=== PATIENT | female | born 1940 | race Caucasian/White ===

== ENCOUNTER 2017-05-02 06:16 | Emergency (ER) | payer MEDICARE, OTHER ==
[~2017-05-02] VITALS: Ht 175.3 cm; Wt 93.0 kg
[~2017-05-02 06:16] MED LIST: ACET325 PO; ACETAMINOPHEN500 MG PO; ALUMAG30SU PO; AMIT25 PO; ASPI81EC PO; ATOR40TA PO; Acetaminophen325 M1 PO; BISA10S PR; BISA5EC PO; BISHYD10 PO; BISHYD5 PO; BISO5 PO; BUTASPCAFT PO; Bacid1 EACH PO; Bactrim Ds Tab1 EACH PO; CALCAVITD PO; CALCAVITDA PO; CELE200 PO; CHLAMI PO; COLE625 PO; Cardizem CD 24240 MG PO; Cipro500 MG PO; DILT180 PO; DOCU100 PO; Diltiazem ER240 MG PO; ERGO400 PO; ESTR2 PO; FLUC150A PO; FURO40 PO; Flagyl500 MG PO; Florastor250 MG PO; GABA300 PO; GAVILAX17 GM PO; GEMF600; GEMF600 PO; GUAI600T33 PO; Glimepiride1 MG PO; HYDR1TAB94 PO; HYDRA25 PO; INSDET100 SC; INSU100I6 SC; Keflex500 MG PO; LISI5 PO; LOVA20 PO; LOVA40 PO; Lomotil Tablet1 EACH PO; MELO7.5 PO; METO50ER PO; METR500 PO; Milk Of Ma400 MG/5 M PO; Nystatin15 GM TOP; OMEP20ER PO; OXYC5 PO; Omeprazole20 M1; PANT40 PO; POTA10T PO; POTCHL10ER PO; POTCHL20ER PO; POTPHO PO; PROM25 PO; PSEU120ER PO; Pantoprazole So40 MG PO; Pedi-Dri 100,0060 GM TOP; Percocet 5-3251 EACH PO; Protonix40 MG PO; Questran4 GM PO; RANI150 PO; Roxicodone5 MG PO; SACC250C PO; SENN187 PO; Sulfamethoxazo1 EAC4 PO; TEMA15 PO; TRAN2 PO; TRAN4 PO; Toprol Xl50 MG PO; VANCOCIN HCL PO; XARELTO15 MG PO; ZINC20TO TOP; [UNRECOGNIZED DRUG - OTHER] MM
[2017-05-02 06:54] LABS: Source, Urine Clean Catch
[2017-05-02 06:57] LABS: Bilirubin, Urine Neg (Neg); Blood, Urine 3+ (Neg); Glucose Qualitative, Urine Neg (Neg); Ketones, Urine Neg (Neg); Leukocyte Esterase, Urine 3+ (Neg); Nitrite, Urine Neg (Neg); Protein, Urine 3+ (Neg); Specific Gravity, Urine 1.025 (1.003-1.022); Urobilinogen, Urine NORM (Normal)
[2017-05-02 07:02] LABS: Appearance, Urine Hazy (Clear); Color, Urine Yellow (P-Yellow)
[2017-05-02 07:03] LABS: Bacteria Many /hpf; Squamous Epithelial Cells Few /hpf (Few); White Blood Cells, Urine 25-50 /hpf (0-5)
[2017-05-02] MEDS ORDERED: Cipro500 MG PO (07:15)
[2017-05-02] MEDS ORDERED: Pyridium200 MG PO (07:15)
[2017-06-22] MEDS ORDERED: LOVA40 PO (08:26)
[2017-06-22] MEDS ORDERED: AMIT10 PO (08:26)
== END 2017-05-02 07:25 | disposition home or self-care (01) ==
LOC: ER 06:16
PROVIDERS: Emergency Medicine
DX: N39.0 Urinary tract infection, site not specified (principal); E11.40 Type 2 diabetes mellitus with diabetic neuropathy, unspecified; I10 Essential (primary) hypertension; Z91.048 Other nonmedicinal substance allergy status; Z91.018 Allergy to other foods; Z88.8 Allergy status to other drugs, medicaments and biological substances; Z79.899 Other long term (current) drug therapy; Z79.4 Long term (current) use of insulin
CPT/HCPCS: 81001; 87077; 87086; 87186; 99283

== ENCOUNTER 2017-06-05 10:58 | Emergency (ER) | payer MEDICARE, OTHER ==
[~2017-06-05] VITALS: Ht 165.1 cm; Wt 81.7 kg
[~2017-06-05 10:58] MED LIST changes: +Pyridium200 MG PO
[2017-06-05 12:29] LABS: Source, Urine Clean Catch
[2017-06-05 12:44] LABS: Bilirubin, Urine Neg (Neg); Blood, Urine 2+ (Neg); Glucose Qualitative, Urine Neg (Neg); Ketones, Urine Neg (Neg); Leukocyte Esterase, Urine 3+ (Neg); Nitrite, Urine Neg (Neg); Protein, Urine 2+ (Neg); Urobilinogen, Urine NORM (Normal)
[2017-06-05 12:58] LABS: Adenovirus F 40/41 Not Detected (NOT DETECT); Astrovirus Not Detected (NOT DETECT); Campylobacter Sp Not Detected (NOT DETECT); Cryptosporidium Not Detected (NOT DETECT); Cyclospora Cayetanensis Not Detected (NOT DETECT); E. Coli O157 Not Detected (NOT DETECT); Entamoeba Histolytica Not Detected (NOT DETECT); Enteroaggregative E. coli-EAEC Not Detected (NOT DETECT); Enteropathogenic E. coli-EPEC Not Detected (NOT DETECT); Enterotoxigenic E. coli-ETEC Not Detected (NOT DETECT); Giardia Lamblia Not Detected (NOT DETECT); Norovirus GI/GII Not Detected (NOT DETECT); Plesiomonas Shigelloides Not Detected (NOT DETECT); Rotavirus A Not Detected (NOT DETECT); Salmonella Sp Not Detected (NOT DETECT); Sapovirus Not Detected (NOT DETECT); Shiga Toxin-prod E. coli-STEC Not Detected (NOT DETECT); Shigella/Enteroin E. coli-EIEC Not Detected (NOT DETECT); Vibrio Cholerae Not Detected (NOT DETECT); Vibrio Sp Not Detected (NOT DETECT); Yersinia Enterocolitica Not Detected (NOT DETECT)
[2017-06-05 13:03] LABS: BASOPHILS ABSOLUTE AUTO 0.04 K/mm3 (0.00-0.23); BASOPHILS PERCENT AUTO 0 % (0-2); EOSINOPHILS PERCENT AUTO 1 % (0-6); Hematocrit 40.6 % (33.0-51.0); Hemoglobin 13.2 g/dL (11.5-16.0); IMMATURE GRAN ABSOLUTE AUTO 0.03 K/mm3 (0.00-0.10); IMMATURE GRAN PERCENT AUTO 0 % (0-1); LYMPHOCYTES ABSOLUTE AUTO 4.18 K/mm3 (0.84-5.20); LYMPHOCYTES PERCENT AUTO 29 % (21-46); MONOCYTES PERCENT AUTO 10 % (4-13); Mean Corpuscular HGB 29.4 pg (26.0-34.0); Mean Corpuscular HGB Conc 32.5 g/dL (31.5-36.5); Mean Corpuscular Volume 90 fL (80-100); Mean Platelet Volume 10.3 fL (9.1-12.4); NEUTROPHILS ABSOLUTE AUTO 8.67 K/mm3 (1.96-9.15); NEUTROPHILS PERCENT AUTO 60 % (41-73); Platelet Count 277 K/mm3 (150-400); RDW Coefficient Variation 13.4 % (11.7-14.2); RDW Standard Deviation 44.3 fL (35.1-46.3); Red Blood Cell Count 4.49 M/mm3 (3.80-5.20); White Blood Cell Count 14.52 K/mm3 (4.00-11.30)
[2017-06-05 13:09] LABS: Appearance, Urine Hazy (Clear); Color, Urine Yellow (P-Yellow)
[2017-06-05 13:11] LABS: Squamous Epithelial Cells Few /hpf (Few); White Blood Cells, Urine 25-50 /hpf (0-5)
[2017-06-05 13:12] LABS: Bacteria Few /hpf; Transitional Epithelial Cells Few /hpf (0-Rare)
[2017-06-05 13:13] LABS: Renal Epithelial Few /hpf (0-Rare)
[2017-06-05 13:28] LABS: Alanine Aminotransfer (ALT/SGP 25 U/L (12-78); Albumin, Blood 3.4 g/dL (3.4-5.0); Albumin/Globulin Ratio 0.8 (0.8-1.8); Alk Phos 79 U/L (50-136); Anion Gap 6 mmol/L (6-16); Aspartate Aminotrans (AST/SGOT 12 U/L (12-37); Bilirubin, Total 0.3 mg/dL (0.1-1.0); Blood Urea Nitrogen 21 mg/dL (8-24); Bun/Creatinine Ratio 22.2 (12.0-20.0); CO2, Blood 29 mmol/L (21-32); Calcium, Blood 9.9 mg/dL (8.5-10.1); Chloride, Blood 105 mmol/L (98-108); Creatinine, Blood 0.95 mg/dL (0.40-1.00); Globulin, Blood 4.3 g/dL (2.2-4.0); Glomerular Filtration Rate >60 (60-); Glucose, Blood 116 mg/dL (70-99); Potassium, Blood 4.2 mmol/L (3.5-5.5); Sodium, Blood 140 mmol/L (136-145); Total Protein, Blood 7.7 g/dL (6.4-8.2)
[2017-06-05] MEDS ORDERED: Keflex500 MG PO (13:39)
[2017-06-05] MEDS ORDERED: Pyridium200 MG PO (13:40)
== END 2017-06-05 14:18 | disposition home or self-care (01) ==
LOC: ER 10:58
PROVIDERS: Emergency Medicine
DX: N39.0 Urinary tract infection, site not specified (principal); L08.9 Local infection of the skin and subcutaneous tissue, unspecified; E11.40 Type 2 diabetes mellitus with diabetic neuropathy, unspecified; I10 Essential (primary) hypertension; Z85.528 Personal history of other malignant neoplasm of kidney
CPT/HCPCS: 36415; 80053; 81001; 85025; 87077; 87086; 87186; 87507; 96365; 99283; J0696

== ENCOUNTER 2017-06-22 07:29 | Emergency (ER) | payer MEDICARE, OTHER ==
[~2017-06-22] VITALS: Ht 165.1 cm; Wt 81.7 kg
[2017-06-22 07:49] LABS: BASOPHILS ABSOLUTE AUTO 0.03 K/mm3 (0.00-0.23); BASOPHILS PERCENT AUTO 0 % (0-2); EOSINOPHILS ABSOLUTE AUTO 0.19 K/mm3 (0.00-0.68); EOSINOPHILS PERCENT AUTO 2 % (0-6); Hematocrit 40.7 % (33.0-51.0); Hemoglobin 13.1 g/dL (11.5-16.0); IMMATURE GRAN ABSOLUTE AUTO 0.02 K/mm3 (0.00-0.10); IMMATURE GRAN PERCENT AUTO 0 % (0-1); LYMPHOCYTES ABSOLUTE AUTO 2.51 K/mm3 (0.84-5.20); LYMPHOCYTES PERCENT AUTO 29 % (21-46); MONOCYTES ABSOLUTE AUTO 0.58 K/mm3 (0.16-1.47); MONOCYTES PERCENT AUTO 7 % (4-13); Mean Corpuscular HGB 29.6 pg (26.0-34.0); Mean Corpuscular HGB Conc 32.2 g/dL (31.5-36.5); Mean Corpuscular Volume 92 fL (80-100); Mean Platelet Volume 10.2 fL (9.1-12.4); NEUTROPHILS ABSOLUTE AUTO 5.44 K/mm3 (1.96-9.15); NEUTROPHILS PERCENT AUTO 62 % (41-73); Platelet Count 236 K/mm3 (150-400); RDW Coefficient Variation 13.1 % (11.7-14.2); Red Blood Cell Count 4.42 M/mm3 (3.80-5.20); White Blood Cell Count 8.77 K/mm3 (4.00-11.30)
[2017-06-22 08:01] LABS: International Normalized Ratio 1.01; Prothrombin Time Results 10.5 Sec (9.7-11.5)
[2017-06-22 08:10] LABS: Alanine Aminotransfer (ALT/SGP 51 U/L (12-78); Albumin, Blood 3.3 g/dL (3.4-5.0); Albumin/Globulin Ratio 0.8 (0.8-1.8); Alk Phos 77 U/L (50-136); Anion Gap 7 mmol/L (6-16); Aspartate Aminotrans (AST/SGOT 34 U/L (12-37); Bilirubin, Total 0.2 mg/dL (0.1-1.0); Blood Urea Nitrogen 21 mg/dL (8-24); Bun/Creatinine Ratio 24.2 (12.0-20.0); CO2, Blood 27 mmol/L (21-32); Calcium, Blood 9.2 mg/dL (8.5-10.1); Chloride, Blood 108 mmol/L (98-108); Creatinine, Blood 0.87 mg/dL (0.40-1.00); Ethanol (Alcohol), Blood, Med <3 mg/dL; Glomerular Filtration Rate >60 (60-); Glucose, Blood 145 mg/dL (70-99); Potassium, Blood 4.1 mmol/L (3.5-5.5); Sodium, Blood 142 mmol/L (136-145); Total Protein, Blood 7.3 g/dL (6.4-8.2)
[2017-06-22] MEDS ORDERED: LOVA40 (08:26)
[2017-06-22] MEDS ORDERED: TERB250 PO (08:26)
[2017-06-22] MEDS ORDERED: AMIT10 (08:26)
[2017-06-22] MEDS ORDERED: Lotrimin Ultra12 GM (08:26)
== END 2017-06-22 09:00 | disposition home or self-care (01) ==
LOC: ER 07:29
PROVIDERS: Physician Assistant
DX: S00.83XA Contusion of other part of head, initial encounter (principal); E11.40 Type 2 diabetes mellitus with diabetic neuropathy, unspecified; I10 Essential (primary) hypertension; Z91.048 Other nonmedicinal substance allergy status; Z91.018 Allergy to other foods; Z88.8 Allergy status to other drugs, medicaments and biological substances; Z79.899 Other long term (current) drug therapy; Z79.4 Long term (current) use of insulin; Z79.01 Long term (current) use of anticoagulants; W18.30XA Fall on same level, unspecified, initial encounter
CPT/HCPCS: 36415; 70450; 80053; 83690; 85025; 85610; 85730; 96374; 99284; G0480; J0360

== ENCOUNTER 2017-10-22 20:54 | Emergency (ER) | payer MEDICARE ==
[~2017-10-22] VITALS: Ht 165.1 cm; Wt 79.4 kg
[~2017-10-22 20:54] MED LIST changes: +AMIT10 PO; +Lotrimin Ultra12 GM; +TERB250 PO
[2017-10-22] MEDS ORDERED: METO100ER PO (21:10)
[2017-10-22] MEDS ORDERED: TRIM100 PO (21:13)
[2017-10-22] MEDS ORDERED: FISH OIL 1,0001 EAC1 PO (21:15)
[2017-10-22] MEDS ORDERED: METF500C PO (21:16)
[2017-10-22] MEDS ORDERED: MYRBETRIQ50 MG PO (21:17)
[2017-10-22] MEDS ORDERED: TROSPIUM CHLORI20 MG PO (21:17)
[2017-10-22] MEDS ORDERED: ESTROVEN 155 M155 MG (21:18)
[2017-10-22 21:59] LABS: BASOPHILS ABSOLUTE AUTO 0.03 K/mm3 (0.00-0.23); BASOPHILS PERCENT AUTO 0 % (0-2); EOSINOPHILS ABSOLUTE AUTO 0.21 K/mm3 (0.00-0.68); EOSINOPHILS PERCENT AUTO 3 % (0-6); Hematocrit 41.3 % (33.0-51.0); Hemoglobin 13.7 g/dL (11.5-16.0); IMMATURE GRAN ABSOLUTE AUTO 0.01 K/mm3 (0.00-0.10); IMMATURE GRAN PERCENT AUTO 0 % (0-1); LYMPHOCYTES ABSOLUTE AUTO 3.36 K/mm3 (0.84-5.20); LYMPHOCYTES PERCENT AUTO 42 % (21-46); MONOCYTES ABSOLUTE AUTO 0.68 K/mm3 (0.16-1.47); MONOCYTES PERCENT AUTO 9 % (4-13); Mean Corpuscular HGB 31.1 pg (26.0-34.0); Mean Corpuscular HGB Conc 33.2 g/dL (31.5-36.5); Mean Corpuscular Volume 94 fL (80-100); Mean Platelet Volume 9.8 fL (9.1-12.4); NEUTROPHILS ABSOLUTE AUTO 3.64 K/mm3 (1.96-9.15); NEUTROPHILS PERCENT AUTO 46 % (41-73); Platelet Count 218 K/mm3 (150-400); RDW Coefficient Variation 13.7 % (11.7-14.2); RDW Standard Deviation 46.9 fL (35.1-46.3); White Blood Cell Count 7.93 K/mm3 (4.00-11.30)
[2017-10-22 22:12] LABS: Albumin, Blood 3.5 g/dL (3.4-5.0); Albumin/Globulin Ratio 0.9 (0.8-1.8); Bilirubin, Total 0.2 mg/dL (0.1-1.0); Bun/Creatinine Ratio 18.9 (12.0-20.0); Calcium, Blood 9.5 mg/dL (8.5-10.1); Creatinine, Blood 1.11 mg/dL (0.40-1.00); Globulin, Blood 3.8 g/dL (2.2-4.0); Potassium, Blood 4.1 mmol/L (3.5-5.5); Total Protein, Blood 7.3 g/dL (6.4-8.2)
[2017-10-22 22:25] LABS: Source, Urine Clean Catch
[2017-10-22 22:28] LABS: Bilirubin, Urine Neg (Neg); Blood, Urine 5+ (Neg); Glucose Qualitative, Urine Neg (Neg); Ketones, Urine Neg (Neg); Leukocyte Esterase, Urine 1+ (Neg); Nitrite, Urine Neg (Neg); Protein, Urine 3+ (Neg); Urobilinogen, Urine NORM (Normal)
[2017-10-22 22:40] LABS: Appearance, Urine Turbid (Clear); Color, Urine Red (P-Yellow)
[2017-10-22 22:41] LABS: Bacteria Rare /hpf; Red Blood Cells, Urine TNTC /hpf (0-2); Squamous Epithelial Cells Rare /hpf (Few); Transitional Epithelial Cells Few /hpf (0-Rare)
== END 2017-10-23 | disposition home or self-care (01) ==
LOC: ER 20:54
PROVIDERS: Emergency Medicine
DX: R31.9 Hematuria, unspecified (principal); E11.40 Type 2 diabetes mellitus with diabetic neuropathy, unspecified; I10 Essential (primary) hypertension; Z91.048 Other nonmedicinal substance allergy status; Z91.018 Allergy to other foods; Z88.8 Allergy status to other drugs, medicaments and biological substances; Z79.899 Other long term (current) drug therapy
CPT/HCPCS: 36415; 74176; 80053; 81001; 85025; 87077; 87086; 87186; 99283-25

== ENCOUNTER → 2017-11-17 | Outpatient (CLI) | payer MEDICARE, OTHER ==
[~2017-11-17] MED LIST changes: +ESTROVEN 155 M155 MG; +FISH OIL 1,0001 EAC1 PO; +METF500C PO; +METO100ER PO; +MYRBETRIQ50 MG PO; +TRIM100 PO; +TROSPIUM CHLORI20 MG PO
== END ==
LOC: LAB EV 05:26 → LAB FUT 06-14 11:50 → EDSTATUS 06-14 11:50
DX: R19.7 Diarrhea, unspecified (principal)
CPT/HCPCS: 87493

== ENCOUNTER 2018-02-13 20:35 | Emergency (ER) | payer MEDICARE, OTHER ==
[~2018-02-13] VITALS: Ht 165.1 cm; Wt 82.5 kg
[~2018-02-13 20:35] MED LIST changes: -Bactrim 400-801 EACH PO
[2018-02-13] MEDS ORDERED: Bactrim 400-801 EACH PO (21:17)
== END 2018-02-13 23:05 | disposition home or self-care (01) ==
LOC: ER 20:35
DX: S09.90XA Unspecified injury of head, initial encounter (principal); Z79.01 Long term (current) use of anticoagulants; W01.198A Fall on same level from slipping, tripping and stumbling with subsequent striking against other object, initial encounter; Z91.018 Allergy to other foods; Z88.8 Allergy status to other drugs, medicaments and biological substances; Z91.048 Other nonmedicinal substance allergy status; Z79.899 Other long term (current) drug therapy; E11.40 Type 2 diabetes mellitus with diabetic neuropathy, unspecified; I10 Essential (primary) hypertension; Z86.73 Personal history of transient ischemic attack (TIA), and cerebral infarction without residual deficits
CPT/HCPCS: 70450; 72125; 99284-25

== ENCOUNTER → 2018-02-13 | Outpatient (CLI) | payer MEDICARE, SELFPAY ==
[~2018-02-13] MED LIST changes: +Bactrim 400-801 EACH PO
[2018-02-13 12:31] LABS: Blood, Urine 5+ (Neg); Glucose Qualitative, Urine Neg (Neg); Ketones, Urine Neg (Neg); Leukocyte Esterase, Urine 3+ (Neg); Nitrite, Urine Pos (Neg); Protein, Urine 3+ (Neg); Specific Gravity, Urine 1.015 (1.003-1.022); Urobilinogen, Urine 2+ (Normal)
[2018-02-13 12:43] LABS: Bilirubin, Urine 2+ (Neg)
[2018-02-13 12:46] LABS: Appearance, Urine Hazy (Clear); Bacteria Few /hpf; Color, Urine Amber (P-Yellow); Red Blood Cells, Urine TNTC /hpf (0-2); Squamous Epithelial Cells Not Seen /hpf (Few); White Blood Cells, Urine TNTC /hpf (0-5)
== END | disposition home or self-care (01) ==
LOC: LAB 12:14 → LAB SHORT 12:14 → LAB FUT 02-13 09:50 → EDSTATUS 02-13 09:50
PROVIDERS: Urology
DX: Z09 Encounter for follow-up examination after completed treatment for conditions other than malignant neoplasm (principal); Z87.440 Personal history of urinary (tract) infections
CPT/HCPCS: 81001; 87077; 87086; 87186

== ENCOUNTER 2018-03-05 15:13 | Emergency (ER) | payer MEDICARE, SELFPAY ==
[~2018-03-05] VITALS: Ht 165.1 cm; Wt 82.5 kg
[~2018-03-05 15:13] MED LIST changes: +Bactrim 400-801 EACH PO
== END 2018-03-05 16:25 | disposition home or self-care (01) ==
LOC: ER 15:13
DX: R31.9 Hematuria, unspecified (principal); Z91.048 Other nonmedicinal substance allergy status; Z91.040 Latex allergy status; Z88.8 Allergy status to other drugs, medicaments and biological substances; Z79.899 Other long term (current) drug therapy; E11.40 Type 2 diabetes mellitus with diabetic neuropathy, unspecified; I10 Essential (primary) hypertension; Z86.73 Personal history of transient ischemic attack (TIA), and cerebral infarction without residual deficits
CPT/HCPCS: 51702; 99283

== ENCOUNTER 2018-03-07 13:21 | Observation (INO) | payer MEDICARE, SELFPAY ==
[~2018-03-07] VITALS: Ht 165.1 cm; Wt 84.9 kg
[2018-03-07 14:10] LABS: Source, Urine Clean Catch
[2018-03-07 14:20] LABS: Bilirubin, Urine Neg (Neg); Blood, Urine 5+ (Neg); Glucose Qualitative, Urine Neg (Neg); Ketones, Urine 1+ (Neg); Leukocyte Esterase, Urine 2+ (Neg); Nitrite, Urine Pos (Neg); Protein, Urine 3+ (Neg); Specific Gravity, Urine 1.015 (1.003-1.022); Urobilinogen, Urine NORM (Normal)
[2018-03-07 14:33] LABS: Appearance, Urine Cloudy (Clear); Color, Urine Brown (P-Yellow)
[2018-03-07 14:35] LABS: Red Blood Cells, Urine TNTC /hpf (0-2)
[2018-03-07 14:36] LABS: Bacteria Not Seen /hpf; Squamous Epithelial Cells Not Seen /hpf (Few)
[2018-03-07 14:44] LABS: BASOPHILS ABSOLUTE AUTO 0.03 K/mm3 (0.00-0.23); BASOPHILS PERCENT AUTO 0 % (0-2); EOSINOPHILS ABSOLUTE AUTO 0.18 K/mm3 (0.00-0.68); EOSINOPHILS PERCENT AUTO 2 % (0-6); Hematocrit 37.7 % (33.0-51.0); Hemoglobin 11.8 g/dL (11.5-16.0); IMMATURE GRAN ABSOLUTE AUTO 0.02 K/mm3 (0.00-0.10); IMMATURE GRAN PERCENT AUTO 0 % (0-1); LYMPHOCYTES ABSOLUTE AUTO 4.02 K/mm3 (0.84-5.20); LYMPHOCYTES PERCENT AUTO 44 % (21-46); MONOCYTES ABSOLUTE AUTO 0.78 K/mm3 (0.16-1.47); MONOCYTES PERCENT AUTO 9 % (4-13); Mean Corpuscular HGB 31.4 pg (26.0-34.0); Mean Corpuscular HGB Conc 31.3 g/dL (31.5-36.5); Mean Corpuscular Volume 100 fL (80-100); Mean Platelet Volume 9.4 fL (9.1-12.4); NEUTROPHILS ABSOLUTE AUTO 4.12 K/mm3 (1.96-9.15); NEUTROPHILS PERCENT AUTO 45 % (41-73); Platelet Count 237 K/mm3 (150-400); RDW Coefficient Variation 14.4 % (11.7-14.2); RDW Standard Deviation 51.4 fL (35.1-46.3); Red Blood Cell Count 3.76 M/mm3 (3.80-5.20); White Blood Cell Count 9.15 K/mm3 (4.00-11.30)
[2018-03-07 15:19] LABS: Albumin, Blood 3.5 g/dL (3.4-5.0); Albumin/Globulin Ratio 1.1 (0.8-1.8); Bilirubin, Total 0.2 mg/dL (0.1-1.0); Bun/Creatinine Ratio 17.9 (12.0-20.0); Calcium, Blood 9.4 mg/dL (8.5-10.1); Creatinine, Blood 1.4 mg/dL (0.40-1.00); Globulin, Blood 3.3 g/dL (2.2-4.0); Potassium, Blood 4.9 mmol/L (3.5-5.5); Total Protein, Blood 6.8 g/dL (6.4-8.2)
[2018-03-07 21:34] LABS: Magnesium, Blood 2.2 mg/dL (1.6-2.4)
[2018-03-07 21:37] LABS: Thyroid Stimulating Hormone 1.03 uIU/mL (0.360-4.800)
--- NOTE | 2018-03-07 22:49 | NUR ---
PALLIATIVE CARE CONSULT NOTIFIED VIA [facility] [place]. LEFT MESSAGE FOR PALLIATIVE CARE ON [facility] REGARDING CONSULT FOR THIS PT AT 2250 HOURS ON 03/07/2018.
--- NOTE | 2018-03-08 03:16 | NUR ---
RECEIVED ED HANDOFF REPORT *LATE ENTRY* 1950 HOURS RECEIVED HANDOFF REPORT FROM ED NURSE JEFFERY. PT ADMITTED FOR ACUTE ONSET SEVERE WEAKNESS, GENERAL OBSERVATION STATUS. PT WAS PREVIOUSLY ABLE TO AMBULATE W/FWW. NOW IS UNABLE TO WALK. FELL 3 WEEKS AGO, INJURED HEAD, FAMILY STATES SHE HAS BEEN WEAK EVER SINCE. PAST 3 DAYS - FAMILY STATES SHE IS WEAKER. HX OF HTN, CVA, CKD (3), AFIB, NEUROPATHY, AND DIABETES. PT IS ON RA, NOT ON TELEMETRY, IS ACHS CHEMSTICKS, ADA DIET, HAS CHRONIC CATHETER (REPLACED IN OUR ED, ALLERGY TO LATEX IS NOTABLE). SHE IS MAX ASSIST. PT TRANSFERED TO MEDICAL FLOOR WITHOUT INCIDENT, ORIENTED TO UNIT. SHE IS A&O X4.
--- NOTE | 2018-03-08 04:12 | NUR ---
SHIFT SUMMARY NEW ADMIT FROM ED, ADMITTED FOR OBSERVATION. PT ARRIVED WITH A SABILLON FOR INCONTINENCE (CHANGED IN ED). PT EXPERIENCING SEVERE WEAKNESS IN LEGS AND CANNOT WALK. MICHAEL SMART REQUIRED IN ED TO TRANSFER, HX OF FALLS (HEAD INJURY - CT NORMAL). FAMILY CONCERNED SHE IS UNSAFE TO GO HOME. PT,OT, CORK SLABS SAWYER (REHAB FOLLOWING DC?), AND PALLIATIVE CARE ARE CONSULTING. PT IS ACHS (HX OF DIABETES, LOW SS, INSULIN COVERAGE). SHE IS ON RA, NO TELEMETRY MX.
--- NOTE | 2018-03-08 05:05 | NUR ---
PT STATUS PT STATES SHE TAKES HER MEDS AT HOME WITH APPLESAUCE, SO I HAVE CONTINUED WITH THAT WHILE SHE IS ADMITTED HERE.
[2018-03-08 05:30] LABS: Hematocrit 38.6 % (33.0-51.0); Hemoglobin 11.8 g/dL (11.5-16.0); Mean Corpuscular HGB 30.9 pg (26.0-34.0); Mean Corpuscular HGB Conc 30.6 g/dL (31.5-36.5); Mean Corpuscular Volume 101 fL (80-100); Mean Platelet Volume 9.5 fL (9.1-12.4); Platelet Count 238 K/mm3 (150-400); RDW Coefficient Variation 14.5 % (11.7-14.2); RDW Standard Deviation 53.3 fL (35.1-46.3); Red Blood Cell Count 3.82 M/mm3 (3.80-5.20)
[2018-03-08 06:03] LABS: Bun/Creatinine Ratio 21.9 (12.0-20.0); Calcium, Blood 9.1 mg/dL (8.5-10.1); Creatinine, Blood 1.28 mg/dL (0.40-1.00); Potassium, Blood 4.4 mmol/L (3.5-5.5)
--- NOTE | 2018-03-08 16:44 | NUR ---
SHIFT SUMMARY PT AXO, PLEASANT AND COOPERATIVE WITH CARE. VSS. PT REFUSED PAIN MEDICATION THOUGH STATES THAT HER NEUROPATHIC PAIN IS AN 8/10. SHE STATES THAT TYLENOL IS NOT EFFECTIVE PAIN CONTROL. PT MEDICATED FOR CONSTIPATION PER EMAR. PT HAD A MEDIUM BM THIS SHIFT AFTER ENEMA. PHYSICAL AND OCCUPATIONAL THERAPY EVALUATED, SEE NOTE. PT CONTINUES TO NEED LIFT FOR TRANSFER. WAS UP TO CHAIR X1 THIS SHIFT, WILL TRY TO GET HER UP AGAIN BEFORE DINNER. IV PATENT, SALINE LOCKED. BED IN LOW POSITIONM, CALL LIGHT WITHIN REACH. SABILLON PATENT AND DRAINING CLEAR YELLOW URINE.
--- NOTE | 2018-03-09 05:12 | NUR ---
SHIFT SUMMARY A/O, ABLE TO MAKE NEEDS KNOWN. COOPERATIVE WITH CARE. ANSWERS QUESTIONS APPROPRIATELY. NO C/O PAIN/DISCOMFORT. DAY SHIFT RN STATED THAT TYLENOL DOES NOT HELP WITH PT NEUROPATHY; NEW ORDER FOR ELAVIL GIVEN DURING DAY SHIFT. RECEIVED A SUPPOSITORY R/T ABDOMINAL DISCOMFORT EXPERESSED BY PT. NO BM AFTER A FEW HOURS; SO, GIVEN AN ENEMA. RESULTS ACCORDING TO DOCUMENTATION NOTE A MEDIUM BROWN BM. SINCE THAT TIME PT HAS HAD 4 EPISODES OF WATERY LIQUIDOUS STOOL. NO C/O ABDOMINAL DISCOMFORT. NOTED HX OF RECURRENT C-DIFF. WILL ALERT DAY RN TO FOLLOW UP WITH PHYSICIAN ABOUT TESTING FOR C-DIFF. NO OTHER ACUTE CHANGES NOTED. APPEARED TO REST MOST OF SHIFT. BED IN LOWEST POSITION. ALARM ON. CALL LIGHT AND BELONINGS WITHIN REACH. WCTM. REPORT TO ONCOMING RN.
[2018-03-09 06:08] LABS: Bun/Creatinine Ratio 27.1 (12.0-20.0); Calcium, Blood 8.8 mg/dL (8.5-10.1); Creatinine, Blood 1.44 mg/dL (0.40-1.00); Potassium, Blood 4.1 mmol/L (3.5-5.5)
--- NOTE | 2018-03-09 14:44 | NUR ---
PATIENT TO DISCHARGE TO HOME. IV REMOVED. NO SS OF INFECTION NOTED. PATIENT ASSISTED BY PT PRIOR TO DC. PATIENT HAD SABILLON BAG DRAINED. TO BE TAKEN HOME IN BY SON. NURSE WENT OVER DISCHARGE AND MEDS WITH PATIENTS SON. MEDS CALLED INTO PHARMACY OF CHOICE.
== END 2018-03-09 14:52 | disposition home health service (06) ==
LOC: ER 13:21 → MEDS 18:59
PROVIDERS: Internal Medicine; Nurse Practitioner Acute Care; Physician Assistant; ADMIT Internal Medicine
DX: N17.9 Acute kidney failure, unspecified (principal); R53.1 Weakness; I12.9 Hypertensive chronic kidney disease with stage 1 through stage 4 chronic kidney disease, or unspecified chronic kidney disease; N18.3 Chronic kidney disease, stage 3 (moderate); K59.09 Other constipation; E78.5 Hyperlipidemia, unspecified; E11.42 Type 2 diabetes mellitus with diabetic polyneuropathy; K21.9 Gastro-esophageal reflux disease without esophagitis; E55.9 Vitamin D deficiency, unspecified; I69.354 Hemiplegia and hemiparesis following cerebral infarction affecting left non-dominant side; Z85.528 Personal history of other malignant neoplasm of kidney; Z87.440 Personal history of urinary (tract) infections; Z90.5 Acquired absence of kidney; Z79.01 Long term (current) use of anticoagulants; Z95.0 Presence of cardiac pacemaker; Z79.84 Long term (current) use of oral hypoglycemic drugs; Z79.899 Other long term (current) drug therapy; Z88.8 Allergy status to other drugs, medicaments and biological substances; Z91.040 Latex allergy status
CPT/HCPCS: 36415; 70450; 71045; 80048; 80053; 81001; 82550; 82947; 83735; 84443; 85025; 85027; 87081; 87086; 93005; 93010; 97110; 97112; 97162; 97167; 97530; 97535; 99285-25; G0378; G8987; G8988

== ENCOUNTER → 2018-05-03 | Outpatient (CLI) | payer MEDICARE, OTHER ==
[2018-05-03 14:39] LABS: Candida species (DNA Probe) Negative (NEGATIVE); G. vaginalis (DNA Probe) Negative (NEGATIVE); T. vaginalis (DNA Probe) Negative (NEGATIVE)
== END | disposition home or self-care (01) ==
LOC: LAB SHORT 08:57 → LAB 08:57
PROVIDERS: Obstetrics & Gynecology
DX: N76.0 Acute vaginitis (principal)
CPT/HCPCS: 87480; 87510; 87660

== ENCOUNTER → 2018-06-14 | Outpatient (CLI) | payer MEDICARE, OTHER ==
[2018-06-15 08:40] LABS: Candida species (DNA Probe) Negative (NEGATIVE); G. vaginalis (DNA Probe) Negative (NEGATIVE); T. vaginalis (DNA Probe) Negative (NEGATIVE)
== END | disposition home or self-care (01) ==
LOC: LAB SHORT 12:29 → LAB 12:29
PROVIDERS: Obstetrics & Gynecology
DX: N76.0 Acute vaginitis (principal)
CPT/HCPCS: 87480; 87510; 87660

== ENCOUNTER 2018-07-10 07:28 | Day surgery (SDC) | payer MEDICARE, OTHER | END 2018-07-10 22:36 | disposition home or self-care (01) | LOC: WOUND 07:28 | DX: E11.621 Type 2 diabetes mellitus with foot ulcer (principal); L97.522 Non-pressure chronic ulcer of other part of left foot with fat layer exposed; L97.511 Non-pressure chronic ulcer of other part of right foot limited to breakdown of skin; L97.421 Non-pressure chronic ulcer of left heel and midfoot limited to breakdown of skin; I10 Essential (primary) hypertension; E78.5 Hyperlipidemia, unspecified; Z85.528 Personal history of other malignant neoplasm of kidney | CPT/HCPCS: G0463 ==

== ENCOUNTER 2018-07-19 00:11 | Day surgery (SDC) | payer MEDICARE, OTHER | END 2018-07-19 22:47 | disposition home or self-care (01) | LOC: WOUND 00:11 | DX: E11.621 Type 2 diabetes mellitus with foot ulcer (principal); L97.521 Non-pressure chronic ulcer of other part of left foot limited to breakdown of skin; L97.511 Non-pressure chronic ulcer of other part of right foot limited to breakdown of skin; L97.421 Non-pressure chronic ulcer of left heel and midfoot limited to breakdown of skin ==

== ENCOUNTER 2018-07-25 00:17 | Day surgery (SDC) | payer MEDICARE, OTHER | END 2018-07-25 22:56 | disposition home or self-care (01) | LOC: WOUND 00:17 | DX: E11.622 Type 2 diabetes mellitus with other skin ulcer (principal); L97.522 Non-pressure chronic ulcer of other part of left foot with fat layer exposed; L97.421 Non-pressure chronic ulcer of left heel and midfoot limited to breakdown of skin; L97.511 Non-pressure chronic ulcer of other part of right foot limited to breakdown of skin; E11.40 Type 2 diabetes mellitus with diabetic neuropathy, unspecified; E11.51 Type 2 diabetes mellitus with diabetic peripheral angiopathy without gangrene; I73.9 Peripheral vascular disease, unspecified; I10 Essential (primary) hypertension; E78.5 Hyperlipidemia, unspecified | CPT/HCPCS: G0463 ==

== ENCOUNTER 2018-08-01 08:25 | Day surgery (SDC) | payer MEDICARE, OTHER ==
[~2018-08-01 08:25] MED LIST changes: -AMIT10 PO; -FISH OIL 1,0001 EAC1 PO; -METF500C PO; -METO100ER PO; -MYRBETRIQ50 MG PO; -XARELTO15 MG PO
== END 2018-08-01 23:19 | disposition home or self-care (01) ==
LOC: WOUND 08:25
DX: E11.621 Type 2 diabetes mellitus with foot ulcer (principal); L97.522 Non-pressure chronic ulcer of other part of left foot with fat layer exposed; L97.421 Non-pressure chronic ulcer of left heel and midfoot limited to breakdown of skin; E11.40 Type 2 diabetes mellitus with diabetic neuropathy, unspecified; E11.51 Type 2 diabetes mellitus with diabetic peripheral angiopathy without gangrene; I87.2 Venous insufficiency (chronic) (peripheral); I10 Essential (primary) hypertension; E78.5 Hyperlipidemia, unspecified

== ENCOUNTER 2018-08-08 08:23 | Day surgery (SDC) | payer MEDICARE | END 2018-08-08 22:44 | disposition home or self-care (01) | LOC: WOUND 08:23 | DX: E11.621 Type 2 diabetes mellitus with foot ulcer (principal); L97.422 Non-pressure chronic ulcer of left heel and midfoot with fat layer exposed; L97.521 Non-pressure chronic ulcer of other part of left foot limited to breakdown of skin; L97.511 Non-pressure chronic ulcer of other part of right foot limited to breakdown of skin; E11.40 Type 2 diabetes mellitus with diabetic neuropathy, unspecified; I73.9 Peripheral vascular disease, unspecified; I10 Essential (primary) hypertension; I87.2 Venous insufficiency (chronic) (peripheral); E78.5 Hyperlipidemia, unspecified | CPT/HCPCS: G0463 ==

== ENCOUNTER 2018-08-15 08:17 | Day surgery (SDC) | payer MEDICARE | END 2018-08-15 22:59 | disposition home or self-care (01) | LOC: WOUND 08:17 | DX: E11.621 Type 2 diabetes mellitus with foot ulcer (principal); L97.421 Non-pressure chronic ulcer of left heel and midfoot limited to breakdown of skin; L97.521 Non-pressure chronic ulcer of other part of left foot limited to breakdown of skin; L97.511 Non-pressure chronic ulcer of other part of right foot limited to breakdown of skin; I87.2 Venous insufficiency (chronic) (peripheral); I10 Essential (primary) hypertension; I73.9 Peripheral vascular disease, unspecified; E78.5 Hyperlipidemia, unspecified | CPT/HCPCS: G0463 ==

== ENCOUNTER 2018-08-22 08:02 | Day surgery (SDC) | payer MEDICARE | END 2018-08-22 23:21 | disposition home or self-care (01) | LOC: WOUND 08:02 | DX: E11.621 Type 2 diabetes mellitus with foot ulcer (principal); L97.421 Non-pressure chronic ulcer of left heel and midfoot limited to breakdown of skin; L97.521 Non-pressure chronic ulcer of other part of left foot limited to breakdown of skin; L97.511 Non-pressure chronic ulcer of other part of right foot limited to breakdown of skin; E11.51 Type 2 diabetes mellitus with diabetic peripheral angiopathy without gangrene; I73.9 Peripheral vascular disease, unspecified; E11.40 Type 2 diabetes mellitus with diabetic neuropathy, unspecified; I87.2 Venous insufficiency (chronic) (peripheral); I10 Essential (primary) hypertension; E78.5 Hyperlipidemia, unspecified | CPT/HCPCS: G0463 ==

== ENCOUNTER 2018-09-05 08:09 | Day surgery (SDC) | payer MEDICARE | END 2018-09-05 23:06 | disposition home or self-care (01) | LOC: WOUND 08:09 | DX: E11.621 Type 2 diabetes mellitus with foot ulcer (principal); L97.521 Non-pressure chronic ulcer of other part of left foot limited to breakdown of skin; L97.511 Non-pressure chronic ulcer of other part of right foot limited to breakdown of skin; I10 Essential (primary) hypertension; I87.2 Venous insufficiency (chronic) (peripheral); E78.5 Hyperlipidemia, unspecified; Z85.528 Personal history of other malignant neoplasm of kidney; Z87.19 Personal history of other diseases of the digestive system | CPT/HCPCS: G0463 ==

== ENCOUNTER → 2018-09-07 | Outpatient (CLI) | payer MEDICARE, SELFPAY ==
[~2018-09-07] MED LIST changes: +ASCO500 PO; +CEFU500T30 PO; +CHOL10002 PO; +ESTRADIOL 0.1 MG/GM VAG; +FISH OIL 1,0001 EAC1 PO; +Fosamax70 MG PO; +HUMALOG KW200 UNIT/1 SC; +KETO15TC TOP; +METF500 PO; +METO100ER PO; +MIRALAX17 GM PO; +MYRBETRIQ50 MG PO; +NITR100CA PO; +Nyamyc15 GM TOP; +Sulfamethoxazo1 EAC1 PO; +THERA1 EACH PO; +Ultram50 MG PO; +Vsl#3 Capsule1 EACH PO; +XARELTO PO; +XARELTO15 MG PO
== END | disposition home or self-care (01) ==
LOC: LAB EV 08:05 → LAB SHORT 08:05
DX: R30.0 Dysuria (principal)
CPT/HCPCS: 87077; 87086; 87186

== ENCOUNTER 2018-09-13 12:13 | Inpatient (IN) | payer MEDICARE, SELFPAY ==
[~2018-09-13] VITALS: Ht 165.1 cm; Wt 92.6 kg
[~2018-09-13 12:13] MED LIST changes: -ASCO500 PO; -CEFU500T30 PO; -CHOL10002 PO; -ESTRADIOL 0.1 MG/GM VAG; -FISH OIL 1,0001 EAC1 PO; -Fosamax70 MG PO; -HUMALOG KW200 UNIT/1 SC; -KETO15TC TOP; -METF500 PO; -METO100ER PO; -MIRALAX17 GM PO; -MYRBETRIQ50 MG PO; -NITR100CA PO; -Nyamyc15 GM TOP; -Sulfamethoxazo1 EAC1 PO; -THERA1 EACH PO; -Ultram50 MG PO; -Vsl#3 Capsule1 EACH PO; -XARELTO PO; -XARELTO15 MG PO
[2018-09-13 13:35] LABS: White Blood Cell Count 15.55 K/mm3 (4.00-11.30)
[2018-09-13 13:36] LABS: BASOPHILS ABSOLUTE AUTO 0.03 K/mm3 (0.00-0.23); BASOPHILS PERCENT AUTO 0 % (0-2); EOSINOPHILS ABSOLUTE AUTO 0.06 K/mm3 (0.00-0.68); EOSINOPHILS PERCENT AUTO 0 % (0-6); Hematocrit 45.1 % (33.0-51.0); Hemoglobin 14.3 g/dL (11.5-16.0); IMMATURE GRAN ABSOLUTE AUTO 0.05 K/mm3 (0.00-0.10); IMMATURE GRAN PERCENT AUTO 0 % (0-1); LYMPHOCYTES ABSOLUTE AUTO 4.02 K/mm3 (0.84-5.20); LYMPHOCYTES PERCENT AUTO 26 % (21-46); MONOCYTES ABSOLUTE AUTO 1.48 K/mm3 (0.16-1.47); MONOCYTES PERCENT AUTO 10 % (4-13); Mean Corpuscular HGB 30.6 pg (26.0-34.0); Mean Corpuscular HGB Conc 31.7 g/dL (31.5-36.5); Mean Corpuscular Volume 96 fL (80-100); Mean Platelet Volume 9.9 fL (9.1-12.4); NEUTROPHILS ABSOLUTE AUTO 9.91 K/mm3 (1.96-9.15); NEUTROPHILS PERCENT AUTO 64 % (41-73); Platelet Count 327 K/mm3 (150-400); RDW Coefficient Variation 14.1 % (11.7-14.2); RDW Standard Deviation 49.8 fL (35.1-46.3); Red Blood Cell Count 4.68 M/mm3 (3.80-5.20)
[2018-09-13 13:52] LABS: Alanine Aminotransfer (ALT/SGP 27 U/L (12-78); Albumin, Blood 3.4 g/dL (3.4-5.0); Albumin/Globulin Ratio 0.8 (0.8-1.8); Alk Phos 69 U/L (50-136); Anion Gap 8 mmol/L (6-16); Aspartate Aminotrans (AST/SGOT 18 U/L (12-37); Bilirubin, Total 0.3 mg/dL (0.1-1.0); Blood Urea Nitrogen 20 mg/dL (8-24); Bun/Creatinine Ratio 21.1 (12.0-20.0); CO2, Blood 23 mmol/L (21-32); Calcium, Blood 9.1 mg/dL (8.5-10.1); Chloride, Blood 110 mmol/L (98-108); Creatinine, Blood 0.95 mg/dL (0.40-1.00); Glomerular Filtration Rate >60 (60-); Glucose, Blood 195 mg/dL (70-99); Potassium, Blood 3.5 mmol/L (3.5-5.5); Sodium, Blood 141 mmol/L (136-145); Total Protein, Blood 7.4 g/dL (6.4-8.2)
[2018-09-13] MEDS ORDERED: XARELTO PO (15:25)
[2018-09-13] MEDS ORDERED: NITR100CA PO (15:38)
[2018-09-13 16:04] LABS: Source, Urine Clean Catch
[2018-09-13 16:08] LABS: Bilirubin, Urine Neg (Neg); Blood, Urine 5+ (Neg); Glucose Qualitative, Urine Neg (Neg); Ketones, Urine 1+ (Neg); Leukocyte Esterase, Urine 3+ (Neg); Nitrite, Urine Pos (Neg); Protein, Urine 4+ (Neg); Urobilinogen, Urine NORM (Normal); pH, Urine 6.5 (5.0-8.0)
[2018-09-13 16:29] LABS: Appearance, Urine Bloody (Clear); Color, Urine Red (P-Yellow)
[2018-09-13 16:32] LABS: Red Blood Cells, Urine TNTC /hpf (0-2); White Blood Cells, Urine TNTC /hpf (0-5)
[2018-09-13 16:33] LABS: Bacteria Many /hpf; Calcium Oxalate Crystals Few /hpf; Squamous Epithelial Cells Few /hpf (Few)
[2018-09-13] MEDS ORDERED: XARELTO15 MG PO (18:54)
[2018-09-13] MEDS ORDERED: AMIT25 PO (18:55)
[2018-09-13] MEDS ORDERED: METO100ER PO (18:55)
[2018-09-13] MEDS ORDERED: LOVA40 PO (18:55)
[2018-09-13] MEDS ORDERED: METF500 PO (18:56)
[2018-09-13] MEDS ORDERED: Sulfamethoxazo1 EAC1 PO (18:56)
[2018-09-13] MEDS ORDERED: MYRBETRIQ50 MG PO (18:56)
[2018-09-13] MEDS ORDERED: Ultram50 MG PO (18:58)
[2018-09-13] MEDS ORDERED: Fosamax70 MG PO (18:59)
[2018-09-13] MEDS ORDERED: GABA300 PO (19:00)
[2018-09-13] MEDS ORDERED: FISH OIL 1,0001 EAC1 PO (19:19)
[2018-09-13] MEDS ORDERED: CHOL10002 PO (19:19)
[2018-09-13] MEDS ORDERED: THERA1 EACH PO (19:19)
[2018-09-13] MEDS ORDERED: ASCO500 PO (19:20)
[2018-09-13] MEDS ORDERED: KETO15TC TOP (19:22)
[2018-09-13] MEDS ORDERED: Nyamyc15 GM TOP (19:26)
[2018-09-13] MEDS ORDERED: ESTRADIOL 0.1 MG/GM VAG (19:30)
[2018-09-13 19:31] LABS: Magnesium, Blood 2.2 mg/dL (1.6-2.4)
--- NOTE | 2018-09-14 02:24 | NUR ---
PATIENT ARRIVED TO [facility] AT APPROX 2100 VIA GURNEY FROM ER. PATIENT ALERT AND ORIENTED, DAUGHTER AT BEDSIDE. ATTEMPTED 16F AND 18F NG TUBE FOR LOW INTERMITTENT SUCTION. UNABLE TO PLACE, PATIENT STATES HER TONSILS AND THROAT HAVE BEEN SWOLLEN. PEDIATRIC TUBE PLACED SUCCESSFULLY, AUSCULTATED AIR, YELLOW GASTRIC FLUID VISUALIZED AFTER PATIENT PLACED TO LOW INTERMITTENT SUCTION PER MD ORDER. ADMISSION COMPLETED, VSS.
[2018-09-14 03:49] LABS: Hemoglobin 12.8 g/dL (11.5-16.0); Mean Corpuscular HGB 30.5 pg (26.0-34.0); Mean Corpuscular Volume 96 fL (80-100); Mean Platelet Volume 9.5 fL (9.1-12.4); Platelet Count 279 K/mm3 (150-400); RDW Coefficient Variation 14.3 % (11.7-14.2); RDW Standard Deviation 49.8 fL (35.1-46.3); Red Blood Cell Count 4.19 M/mm3 (3.80-5.20); White Blood Cell Count 15.54 K/mm3 (4.00-11.30)
[2018-09-14 04:08] LABS: Alanine Aminotransfer (ALT/SGP 23 U/L (12-78); Albumin, Blood 2.9 g/dL (3.4-5.0); Albumin/Globulin Ratio 0.8 (0.8-1.8); Alk Phos 55 U/L (50-136); Anion Gap 7 mmol/L (6-16); Aspartate Aminotrans (AST/SGOT 17 U/L (12-37); Bilirubin, Total 0.2 mg/dL (0.1-1.0); Blood Urea Nitrogen 17 mg/dL (8-24); Bun/Creatinine Ratio 19.9 (12.0-20.0); CO2, Blood 21 mmol/L (21-32); Calcium, Blood 8.1 mg/dL (8.5-10.1); Chloride, Blood 114 mmol/L (98-108); Creatinine, Blood 0.85 mg/dL (0.40-1.00); Globulin, Blood 3.6 g/dL (2.2-4.0); Glomerular Filtration Rate >60 (60-); Glucose, Blood 159 mg/dL (70-99); Potassium, Blood 2.8 mmol/L (3.5-5.5); Sodium, Blood 142 mmol/L (136-145); Total Protein, Blood 6.5 g/dL (6.4-8.2)
--- NOTE | 2018-09-14 04:39 | NUR ---
SHIFT SUMMARY: PATIENT COMPLIANT WITH TREATMENT AND USING CALL LIGHT APPROPRIATLY, RESTED WELL AFTER NG PLACEMENT. BED LOW AND LOCKED, CALL LIGHT WITHIN REACH, MONITORING CAREFULLY.
--- NOTE | 2018-09-14 10:15 | NUR ---
Advance directive education/spiritual care visit conducted. Upon receiving a referral for A.D. education and S.C., I asked patient if she had filed an A.D. and patient thought she did but her daughter in Law Megan, stated that she has not. So I discussed with patient about the importance and process of the A.D.. Patient then expressed interest in having the A.D. forms. I handed the A,D, forms to Megan and patient's son, Anthony. I went through each section and explained how to file. Patient and family expressed gratitude. I also talked with patient about her spiritual believes. Patient stated that she has none and that she leans on family for support and help through difficult times. I praised the family for being present for their mom. Patient shared about the recent loss of her of 54 years. I provided grief support. I will continue to remain available to patient and family.
--- NOTE | 2018-09-14 10:40 | NUR ---
Shift assessment completed. Son and Daughter are at the bedside, assisting with patient care. The pt states that he abdomen still feels very tight and full. It is distended and firm to the touch. She denies nausea and the NGT is to low intermittent suction. Denies passing any gas, but states she had a small bowel movemnt. Mepilex applied to both heels, as well as heel protectors and heels elevated above the bed to prevent pressure. Son states that she is scheduled for revascularization surgery in 2 months for peripheral vascular disease of both legs.
--- NOTE | 2018-09-14 11:07 | NUR ---
Fleets enema was given. Pt eliminated a large amount of gas and small amount of liquid stool. States she was not able to hold the enema in while lying on her side.
--- NOTE | 2018-09-14 11:11 | NUR ---
Call to the help desk to request resolution to hand held scanner attached to screen in room. Screen and keyboard functioning, but scanner is not.
--- NOTE | 2018-09-14 15:14 | NUR ---
the pt states that she has not been passing any gas, except for what she passed when the Fleets enema was given this morning. She has had very small loose brown bowel movements, about 4 total, so far today. States her abdomen is still sore and distended. NGT is evacuating small amounts of light green to yellow liquid.
[2018-09-14 15:18] LABS: Source, Urine Catheter
[2018-09-14 15:20] LABS: Bilirubin, Urine Neg (Neg); Blood, Urine 5+ (Neg); Glucose Qualitative, Urine Neg (Neg); Ketones, Urine 1+ (Neg); Leukocyte Esterase, Urine 2+ (Neg); Nitrite, Urine Neg (Neg); Protein, Urine 3+ (Neg); Specific Gravity, Urine 1.015 (1.003-1.022); Urobilinogen, Urine NORM (Normal)
[2018-09-14 15:27] LABS: Appearance, Urine Hazy (Clear); Color, Urine Yellow (P-Yellow)
[2018-09-14 15:28] LABS: Red Blood Cells, Urine TNTC /hpf (0-2); Squamous Epithelial Cells Few /hpf (Few); Transitional Epithelial Cells Few /hpf (0-Rare); White Blood Cells, Urine TNTC /hpf (0-5)
[2018-09-14 15:29] LABS: Bacteria Mod /hpf
--- NOTE | 2018-09-14 19:25 | NUR ---
The pt has been incontinent of several loose/liquid brown stools, the last one this evening medium-sized. Her abdomen is softer than it was this morning, but still distended. She states that she is feeling much better than yesterday. She remains NPO, except for the medications afterwhich the NGT to suction is paused for an hour to allow for absorbtion of the medications. Farrell catheter was replaced with a silicon catheter brought by the family from home. Urine is now yellow, without any black sediment as noted this morning.
[2018-09-15 04:13] LABS: BASOPHILS ABSOLUTE AUTO 0.06 K/mm3 (0.00-0.23); BASOPHILS PERCENT AUTO 0 % (0-2); EOSINOPHILS ABSOLUTE AUTO 0.31 K/mm3 (0.00-0.68); EOSINOPHILS PERCENT AUTO 2 % (0-6); Hematocrit 37.8 % (33.0-51.0); Hemoglobin 11.8 g/dL (11.5-16.0); IMMATURE GRAN ABSOLUTE AUTO 0.06 K/mm3 (0.00-0.10); IMMATURE GRAN PERCENT AUTO 0 % (0-1); LYMPHOCYTES ABSOLUTE AUTO 3.67 K/mm3 (0.84-5.20); LYMPHOCYTES PERCENT AUTO 25 % (21-46); MONOCYTES ABSOLUTE AUTO 1.22 K/mm3 (0.16-1.47); MONOCYTES PERCENT AUTO 8 % (4-13); Mean Corpuscular HGB 29.5 pg (26.0-34.0); Mean Corpuscular HGB Conc 31.2 g/dL (31.5-36.5); Mean Corpuscular Volume 95 fL (80-100); Mean Platelet Volume 9.4 fL (9.1-12.4); NEUTROPHILS ABSOLUTE AUTO 9.33 K/mm3 (1.96-9.15); NEUTROPHILS PERCENT AUTO 64 % (41-73); Platelet Count 281 K/mm3 (150-400); RDW Coefficient Variation 14.4 % (11.7-14.2); RDW Standard Deviation 50.2 fL (35.1-46.3); White Blood Cell Count 14.65 K/mm3 (4.00-11.30)
[2018-09-15 04:46] LABS: Alanine Aminotransfer (ALT/SGP 19 U/L (12-78); Albumin, Blood 2.7 g/dL (3.4-5.0); Albumin/Globulin Ratio 0.8 (0.8-1.8); Alk Phos 56 U/L (50-136); Anion Gap 5 mmol/L (6-16); Aspartate Aminotrans (AST/SGOT 12 U/L (12-37); Bilirubin, Total 0.2 mg/dL (0.1-1.0); Blood Urea Nitrogen 18 mg/dL (8-24); Bun/Creatinine Ratio 19.9 (12.0-20.0); CO2, Blood 21 mmol/L (21-32); Chloride, Blood 118 mmol/L (98-108); Globulin, Blood 3.4 g/dL (2.2-4.0); Glomerular Filtration Rate >60 (60-); Glucose, Blood 144 mg/dL (70-99); Potassium, Blood 3.4 mmol/L (3.5-5.5); Sodium, Blood 144 mmol/L (136-145); Total Protein, Blood 6.1 g/dL (6.4-8.2)
--- NOTE | 2018-09-15 07:17 | NUR ---
Bedside report from Gina Charles RN. The pt appears to be sleeping. Her son is at the bedside with a pet dog from home.
--- NOTE | 2018-09-15 14:36 | NUR ---
Soap suds enema was given, 5 hours after the fleets enema was administered this morning. The pt had a small liquid bowel movement just before the enema was delivered.
--- NOTE | 2018-09-15 15:31 | NUR ---
The pt was assisted to a recliner chair with use of the ceiling lift. She states she feels much better sitting up like that.
--- NOTE | 2018-09-15 17:17 | NUR ---
Urine noted leaking around the catheter into the pt's attends. Farrell was flushed using sterile techique, with immediate flow of urine, clear with red spots of sediment. Pt was sitting up in the chair for at least an hour, and worked with physical therapy, and at this time was assisted back to bed. She had another bowel movement on the bedpan.
--- NOTE | 2018-09-15 18:34 | NUR ---
Dr. Little was here and saw the patient. Telephone report was given, and the pt will be transferred to room 306 on the medical floor.
--- NOTE | 2018-09-15 18:42 | NUR ---
SUMMARY The pt was seen by Dr. Brito this morning, as well as Dr. Little this evening. She has had 4 bowel movements today, one very large, and all pudding consistency, brown. She remains NPO with the NGT in, and has had small amount of green colored liquid out today. She is very hopeful that the NGT can be taken out soon. She states that her abdomen feels much better, but it is still distended and somewhat firm in the lower quadrants, but softer than it was yesterday. Two bowel tones were auscultated over a period of about 5 minutes. Ceiling lift was used to move the pt to the chair today, where she sat for 1.5 hours and also worked with physical therapy during that time. Urine is yellow, with red sediment. It requires flushing at times, which the family who are also her caregivers, state that this is routine at home in order to clear the sediment which blocks it. The cheatham is chronic. Swelling noted in her arms, hands, legs. Also noted that she had a 2 kg weight gain over 2 days. She is 1 liter fluid positive on her intake and output balance. Requires turning q 2 hours, and she is incontinent of stool, but occasionally was able to use the bedpan continently.
--- NOTE | 2018-09-15 22:05 | NUR ---
PT ARRIVED TO [facility] FLOOR @ 1931 VIA BED. LIFT TRANSFER TO UNIT BED. ORIENTED TO UNIT, CALL LT. NG TUBE PATENT, LOW INTERMITTENT SUCTIONING. SOAP SUDS ENEMA ORDERED Q6H, LAST AT 2100 BY THIS RN. ABDOMEN FIRM AND DISTENDED. PT DENIES ANY PAIN OR DISCOMFORT.
[2018-09-16 04:42] LABS: BASOPHILS ABSOLUTE AUTO 0.04 K/mm3 (0.00-0.23); BASOPHILS PERCENT AUTO 0 % (0-2); EOSINOPHILS ABSOLUTE AUTO 0.38 K/mm3 (0.00-0.68); EOSINOPHILS PERCENT AUTO 4 % (0-6); Hematocrit 34.5 % (33.0-51.0); Hemoglobin 11.2 g/dL (11.5-16.0); IMMATURE GRAN ABSOLUTE AUTO 0.03 K/mm3 (0.00-0.10); IMMATURE GRAN PERCENT AUTO 0 % (0-1); LYMPHOCYTES ABSOLUTE AUTO 3.84 K/mm3 (0.84-5.20); LYMPHOCYTES PERCENT AUTO 35 % (21-46); MONOCYTES ABSOLUTE AUTO 0.89 K/mm3 (0.16-1.47); MONOCYTES PERCENT AUTO 8 % (4-13); Mean Corpuscular HGB 30.6 pg (26.0-34.0); Mean Corpuscular HGB Conc 32.5 g/dL (31.5-36.5); Mean Corpuscular Volume 94 fL (80-100); Mean Platelet Volume 9.6 fL (9.1-12.4); NEUTROPHILS ABSOLUTE AUTO 5.66 K/mm3 (1.96-9.15); NEUTROPHILS PERCENT AUTO 52 % (41-73); Platelet Count 256 K/mm3 (150-400); RDW Coefficient Variation 14.4 % (11.7-14.2); Red Blood Cell Count 3.66 M/mm3 (3.80-5.20); White Blood Cell Count 10.84 K/mm3 (4.00-11.30)
--- NOTE | 2018-09-16 04:52 | NUR ---
SOAP SUDS ENEMA ADMINISTERED AT THIS TIME.
[2018-09-16 05:05] LABS: Alanine Aminotransfer (ALT/SGP 21 U/L (12-78); Albumin, Blood 2.5 g/dL (3.4-5.0); Albumin/Globulin Ratio 0.8 (0.8-1.8); Alk Phos 53 U/L (50-136); Anion Gap 8 mmol/L (6-16); Aspartate Aminotrans (AST/SGOT 21 U/L (12-37); Bilirubin, Total 0.2 mg/dL (0.1-1.0); Blood Urea Nitrogen 14 mg/dL (8-24); CO2, Blood 20 mmol/L (21-32); Calcium, Blood 7.7 mg/dL (8.5-10.1); Chloride, Blood 119 mmol/L (98-108); Creatinine, Blood 0.82 mg/dL (0.40-1.00); Globulin, Blood 3.1 g/dL (2.2-4.0); Glomerular Filtration Rate >60 (60-); Glucose, Blood 105 mg/dL (70-99); Potassium, Blood 2.8 mmol/L (3.5-5.5); Sodium, Blood 147 mmol/L (136-145); Total Protein, Blood 5.6 g/dL (6.4-8.2)
--- NOTE | 2018-09-16 06:23 | NUR ---
SHIFT SUMMARY: PT TRANSFER FROM PCU AT START OF SHIFT, ADMITTED FOR UROSEPSIS. PT HAS CHRONIC INDWELLING CATHETER. PT IS A&O X 4, LIFT TO TRANSFER. PT REPORTS BEING BEDRIDDEN X2 MONTHS. L SIDE WEAKNESS D/T HX OF CVA. TELE IN PLACE, NSR c BBB @ 85 BPM. PACEMAKER TO L CHEST WALL. RESP E/U ON RA, LS CLEAR. SOAP SPUDS ENEMA ORDERED Q6, ADMINSITERED WITHOUT DIFFICULTIES. PT HAS LIQUID BROWN STOOL AFTER EACH ENEMA. NG TUBE IS PATENT, SETTINGS OF LOW INTERMITTENT SUCTION. NPO, BESIDES TO TAKE MEDS WHOLE c APPLESAUCE. PRESSURE ULCER TO COCCYX IS INDUSTRIAL RELATIONS REPRESENTATIVE D/T LIQUID STOOL, Q2H TURNS IMPLEMENTED. HEEL PROTECTORS TO BILAT HEELS. PT DENIES ANY PAIN OR DISCOMFORT. ABX ADMINISTERED PER EMAR. NS c 20 MEQ KCL RUNNING AT 75 ML/HR. NO OTHER CHANGES TO REPORT. WILL CONT TO MONITOR AND PROVIDE CARE UNTIL PRESUMED BY ONCOMING RN.
--- NOTE | 2018-09-17 03:39 | NUR ---
NOC SHIFT SUMMARY PT IS PLEASANT AND COOPERATIVE WITH CARE. AAOX4. RESP EVEN AND UNLABORED. BLOOD SUGARS [id number] HAVE NOT REQUIRED INSULIN. CONSTIPATOIN HAS RESOLVED AND PT HAS HAD LIQUID STOOLS AFTER RECIEVING ENEMAS AND BOWEL AIDS ON PRIOR SHIFTS. HAS BEEN TURNED THROUGHOUT THE NIGHT. VSS. RECIEVING FLUIDS WITH POTASSIUM AT 75ML PER HOUR. TELE ON AND PRESENTLY SHOWS SR WITH BBB RATE 76 PER CYLINDER PRESS OPERATOR HELPER. APPEARS TO BE SLEEPING AND IN NO ACUTE DISTRESS AT THIS TIME WILL CONTINUE TO MONITOR.
[2018-09-17 05:22] LABS: BASOPHILS ABSOLUTE AUTO 0.03 K/mm3 (0.00-0.23); BASOPHILS PERCENT AUTO 0 % (0-2); EOSINOPHILS ABSOLUTE AUTO 0.45 K/mm3 (0.00-0.68); EOSINOPHILS PERCENT AUTO 4 % (0-6); Hematocrit 36.5 % (33.0-51.0); Hemoglobin 11.6 g/dL (11.5-16.0); IMMATURE GRAN ABSOLUTE AUTO 0.03 K/mm3 (0.00-0.10); IMMATURE GRAN PERCENT AUTO 0 % (0-1); LYMPHOCYTES ABSOLUTE AUTO 4.15 K/mm3 (0.84-5.20); LYMPHOCYTES PERCENT AUTO 37 % (21-46); MONOCYTES ABSOLUTE AUTO 0.96 K/mm3 (0.16-1.47); MONOCYTES PERCENT AUTO 9 % (4-13); Mean Corpuscular HGB 30.1 pg (26.0-34.0); Mean Corpuscular HGB Conc 31.8 g/dL (31.5-36.5); Mean Corpuscular Volume 95 fL (80-100); Mean Platelet Volume 9.7 fL (9.1-12.4); NEUTROPHILS ABSOLUTE AUTO 5.48 K/mm3 (1.96-9.15); NEUTROPHILS PERCENT AUTO 49 % (41-73); Platelet Count 275 K/mm3 (150-400); RDW Coefficient Variation 14.3 % (11.7-14.2); RDW Standard Deviation 49.6 fL (35.1-46.3); Red Blood Cell Count 3.86 M/mm3 (3.80-5.20)
[2018-09-17 05:51] LABS: Alanine Aminotransfer (ALT/SGP 22 U/L (12-78); Albumin, Blood 2.5 g/dL (3.4-5.0); Albumin/Globulin Ratio 0.8 (0.8-1.8); Alk Phos 52 U/L (50-136); Anion Gap 10 mmol/L (6-16); Aspartate Aminotrans (AST/SGOT 16 U/L (12-37); Bilirubin, Total 0.2 mg/dL (0.1-1.0); Blood Urea Nitrogen 8 mg/dL (8-24); Bun/Creatinine Ratio 10.3 (12.0-20.0); CO2, Blood 20 mmol/L (21-32); Calcium, Blood 7.8 mg/dL (8.5-10.1); Chloride, Blood 117 mmol/L (98-108); Creatinine, Blood 0.77 mg/dL (0.40-1.00); Globulin, Blood 3.2 g/dL (2.2-4.0); Glomerular Filtration Rate >60 (60-); Glucose, Blood 128 mg/dL (70-99); Magnesium, Blood 1.6 mg/dL (1.6-2.4); Phosphorus, Blood 2.3 mg/dL (2.5-4.9); Potassium, Blood 2.7 mmol/L (3.5-5.5); Sodium, Blood 147 mmol/L (136-145); Total Protein, Blood 5.7 g/dL (6.4-8.2)
--- NOTE | 2018-09-18 03:03 | NUR ---
SHIFT SUMMARY NO ACUTE CHANGES OVERNIGHT. PT. A&O, BED BOUND. SABILLON CATHER IN PLACE AND DRAINING WELL. DARK RED URINE NOTED IN BAG. PT. HAD 1 LOOSE BM TONIGHT. REPOSITIONED Q2HRS AND HEEL PROTECTORS IN PLACE. ASLEEP IN BED T/O THE SHIFT. IV FLUIDS RUNNING. DENIED ANY NEEDS T/O THE NIGHT AND NO C/O PAIN OR DISCOMFORT. PT. AWAITING TO BE D/C'D TO [facility]. CALL LIGHT WITHIN REACH AND SIDE RAILS UP X2. WILL CONT TO MONITOR.
[2018-09-18 05:19] LABS: Albumin, Blood 2.6 g/dL (3.4-5.0); Anion Gap 8 mmol/L (6-16); Blood Urea Nitrogen 6 mg/dL (8-24); Bun/Creatinine Ratio 7.7 (12.0-20.0); CO2, Blood 19 mmol/L (21-32); Calcium, Blood 8.4 mg/dL (8.5-10.1); Chloride, Blood 119 mmol/L (98-108); Creatinine, Blood 0.78 mg/dL (0.40-1.00); Glomerular Filtration Rate >60 (60-); Glucose, Blood 135 mg/dL (70-99); Phosphorus, Blood 2.6 mg/dL (2.5-4.9); Potassium, Blood 3.4 mmol/L (3.5-5.5); Sodium, Blood 146 mmol/L (136-145)
--- NOTE | 2018-09-18 18:57 | NUR ---
SHIFT SUMMARY FAMILY WITH PT TODAY ON AND OFF AND ASSISTED WITH HER MEALS. SON STATED SHE USUALLY USES A BUILT UP UTENSIL. WASHCLOTH AND KOBAN PLACED ON UTENSILS AND PT REPORTED IT MADE IT EASIER TO HER TO FEED HERSELF. SLEEPING THIS AFTERNOON. HAD 2 STOOLS TODAY THAT WERE LOOSE. TOLERATED ADVANCEMENT OF FOOD AND DENIED ANY NAUSEA WITH SOFT BITE SIZE FOOD.
--- NOTE | 2018-09-19 04:14 | NUR ---
SHIFT SUMMARY- PT. ASLEEP T/O THE NIGHT, NO APPARENT DISTRESS NOTED. DENIED ANY PAIN OR DISCOMFORT. SABILLON REMAINS IN PLACE AND DRAINING WELL. PT. HAD 2 LIQUID BM'S THIS EVENING. REPOSITIONED Q2HRS. CALL LIGHT WITHIN REACH AND SIDE RAILS UP X2. WILL CONT TO MONITOR.
[2018-09-19 05:40] LABS: BASOPHILS ABSOLUTE AUTO 0.04 K/mm3 (0.00-0.23); BASOPHILS PERCENT AUTO 0 % (0-2); EOSINOPHILS ABSOLUTE AUTO 0.35 K/mm3 (0.00-0.68); EOSINOPHILS PERCENT AUTO 3 % (0-6); Hemoglobin 12.3 g/dL (11.5-16.0); IMMATURE GRAN ABSOLUTE AUTO 0.05 K/mm3 (0.00-0.10); IMMATURE GRAN PERCENT AUTO 1 % (0-1); LYMPHOCYTES PERCENT AUTO 41 % (21-46); MONOCYTES ABSOLUTE AUTO 0.93 K/mm3 (0.16-1.47); MONOCYTES PERCENT AUTO 9 % (4-13); Mean Corpuscular HGB 30.6 pg (26.0-34.0); Mean Corpuscular HGB Conc 31.5 g/dL (31.5-36.5); Mean Corpuscular Volume 97 fL (80-100); Mean Platelet Volume 9.8 fL (9.1-12.4); NEUTROPHILS ABSOLUTE AUTO 4.99 K/mm3 (1.96-9.15); NEUTROPHILS PERCENT AUTO 46 % (41-73); Platelet Count 280 K/mm3 (150-400); RDW Coefficient Variation 14.3 % (11.7-14.2); RDW Standard Deviation 50.7 fL (35.1-46.3); Red Blood Cell Count 4.02 M/mm3 (3.80-5.20); White Blood Cell Count 10.86 K/mm3 (4.00-11.30)
[2018-09-19 05:56] LABS: Anion Gap 8 mmol/L (6-16); Blood Urea Nitrogen 11 mg/dL (8-24); Bun/Creatinine Ratio 12.6 (12.0-20.0); CO2, Blood 20 mmol/L (21-32); Calcium, Blood 8.6 mg/dL (8.5-10.1); Chloride, Blood 119 mmol/L (98-108); Creatinine, Blood 0.88 mg/dL (0.40-1.00); Glomerular Filtration Rate >60 (60-); Glucose, Blood 129 mg/dL (70-99); Potassium, Blood 3.6 mmol/L (3.5-5.5); Sodium, Blood 147 mmol/L (136-145)
--- NOTE | 2018-09-19 10:20 | NUR ---
PT CONT TO HAVE LARGE AMOUNTS OF LIQUID STOOL WITH VERY NOTICBLE ODOR THAT IS OF CONCERN, PT HAS KNOWN OLGIVIES SYNDROME AND WAS RECEIVING LARGE AMOUNTS OF LAXATIVES. PER DR Devan UMANZOR NO NEED TO SEND STOOL AT THIS TIME WILL JUST KEEP AN EYE ON IT NOW THAT LAXATIVES ARE BEING HELD.
--- NOTE | 2018-09-19 14:41 | NUR ---
PT NOTED TO HAVE A NOTE DICTATED BY DR REED THIS AM STATING SHE WAS READY FOR DISCHARGE, I CALLED AND SPOKE WITH DR REED NOTIFYING HER THAT THERE IS A BED AT [facility] AND PT AND FAMILY OK WITH DISCHARGE. PT HAS HAD [address] LI[address] TODAY HOWEVER [address] REED STATES THAT IS ACTUALLY AN IMPROVEMENT. PER DR REED SHE WILL PLACE D/C ORDERS TO SNF. [facility] NOTIFIED.
[2018-09-19] MEDS ORDERED: ACET325 PO (15:24)
[2018-09-19] MEDS ORDERED: CEFU500T30 PO (15:26)
[2018-09-19] MEDS ORDERED: Vsl#3 Capsule1 EACH PO (15:27)
[2018-09-19] MEDS ORDERED: HUMALOG KW200 UNIT/1 SC (15:27)
[2018-09-19] MEDS ORDERED: MIRALAX17 GM PO (15:28)
[2018-09-19] MEDS ORDERED: POTCHL20ER PO (15:28)
[2018-09-19] MEDS ORDERED: DOCU100 PO (15:28)
--- NOTE | 2018-09-19 17:41 | NUR ---
REPORT CALLED TO TIN AT [facility] AWAITING RIDE AT THIS TIME. IV DC'D INTACT.
--- NOTE | 2018-09-19 18:00 | NUR ---
PT DC'D TO [facility] VIA [facility]/C [facility] AT [id number].
== END 2018-09-19 17:58 | DRG 698 ==
LOC: ER 12:13 → PCU 19:25 → MEDS 19:25 → PCU 21:10 → MEDS 09-15 19:25
PROVIDERS: Family Medicine; Internal Medicine Gastroenterology; Nurse Practitioner Acute Care; Physician Assistant; Student in an Organized Health Care Education/Training Program; ADMIT Internal Medicine
PROC: 0D9670Z Drainage of Stomach with Drainage Device, Via Natural or Artificial Opening (ICD-10-PCS; principal; 2018-09-13)
DX: T83.511A Infection and inflammatory reaction due to indwelling urethral catheter, initial encounter (principal); A41.51 Sepsis due to Escherichia coli [E. coli]; A41.81 Sepsis due to Enterococcus; R65.20 Severe sepsis without septic shock; N25.81 Secondary hyperparathyroidism of renal origin; K56.699 Other intestinal obstruction unspecified as to partial versus complete obstruction; K56.7 Ileus, unspecified; N30.90 Cystitis, unspecified without hematuria; N18.3 Chronic kidney disease, stage 3 (moderate); I48.2 Chronic atrial fibrillation; I12.9 Hypertensive chronic kidney disease with stage 1 through stage 4 chronic kidney disease, or unspecified chronic kidney disease; E86.0 Dehydration; E11.610 Type 2 diabetes mellitus with diabetic neuropathic arthropathy; E87.6 Hypokalemia; E83.39 Other disorders of phosphorus metabolism; K21.9 Gastro-esophageal reflux disease without esophagitis; E78.5 Hyperlipidemia, unspecified; Z95.0 Presence of cardiac pacemaker; Z79.4 Long term (current) use of insulin; Z91.040 Latex allergy status; Z88.8 Allergy status to other drugs, medicaments and biological substances; Z91.018 Allergy to other foods; Z79.01 Long term (current) use of anticoagulants; Z79.84 Long term (current) use of oral hypoglycemic drugs; Z79.899 Other long term (current) drug therapy; Z86.73 Personal history of transient ischemic attack (TIA), and cerebral infarction without residual deficits; Z86.14 Personal history of Methicillin resistant Staphylococcus aureus infection; Z87.440 Personal history of urinary (tract) infections
CPT/HCPCS: 36415; 71045; 74018; 74176; 80048; 80053; 80069; 81001; 82550; 82947; 83605; 83690; 83735; 83880; 84100; 84132; 85025; 85027; 87040; 87077; 87086; 87186; 96361; 96365; 96367; 97110; 97162; 97530; 99285-25; A9270; J0696; J0744; J3475; J3480; J7030

== ENCOUNTER 2018-10-09 07:33 | Day surgery (SDC) | payer MEDICARE, OTHER ==
[~2018-10-09 07:33] MED LIST changes: +ASCO500 PO; +CEFU500T30 PO; +CHOL10002 PO; +ESTRADIOL 0.1 MG/GM VAG; +FISH OIL 1,0001 EAC1 PO; +Fosamax70 MG PO; +HUMALOG KW200 UNIT/1 SC; +KETO15TC TOP; +METF500 PO; +METO100ER PO; +MIRALAX17 GM PO; +MYRBETRIQ50 MG PO; +NITR100CA PO; +Nyamyc15 GM TOP; +Sulfamethoxazo1 EAC1 PO; +THERA1 EACH PO; +Ultram50 MG PO; +Vsl#3 Capsule1 EACH PO; +XARELTO PO; +XARELTO15 MG PO
== END 2018-10-09 22:43 | disposition home or self-care (01) ==
LOC: WOUND 07:33
DX: E11.621 Type 2 diabetes mellitus with foot ulcer (principal); L97.429 Non-pressure chronic ulcer of left heel and midfoot with unspecified severity; L97.529 Non-pressure chronic ulcer of other part of left foot with unspecified severity; L97.519 Non-pressure chronic ulcer of other part of right foot with unspecified severity; E11.51 Type 2 diabetes mellitus with diabetic peripheral angiopathy without gangrene; I73.9 Peripheral vascular disease, unspecified; I10 Essential (primary) hypertension; E78.5 Hyperlipidemia, unspecified; Z91.040 Latex allergy status; Z91.018 Allergy to other foods; Z91.048 Other nonmedicinal substance allergy status; Z88.8 Allergy status to other drugs, medicaments and biological substances
CPT/HCPCS: G0463

== ENCOUNTER 2018-10-19 07:30 | Day surgery (SDC) | payer MEDICARE, OTHER | END 2018-10-19 22:39 | disposition home or self-care (01) | LOC: WOUND 07:30 | DX: E11.621 Type 2 diabetes mellitus with foot ulcer (principal); L97.421 Non-pressure chronic ulcer of left heel and midfoot limited to breakdown of skin; I10 Essential (primary) hypertension; E78.5 Hyperlipidemia, unspecified; Z85.528 Personal history of other malignant neoplasm of kidney; Z87.19 Personal history of other diseases of the digestive system | CPT/HCPCS: G0463 ==

== ENCOUNTER → 2018-11-09 | Outpatient (CLI) | payer MEDICARE, OTHER ==
[2018-11-09 14:28] LABS: Creatinine Urine 34.6 mg/dL (27.00-270.00); Protein, Urine Quantitative 63.9 mg/dL (0.0-11.9)
== END | disposition home or self-care (01) ==
LOC: LAB 11-08 11:15 → LAB SHORT 11-08 11:15 → LAB 11:15
PROVIDERS: Internal Medicine
DX: N18.3 Chronic kidney disease, stage 3 (moderate) (principal)
CPT/HCPCS: 81050; 82570; 84156

== ENCOUNTER 2018-11-15 06:20 | Day surgery (SDC) | payer MEDICARE, OTHER ==
[~2018-11-15] VITALS: Ht 167.6 cm; Wt 82.0 kg
[2018-11-15 08:14] LABS: BASOPHILS ABSOLUTE AUTO 0.03 K/mm3 (0.00-0.23); BASOPHILS PERCENT AUTO 0 % (0-2); EOSINOPHILS ABSOLUTE AUTO 0.17 K/mm3 (0.00-0.68); EOSINOPHILS PERCENT AUTO 2 % (0-6); Hematocrit 40.7 % (33.0-51.0); Hemoglobin 12.6 g/dL (11.5-16.0); IMMATURE GRAN ABSOLUTE AUTO 0.04 K/mm3 (0.00-0.10); IMMATURE GRAN PERCENT AUTO 0 % (0-1); LYMPHOCYTES ABSOLUTE AUTO 4.36 K/mm3 (0.84-5.20); LYMPHOCYTES PERCENT AUTO 39 % (21-46); MONOCYTES ABSOLUTE AUTO 0.95 K/mm3 (0.16-1.47); MONOCYTES PERCENT AUTO 9 % (4-13); Mean Corpuscular Volume 94 fL (80-100); Mean Platelet Volume 9.3 fL (9.1-12.4); NEUTROPHILS ABSOLUTE AUTO 5.58 K/mm3 (1.96-9.15); NEUTROPHILS PERCENT AUTO 50 % (41-73); Platelet Count 303 K/mm3 (150-400); RDW Coefficient Variation 14.6 % (11.7-14.2); RDW Standard Deviation 49.8 fL (35.1-46.3); Red Blood Cell Count 4.35 M/mm3 (3.80-5.20); White Blood Cell Count 11.13 K/mm3 (4.00-11.30)
[2018-11-15 08:54] LABS: Bun/Creatinine Ratio 14.3 (12.0-20.0); Calcium, Blood 9.7 mg/dL (8.5-10.1); Creatinine, Blood 1.05 mg/dL (0.40-1.00); Potassium, Blood 4.5 mmol/L (3.5-5.5)
--- NOTE | 2018-11-15 12:18 | NUR ---
PT TO RECOVERY POST PROCEDURE. PT IS AWAKE, ALERT AND ORIENTED. PT'S FACE IS FLUSHED, BUT REPORTS THIS IS NOT UNUSUAL FOR HER; DENIES FEELING SOB. PT DENIES PAIN OR DISCOMFORT. MONITOR STACH 100'S, B/P 178/84, SPO2 97% RA. R GROIN SITE, NO SWELLING/HEMATOMA, TEGADERM DRSG INTACT; RLE PULSES 1+.
--- NOTE | 2018-11-15 14:40 | NUR ---
PT'S B/P 170-180'S/, HR STACH 100'S; PT ASYMPTOMATIC. DR MASON NOTIFIED, ORDERS RECEIVED; ADMINISTERED PT'S HOME B/P MED (METOPROLOL XL 100MG).
--- NOTE | 2018-11-15 15:53 | NUR ---
PT'S B/P AND HR REMAIN ELEVATED, PT ASYMPTOMATIC. DR MASON NOTFIFIED; ORDERS RECEIVED; ADMINISTERED 5MG IV HYDRALAZINE.
--- NOTE | 2018-11-15 16:22 | NUR ---
DR MASON HERE TO EVALUATE PT, PT'S HR REMAINS ELEVATED, BUT B/P IMPROVED AFTER HYDRALAZINE; R GROIN SITE REMAINS SOFT WITHOUT SWELLING. PT OK TO DISCHARGE PER DR MASON.
--- NOTE | 2018-11-15 16:45 | NUR ---
PT, SON AND DAUGHTER REVEIVED DISCHARGE INSTRUCTIONS, MED LIST AND SUPPLENTAL EDUCATIONAL RESOURCES; VERBALIZED GOOD UNDERSTANDING. PT WAS TOTAL ASSIST GETTING DRESSED AND ASSISTING TO W/C.
--- NOTE | 2018-11-15 16:50 | NUR ---
PT'S IV REMOVED-CANNULA INTACT. PT LEFT FACILITY WITH SON AND DAUGHTER VIA W/C, CONDITION STABLE.
== END 2018-11-15 22:40 | disposition home or self-care (01) ==
LOC: MHTC 06:20
PROVIDERS: Radiology Diagnostic Radiology
DX: E11.51 Type 2 diabetes mellitus with diabetic peripheral angiopathy without gangrene (principal); E11.621 Type 2 diabetes mellitus with foot ulcer; I70.244 Atherosclerosis of native arteries of left leg with ulceration of heel and midfoot; L97.429 Non-pressure chronic ulcer of left heel and midfoot with unspecified severity; I70.1 Atherosclerosis of renal artery; Z88.8 Allergy status to other drugs, medicaments and biological substances; Z91.048 Other nonmedicinal substance allergy status; Z91.040 Latex allergy status; Z79.899 Other long term (current) drug therapy; Z79.84 Long term (current) use of oral hypoglycemic drugs; Z91.09 Other allergy status, other than to drugs and biological substances; Z91.018 Allergy to other foods
CPT/HCPCS: 37228; 75625; 75716; 75774; 80048; 82947; 85025; 99152; 99153; C1725; C1760; C1769; C1887; C1894; J0360; J1200; J1644; J1720; J2250; J3010; J7030; Q9967

== ENCOUNTER → 2019-03-30 | Outpatient (CLI) | payer MEDICARE, OTHER | LOC: LAB EV 10:20 → LAB SHORT 10:20 | DX: N30.00 Acute cystitis without hematuria (principal) | CPT/HCPCS: 87086 ==

== ENCOUNTER → 2019-10-12 | Outpatient (CLI) | payer MEDICARE | LOC: LAB SHORT 10:29 → LAB 10:29 | DX: L08.9 Local infection of the skin and subcutaneous tissue, unspecified (principal); T23.112A Burn of first degree of left thumb (nail), initial encounter; D48.5 Neoplasm of uncertain behavior of skin; I87.2 Venous insufficiency (chronic) (peripheral); R60.0 Localized edema | CPT/HCPCS: 87070; 87205 ==

== ENCOUNTER 2020-01-01 03:51 | Observation (INO) | payer MEDICARE ==
[~2020-01-01] VITALS: Ht 165.1 cm; Wt 82.5 kg
[2020-01-01] MEDS ORDERED: TORS10 (04:29)
[2020-01-01 04:56] LABS: BASOPHILS ABSOLUTE AUTO 0.04 K/mm3 (0.00-0.23); BASOPHILS PERCENT AUTO 0 % (0-2); EOSINOPHILS ABSOLUTE AUTO 0.24 K/mm3 (0.00-0.68); EOSINOPHILS PERCENT AUTO 2 % (0-6); Hematocrit 37.7 % (33.0-51.0); Hemoglobin 11.9 g/dL (11.5-16.0); IMMATURE GRAN ABSOLUTE AUTO 0.05 K/mm3 (0.00-0.10); IMMATURE GRAN PERCENT AUTO 1 % (0-1); LYMPHOCYTES ABSOLUTE AUTO 2.73 K/mm3 (0.84-5.20); LYMPHOCYTES PERCENT AUTO 26 % (21-46); MONOCYTES ABSOLUTE AUTO 1.29 K/mm3 (0.16-1.47); MONOCYTES PERCENT AUTO 12 % (4-13); Mean Corpuscular HGB 30.7 pg (26.0-34.0); Mean Corpuscular HGB Conc 31.6 g/dL (31.5-36.5); Mean Corpuscular Volume 97 fL (80-100); Mean Platelet Volume 9.8 fL (9.1-12.4); NEUTROPHILS ABSOLUTE AUTO 6.22 K/mm3 (1.96-9.15); NEUTROPHILS PERCENT AUTO 59 % (41-73); Platelet Count 299 K/mm3 (150-400); RDW Coefficient Variation 14.6 % (11.7-14.2); RDW Standard Deviation 52.6 fL (35.1-46.3); Red Blood Cell Count 3.87 M/mm3 (3.80-5.20); White Blood Cell Count 10.57 K/mm3 (4.00-11.30)
[2020-01-01 05:10] LABS: Alanine Aminotransfer (ALT/SGP 26 U/L (12-78); Albumin, Blood 2.7 g/dL (3.4-5.0); Albumin/Globulin Ratio 0.6 (0.8-1.8); Alk Phos 73 U/L (50-136); Anion Gap 6 mmol/L (6-16); Aspartate Aminotrans (AST/SGOT 17 U/L (12-37); Bilirubin, Total 0.3 mg/dL (0.1-1.0); Blood Urea Nitrogen 21 mg/dL (8-24); CO2, Blood 27 mmol/L (21-32); Calcium, Blood 9.4 mg/dL (8.5-10.1); Chloride, Blood 104 mmol/L (98-108); Creatinine, Blood 1.05 mg/dL (0.40-1.00); Globulin, Blood 4.5 g/dL (2.2-4.0); Glomerular Filtration Rate 53 (60-); Glucose, Blood 243 mg/dL (70-99); Potassium, Blood 3.7 mmol/L (3.5-5.5); Sodium, Blood 137 mmol/L (136-145); Total Protein, Blood 7.2 g/dL (6.4-8.2); Troponin I <0.015 ng/mL (0.000-0.040)
[2020-01-01 06:22] LABS: Adenovirus Not Detected (NOT DETECT); Bordetella pertussis Not Detected (NOT DETECT); Chlamydophila pneumoniae Not Detected (NOT DETECT); Coronavirus 229E Not Detected (NOT DETECT); Coronavirus HKU1 Not Detected (NOT DETECT); Coronavirus NL63 Not Detected (NOT DETECT); Coronavirus OC43 Not Detected (NOT DETECT); Human Metapneumovirus Not Detected (NOT DETECT); Human Rhinovirus/Enterovirus Not Detected (NOT DETECT); Influenza A/2009-H1 Not Detected (NOT DETECT); Influenza A/H1 Not Detected (NOT DETECT); Influenza A/H3 Not Detected (NOT DETECT); Influenza B Not Detected (NOT DETECT); Mycoplasma pneumoniae Not Detected (NOT DETECT); Parainfluenza Virus 1 Not Detected (NOT DETECT); Parainfluenza Virus 2 Not Detected (NOT DETECT); Parainfluenza Virus 3 Not Detected (NOT DETECT); Parainfluenza Virus 4 Not Detected (NOT DETECT); Respiratory Syncytial Virus Not Detected (NOT DETECT); SARS-Cov-2 (COVID-19), BioFire Not Detected (NOT DETECT)
[2020-01-01 11:19] LABS: Source, Urine Catheter
--- NOTE | 2020-01-01 11:21 | NUR ---
HOME SABILLON CATHETER DC'D AT ABOUT 10:50 AND NEW SABILLON PLACED. UA COLLECTED AND SENT.
[2020-01-01 11:28] LABS: Bilirubin, Urine Neg (Neg); Blood, Urine 4+ (Neg); Glucose Qualitative, Urine 2+ (Neg); Ketones, Urine 1+ (Neg); Leukocyte Esterase, Urine 3+ (Neg); Nitrite, Urine Pos (Neg); Protein, Urine 3+ (Neg); Specific Gravity, Urine 1.015 (1.003-1.022); Urobilinogen, Urine NORM (Normal)
[2020-01-01 11:52] LABS: Appearance, Urine Cloudy (Clear); Color, Urine Yellow (P-Yellow)
[2020-01-01 11:54] LABS: Red Blood Cells, Urine TNTC /hpf (0-2); White Blood Cells, Urine TNTC /hpf (0-5)
[2020-01-01 11:55] LABS: Bacteria Many /hpf; Squamous Epithelial Cells Few /hpf (Few); Transitional Epithelial Cells Few /hpf (0-Rare)
--- NOTE | 2020-01-01 14:34 | NUR ---
ADMISSION: REPORT RECEIVED FROM ED RN. PT TO UNIT AT ABOUT 0720. UPON ASSESSMENT PT IS TOO WEAK TO WALK TO BED FROM [facility]. MOVED WITH SLIDER SHEET. VSS, PT A/O.HOME SABILLON PATENT AND DRAINING. PT APPEARS SOB WITH ACTIVITY, BUT RECOVERS EASILY . SP02 ABOVE 90% ON 1L 02. PT SAT UP RIGHT IN BED. WILL CTM.
--- NOTE | 2020-01-01 18:25 | NUR ---
SUMMARY: NO ACUTE CHANGE TODAY SINCE ADMISSION. PT IS A/O. NEEDS Q2 TURNING[address] DR[address] AGUILAR MADE AWARE OF PT GENERALIZED EDEMA, SABILLON AT ADMIT, AND PRESSURE ULCER AT COCCYX. PRESSURE ULCER NOW DRESSED WITH MEPILEX. PT HAD BM X2. HAS DENIED PAIN, SOB. ESTEFANYLTY ON 1L 02, SP02 IS 93%. INSTRUCTED ON I.S. USE. NO ACUTE SAFETY CONCERNS. VSS, TELE WNL. WILL CTM AND REPORT TO NOC EDDY.
--- NOTE | 2020-01-01 19:28 | NUR ---
ATTEMPTED TO CALL DR. ABREU'S OFFICE FOR NEW CONSULT AT ABOUT 1450, LEFT MESSAGE. AWAITING CALL BACK
--- NOTE | 2020-01-02 04:07 | NUR ---
SHIFT SUMMARY: PT A&O X4. O2 94% ON 1LO2 VIA NC. PT EDUCATED ON HOW TO USE INCENTIVE SPIROMETER. DEMONSTRATED USE. LUNGS CLEAR THROUGHOUT. DIMINISHED IN BASES. PT SOB WITH REPOSITIONING CAUSING O2 TO DROP TO UPPER 80'S. INCONTINENT OF STOOL. BM X2. SABILLON DRAINING CLOUDY YELLOW URINE. SEDIMENT NOTED IN TUBING. 2+ PITTING EDEMA TO BLE. LEGS ELEVATED ON PILLOWS. HEELS FLOATED. MEPILEX TO COCCYX C/D/I. NYSTATIN APPLIED TO SKIN FOLDS. SWELLING NOTED TO LABIA WITH A SCANT AMOUNT OF BLOOD D/T SKIN BREAKDOWN. SR IN 80'S PER CLOTH STOCK SORTER.
[2020-01-02 04:34] LABS: BASOPHILS ABSOLUTE AUTO 0.01 K/mm3 (0.00-0.23); BASOPHILS PERCENT AUTO 0 % (0-2); EOSINOPHILS PERCENT AUTO 0 % (0-6); Hematocrit 35.8 % (33.0-51.0); Hemoglobin 11.5 g/dL (11.5-16.0); IMMATURE GRAN ABSOLUTE AUTO 0.12 K/mm3 (0.00-0.10); IMMATURE GRAN PERCENT AUTO 1 % (0-1); LYMPHOCYTES PERCENT AUTO 20 % (21-46); MONOCYTES ABSOLUTE AUTO 0.43 K/mm3 (0.16-1.47); MONOCYTES PERCENT AUTO 4 % (4-13); Mean Corpuscular HGB 30.6 pg (26.0-34.0); Mean Corpuscular HGB Conc 32.1 g/dL (31.5-36.5); Mean Corpuscular Volume 95 fL (80-100); Mean Platelet Volume 9.5 fL (9.1-12.4); NEUTROPHILS PERCENT AUTO 75 % (41-73); Platelet Count 293 K/mm3 (150-400); RDW Coefficient Variation 14.3 % (11.7-14.2); RDW Standard Deviation 49.9 fL (35.1-46.3); Red Blood Cell Count 3.76 M/mm3 (3.80-5.20); White Blood Cell Count 11.46 K/mm3 (4.00-11.30)
[2020-01-02 04:59] LABS: Alanine Aminotransfer (ALT/SGP 29 U/L (12-78); Albumin, Blood 2.7 g/dL (3.4-5.0); Albumin/Globulin Ratio 0.6 (0.8-1.8); Alk Phos 67 U/L (50-136); Anion Gap 6 mmol/L (6-16); Aspartate Aminotrans (AST/SGOT 18 U/L (12-37); Bilirubin, Total 0.2 mg/dL (0.1-1.0); Blood Urea Nitrogen 23 mg/dL (8-24); Bun/Creatinine Ratio 25.6 (12.0-20.0); CO2, Blood 25 mmol/L (21-32); Chloride, Blood 108 mmol/L (98-108); Globulin, Blood 4.3 g/dL (2.2-4.0); Glomerular Filtration Rate >60 (60-); Glucose, Blood 269 mg/dL (70-99); Potassium, Blood 3.6 mmol/L (3.5-5.5); Sodium, Blood 139 mmol/L (136-145)
--- NOTE | 2020-01-02 07:25 | NUR ---
pt has hoarse voice pt reports form freq coughing dry cough ls clear dim bases pt on 1 l n.c.
--- NOTE | 2020-01-02 08:40 | NUR ---
pt eating breakfast meds given as sched pt's daughter at bedside
--- NOTE | 2020-01-02 12:17 | NUR ---
dr baird by to see pt earlier just called re pt's pcp pt stated she has a appt with [facility] on tuesday but does not know the name of the dr
[2020-01-02] MEDS ORDERED: CEFD300 PO (13:32)
--- NOTE | 2020-01-02 13:59 | NUR ---
rx called to [facility]
== END 2020-01-02 14:42 | disposition home or self-care (01) ==
LOC: ER 03:51 → SURS 03:52 → MEDS 03:52 → SURS 07:18
PROVIDERS: Emergency Medicine; ADMIT Internal Medicine
DX: J96.01 Acute respiratory failure with hypoxia (principal); J40 Bronchitis, not specified as acute or chronic; T83.598A Infection and inflammatory reaction due to other prosthetic device, implant and graft in urinary system, initial encounter; E11.40 Type 2 diabetes mellitus with diabetic neuropathy, unspecified; Z79.4 Long term (current) use of insulin; I48.91 Unspecified atrial fibrillation; Z95.0 Presence of cardiac pacemaker; Z79.01 Long term (current) use of anticoagulants; I12.9 Hypertensive chronic kidney disease with stage 1 through stage 4 chronic kidney disease, or unspecified chronic kidney disease; E11.22 Type 2 diabetes mellitus with diabetic chronic kidney disease; N18.30 Chronic kidney disease, stage 3 unspecified; E78.5 Hyperlipidemia, unspecified; Z79.899 Other long term (current) drug therapy; Z91.041 Radiographic dye allergy status; Z91.040 Latex allergy status; Z88.8 Allergy status to other drugs, medicaments and biological substances; Z91.018 Allergy to other foods; E86.0 Dehydration; K21.9 Gastro-esophageal reflux disease without esophagitis; Z86.73 Personal history of transient ischemic attack (TIA), and cerebral infarction without residual deficits
CPT/HCPCS: 0202U; 36415; 71046; 80053; 81001; 82947; 83880; 84484; 85025; 85379; 87077; 87086; 87186; 93005; 93010; 94640; 94762; 96365; 96374; 96375; 96376; 99285-25; A9270; A9270-GY; G0378; J0696; J2930; J7030

== ENCOUNTER 2020-02-10 09:00 | Emergency (ER) | payer MEDICARE ==
[~2020-02-10] VITALS: Ht 165.1 cm; Wt 83.9 kg
[~2020-02-10 09:00] MED LIST changes: +CEFD300 PO; +TORS10
[2020-02-10 09:34] LABS: Source, Urine Catheter
[2020-02-10 09:39] LABS: Appearance, Urine Hazy (Clear); Bilirubin, Urine Neg (Neg); Blood, Urine 2+ (Neg); Color, Urine Yellow (P-Yellow); Glucose Qualitative, Urine 1+ (Neg); Ketones, Urine Neg (Neg); Leukocyte Esterase, Urine 3+ (Neg); Nitrite, Urine Neg (Neg); Protein, Urine 1+ (Neg); Urobilinogen, Urine NORM (Normal); pH, Urine 6.5 (5.0-8.0)
[2020-02-10 09:41] LABS: BASOPHILS ABSOLUTE AUTO 0.02 K/mm3 (0.00-0.23); BASOPHILS PERCENT AUTO 0 % (0-2); EOSINOPHILS ABSOLUTE AUTO 0.18 K/mm3 (0.00-0.68); EOSINOPHILS PERCENT AUTO 1 % (0-6); Hematocrit 38.5 % (33.0-51.0); Hemoglobin 12.4 g/dL (11.5-16.0); IMMATURE GRAN ABSOLUTE AUTO 0.04 K/mm3 (0.00-0.10); IMMATURE GRAN PERCENT AUTO 0 % (0-1); LYMPHOCYTES ABSOLUTE AUTO 3.62 K/mm3 (0.84-5.20); LYMPHOCYTES PERCENT AUTO 27 % (21-46); MONOCYTES ABSOLUTE AUTO 1.25 K/mm3 (0.16-1.47); MONOCYTES PERCENT AUTO 9 % (4-13); Mean Corpuscular HGB 31.2 pg (26.0-34.0); Mean Corpuscular HGB Conc 32.2 g/dL (31.5-36.5); Mean Corpuscular Volume 97 fL (80-100); Mean Platelet Volume 9.7 fL (9.1-12.4); NEUTROPHILS ABSOLUTE AUTO 8.19 K/mm3 (1.96-9.15); NEUTROPHILS PERCENT AUTO 62 % (41-73); Platelet Count 307 K/mm3 (150-400); RDW Coefficient Variation 14.2 % (11.7-14.2); RDW Standard Deviation 50.3 fL (35.1-46.3); Red Blood Cell Count 3.97 M/mm3 (3.80-5.20)
[2020-02-10 09:51] LABS: Albumin, Blood 2.9 g/dL (3.4-5.0); Albumin/Globulin Ratio 0.7 (0.8-1.8); Bilirubin, Total 0.4 mg/dL (0.1-1.0); Calcium, Blood 9.4 mg/dL (8.5-10.1); Globulin, Blood 3.9 g/dL (2.2-4.0); Potassium, Blood 4.1 mmol/L (3.5-5.5); Total Protein, Blood 6.8 g/dL (6.4-8.2)
[2020-02-10 09:52] LABS: Bacteria Few /hpf; Squamous Epithelial Cells Not Seen /hpf (Few); White Blood Cells, Urine TNTC /hpf (0-5)
[2020-02-10] MEDS ORDERED: Keflex250 MG PO (10:41)
== END 2020-02-10 11:00 | disposition home or self-care (01) ==
LOC: ER 09:00
PROVIDERS: Physician Assistant
DX: N39.0 Urinary tract infection, site not specified (principal); K21.9 Gastro-esophageal reflux disease without esophagitis; I48.0 Paroxysmal atrial fibrillation; I10 Essential (primary) hypertension; E11.9 Type 2 diabetes mellitus without complications; E78.5 Hyperlipidemia, unspecified; Z79.899 Other long term (current) drug therapy; Z79.01 Long term (current) use of anticoagulants
CPT/HCPCS: 80053; 81001; 85025; 87086; 99283

== ENCOUNTER → 2020-03-19 | Outpatient (CLI) | payer MEDICARE, SELFPAY ==
[~2020-03-19] MED LIST changes: +ALBU90OI6 INH; +ALPR1 PO; +BUTENAFINE HCL30 GM; +Capzasin-Hp42.5 GM TOP; +Citrucel500 MG PO; +ECONAZOLE NITRA30 GM TOP; +ESTROVEN CMPLT M4 MG PO; +Keflex250 MG PO; +LOSA25 PO; +OMEGA-3 2100 S1 EACH PO; +PIOG15 PO; +SULTRIDS PO; +TRAM50 PO; +TRIA15CR3 TOP; +VAGIFEM10 MCG
== END | disposition home or self-care (01) ==
LOC: LAB HH 16:08 → LAB 16:08
DX: S91.102A Unspecified open wound of left great toe without damage to nail, initial encounter (principal); S81.802A Unspecified open wound, left lower leg, initial encounter
CPT/HCPCS: 87070; 87205

== ENCOUNTER 2020-03-31 00:41 | Day surgery (SDC) | payer MEDICARE, SELFPAY ==
[~2020-03-31 00:41] MED LIST changes: -ALBU90OI6 INH; -ALPR1 PO; -BUTENAFINE HCL30 GM; -Capzasin-Hp42.5 GM TOP; -Citrucel500 MG PO; -ECONAZOLE NITRA30 GM TOP; -ESTROVEN CMPLT M4 MG PO; -LOSA25 PO; -OMEGA-3 2100 S1 EACH PO; -PIOG15 PO; -SULTRIDS PO; -TRAM50 PO; -TRIA15CR3 TOP; -VAGIFEM10 MCG
== END 2020-03-31 23:13 | disposition home or self-care (01) ==
LOC: WOUND 00:41
DX: E11.621 Type 2 diabetes mellitus with foot ulcer (principal); L97.422 Non-pressure chronic ulcer of left heel and midfoot with fat layer exposed; L89.152 Pressure ulcer of sacral region, stage 2; E11.40 Type 2 diabetes mellitus with diabetic neuropathy, unspecified; E11.49 Type 2 diabetes mellitus with other diabetic neurological complication; I10 Essential (primary) hypertension; I73.9 Peripheral vascular disease, unspecified; E78.5 Hyperlipidemia, unspecified; Z85.528 Personal history of other malignant neoplasm of kidney
CPT/HCPCS: A9270; G0463

== ENCOUNTER 2020-04-07 00:28 | Day surgery (SDC) | payer MEDICARE | END 2020-04-07 23:56 | disposition home or self-care (01) | LOC: WOUND 00:28 | DX: E11.621 Type 2 diabetes mellitus with foot ulcer (principal); L97.422 Non-pressure chronic ulcer of left heel and midfoot with fat layer exposed; L97.522 Non-pressure chronic ulcer of other part of left foot with fat layer exposed; L97.512 Non-pressure chronic ulcer of other part of right foot with fat layer exposed; L89.152 Pressure ulcer of sacral region, stage 2; E11.40 Type 2 diabetes mellitus with diabetic neuropathy, unspecified; I10 Essential (primary) hypertension; E78.5 Hyperlipidemia, unspecified; Z85.528 Personal history of other malignant neoplasm of kidney; Z87.19 Personal history of other diseases of the digestive system; Z91.040 Latex allergy status; Z88.8 Allergy status to other drugs, medicaments and biological substances; Z91.048 Other nonmedicinal substance allergy status; Z91.018 Allergy to other foods | CPT/HCPCS: A9270 ==

== ENCOUNTER 2020-04-14 00:42 | Day surgery (SDC) | payer MEDICARE, SELFPAY | END 2020-04-14 22:54 | disposition home or self-care (01) | LOC: WOUND 00:42 | DX: E11.621 Type 2 diabetes mellitus with foot ulcer (principal); E11.622 Type 2 diabetes mellitus with other skin ulcer; L89.153 Pressure ulcer of sacral region, stage 3; E11.49 Type 2 diabetes mellitus with other diabetic neurological complication; L03.032 Cellulitis of left toe; I10 Essential (primary) hypertension | CPT/HCPCS: 73630; 87071; 87075; 87077; 87186; 87205; A9270 ==

== ENCOUNTER 2020-04-21 00:47 | Day surgery (SDC) | payer MEDICARE ==
[2020-04-21] MEDS ORDERED: SULTRIDS PO (13:35)
[2020-04-21] MEDS ORDERED: ALBU90OI6 INH (14:20)
[2020-04-21] MEDS ORDERED: LOSA25 PO (14:20)
[2020-04-21] MEDS ORDERED: ALPR1 PO (14:20)
[2020-04-21] MEDS ORDERED: ESTROVEN CMPLT M4 MG PO (14:21)
[2020-04-21] MEDS ORDERED: Capzasin-Hp42.5 GM TOP (14:21)
[2020-04-21] MEDS ORDERED: TRAM50 PO (14:22)
[2020-04-21] MEDS ORDERED: Citrucel500 MG PO (14:22)
[2020-04-21] MEDS ORDERED: MYRBETRIQ50 MG PO (14:23)
[2020-04-21] MEDS ORDERED: ECONAZOLE NITRA30 GM TOP (14:23)
[2020-04-21] MEDS ORDERED: TRIA15CR3 TOP (14:23)
== END 2020-04-21 22:41 | disposition home or self-care (01) ==
LOC: WOUND 00:47 → EDSTATUS 09:41 → WOUND 09:41
DX: E11.621 Type 2 diabetes mellitus with foot ulcer (principal); L97.526 Non-pressure chronic ulcer of other part of left foot with bone involvement without evidence of necrosis; L97.512 Non-pressure chronic ulcer of other part of right foot with fat layer exposed; L97.422 Non-pressure chronic ulcer of left heel and midfoot with fat layer exposed; E11.69 Type 2 diabetes mellitus with other specified complication; M86.272 Subacute osteomyelitis, left ankle and foot; E11.622 Type 2 diabetes mellitus with other skin ulcer; E11.40 Type 2 diabetes mellitus with diabetic neuropathy, unspecified; I10 Essential (primary) hypertension; E78.5 Hyperlipidemia, unspecified; Z85.53 Personal history of malignant neoplasm of renal pelvis
CPT/HCPCS: 85025; 85651; 86140; 96365; A9270; J1335

== ENCOUNTER 2020-04-21 08:37 | Day surgery (SDC) | payer MEDICARE ==
[2020-04-21 11:09] LABS: BASOPHILS ABSOLUTE AUTO 0.04 K/mm3 (0.00-0.23); BASOPHILS PERCENT AUTO 0 % (0-2); EOSINOPHILS ABSOLUTE AUTO 0.16 K/mm3 (0.00-0.68); EOSINOPHILS PERCENT AUTO 1 % (0-6); Hematocrit 38.5 % (33.0-51.0); Hemoglobin 12.1 g/dL (11.5-16.0); IMMATURE GRAN ABSOLUTE AUTO 0.04 K/mm3 (0.00-0.10); IMMATURE GRAN PERCENT AUTO 0 % (0-1); LYMPHOCYTES ABSOLUTE AUTO 3.56 K/mm3 (0.84-5.20); LYMPHOCYTES PERCENT AUTO 29 % (21-46); MONOCYTES ABSOLUTE AUTO 0.97 K/mm3 (0.16-1.47); MONOCYTES PERCENT AUTO 8 % (4-13); Mean Corpuscular HGB 29.8 pg (26.0-34.0); Mean Corpuscular HGB Conc 31.4 g/dL (31.5-36.5); Mean Corpuscular Volume 95 fL (80-100); Mean Platelet Volume 9.3 fL (9.1-12.4); NEUTROPHILS ABSOLUTE AUTO 7.57 K/mm3 (1.96-9.15); NEUTROPHILS PERCENT AUTO 61 % (41-73); Platelet Count 300 K/mm3 (150-400); RDW Coefficient Variation 14.6 % (11.7-14.2); Red Blood Cell Count 4.06 M/mm3 (3.80-5.20); White Blood Cell Count 12.34 K/mm3 (4.00-11.30)
--- NOTE | 2020-04-21 11:23 | NUR ---
LABS DRAWN FROM IV START PER HOSPITAL PROTOCOL
--- NOTE | 2020-04-21 11:24 | NUR ---
IV WRAPPED WITH 2X2'S AND COBAN FOR USE TOMORROW
[2020-04-21] MEDS ORDERED: SULTRIDS PO (13:35)
[2020-04-21] MEDS ORDERED: ALBU90OI6 INH (14:20)
[2020-04-21] MEDS ORDERED: LOSA25 PO (14:20)
[2020-04-21] MEDS ORDERED: ALPR1 PO (14:20)
[2020-04-21] MEDS ORDERED: ESTROVEN CMPLT M4 MG PO (14:21)
[2020-04-21] MEDS ORDERED: Capzasin-Hp42.5 GM TOP (14:21)
[2020-04-21] MEDS ORDERED: TRAM50 PO (14:22)
[2020-04-21] MEDS ORDERED: Citrucel500 MG PO (14:22)
[2020-04-21] MEDS ORDERED: TRIA15CR3 TOP (14:23)
[2020-04-21] MEDS ORDERED: MYRBETRIQ50 MG PO (14:23)
[2020-04-21] MEDS ORDERED: ECONAZOLE NITRA30 GM TOP (14:23)
== END 2020-04-21 11:25 | disposition home or self-care (01) ==
LOC: ATC 08:37
PROVIDERS: Nurse Practitioner Family
DX: E11.621 Type 2 diabetes mellitus with foot ulcer (principal); E11.622 Type 2 diabetes mellitus with other skin ulcer; L89.153 Pressure ulcer of sacral region, stage 3; E11.49 Type 2 diabetes mellitus with other diabetic neurological complication; I10 Essential (primary) hypertension; M19.90 Unspecified osteoarthritis, unspecified site; Z88.8 Allergy status to other drugs, medicaments and biological substances; Z88.1 Allergy status to other antibiotic agents; Z91.040 Latex allergy status; Z91.018 Allergy to other foods
CPT/HCPCS: 85025; 85651; 86140; 96365; J1335

== ENCOUNTER 2020-04-22 09:15 | Day surgery (SDC) | payer MEDICARE ==
[~2020-04-22 09:15] MED LIST changes: +ALBU90OI6 INH; +ALPR1 PO; +Capzasin-Hp42.5 GM TOP; +Citrucel500 MG PO; +ECONAZOLE NITRA30 GM TOP; +ESTROVEN CMPLT M4 MG PO; +LOSA25 PO; +SULTRIDS PO; +TRAM50 PO; +TRIA15CR3 TOP
== END 2020-04-22 11:24 | disposition home or self-care (01) ==
LOC: ATC 09:15
DX: E11.621 Type 2 diabetes mellitus with foot ulcer (principal); E11.622 Type 2 diabetes mellitus with other skin ulcer; L89.153 Pressure ulcer of sacral region, stage 3; E11.49 Type 2 diabetes mellitus with other diabetic neurological complication; L97.509 Non-pressure chronic ulcer of other part of unspecified foot with unspecified severity; I10 Essential (primary) hypertension; E11.51 Type 2 diabetes mellitus with diabetic peripheral angiopathy without gangrene; M19.90 Unspecified osteoarthritis, unspecified site; Z88.1 Allergy status to other antibiotic agents; Z91.040 Latex allergy status; Z88.8 Allergy status to other drugs, medicaments and biological substances; Z91.018 Allergy to other foods; Z91.048 Other nonmedicinal substance allergy status
CPT/HCPCS: 96365; J1335

== ENCOUNTER 2020-04-23 00:03 | Day surgery (SDC) | payer MEDICARE ==
--- NOTE | 2020-04-23 17:56 | NUR ---
PT HAD FALL IN PARKING LOT, ASSISTED BY DAUGHTER. IRIS COMPLETED. VS TAKEN AFTER THE FALL ARE FOLLOWS: BP: 154/70, HR: 75, BIOX: 95 O2, RR: 18.
== END 2020-04-23 11:15 | disposition home or self-care (01) ==
LOC: ATC 00:03
DX: E11.621 Type 2 diabetes mellitus with foot ulcer (principal); L97.509 Non-pressure chronic ulcer of other part of unspecified foot with unspecified severity; E11.622 Type 2 diabetes mellitus with other skin ulcer; L98.499 Non-pressure chronic ulcer of skin of other sites with unspecified severity; L89.153 Pressure ulcer of sacral region, stage 3; I10 Essential (primary) hypertension; E11.51 Type 2 diabetes mellitus with diabetic peripheral angiopathy without gangrene; M19.90 Unspecified osteoarthritis, unspecified site; E11.40 Type 2 diabetes mellitus with diabetic neuropathy, unspecified; Z90.5 Acquired absence of kidney
CPT/HCPCS: 96365; J1335

== ENCOUNTER 2020-04-24 00:04 | Day surgery (SDC) | payer MEDICARE, SELFPAY ==
--- NOTE | 2020-04-24 11:32 | NUR ---
UNSUCCESSFUL PICC PLACEMENT ATTEMPT. PICC WOULD NOT ADVANCE PAST L SHOULDER VIA L BRACHIAL VAIN. NOTIFIED MACI MANUEL. WILL REATTEMPT TOMORROW, IF UNABLE TO PLACE PICC AT THAT TIME WILL PLACE POWER GLIDE.
== END 2020-04-24 09:45 | disposition home or self-care (01) ==
LOC: ATC 00:04
DX: E11.621 Type 2 diabetes mellitus with foot ulcer (principal); E11.622 Type 2 diabetes mellitus with other skin ulcer; L89.153 Pressure ulcer of sacral region, stage 3; E11.49 Type 2 diabetes mellitus with other diabetic neurological complication; I10 Essential (primary) hypertension; Z91.040 Latex allergy status; Z91.018 Allergy to other foods; Z91.048 Other nonmedicinal substance allergy status; Z88.1 Allergy status to other antibiotic agents; Z88.8 Allergy status to other drugs, medicaments and biological substances
CPT/HCPCS: 36569; 71045; 96365; C1751; J1335

== ENCOUNTER 2020-04-25 00:38 | Day surgery (SDC) | payer MEDICARE, SELFPAY ==
--- NOTE | 2020-04-25 14:17 | NUR ---
UNSUCCESSFUL ATTEMPT TO PLACE PICC, COULD NOT THREAD CATHETER. UNABLE TO PLACE POWER GLIDE, COULD NOT ACCESS VEIN. WILL USE IV.
== END 2020-04-25 12:10 | disposition home or self-care (01) ==
LOC: ATC 00:38
DX: E11.621 Type 2 diabetes mellitus with foot ulcer (principal); E11.622 Type 2 diabetes mellitus with other skin ulcer; L89.153 Pressure ulcer of sacral region, stage 3; E11.49 Type 2 diabetes mellitus with other diabetic neurological complication; E11.51 Type 2 diabetes mellitus with diabetic peripheral angiopathy without gangrene; L97.509 Non-pressure chronic ulcer of other part of unspecified foot with unspecified severity; I10 Essential (primary) hypertension; M19.90 Unspecified osteoarthritis, unspecified site; Z88.1 Allergy status to other antibiotic agents; Z91.040 Latex allergy status; Z88.8 Allergy status to other drugs, medicaments and biological substances; Z91.018 Allergy to other foods; Z91.048 Other nonmedicinal substance allergy status
CPT/HCPCS: 36569; 96365; C1751; J1335

== ENCOUNTER 2020-04-26 00:23 | Day surgery (SDC) | payer MEDICARE ==
--- NOTE | 2020-04-26 11:19 | NUR ---
IV SITE TO RIGHT FOREARM WRAPPED WITH 2X2'S COBAN AND NETTING FOR USE TOMORROW
== END 2020-04-26 11:19 | disposition home or self-care (01) ==
LOC: ATC 00:23
DX: E11.621 Type 2 diabetes mellitus with foot ulcer (principal); E11.622 Type 2 diabetes mellitus with other skin ulcer; L89.153 Pressure ulcer of sacral region, stage 3; E11.49 Type 2 diabetes mellitus with other diabetic neurological complication; I10 Essential (primary) hypertension
CPT/HCPCS: 96365; J1335

== ENCOUNTER 2020-04-27 00:09 | Day surgery (SDC) | payer MEDICARE ==
--- NOTE | 2020-04-27 11:36 | NUR ---
IV SITE TO RIGHT FOREARM WRAPPED WITH 2X2'S, COBAN, AND NETTING FOR INFUSION TOMORROW
== END 2020-04-27 11:36 | disposition home or self-care (01) ==
LOC: ATC 00:09
DX: E11.622 Type 2 diabetes mellitus with other skin ulcer (principal); E11.621 Type 2 diabetes mellitus with foot ulcer; L89.153 Pressure ulcer of sacral region, stage 3; L97.509 Non-pressure chronic ulcer of other part of unspecified foot with unspecified severity; B96.1 Klebsiella pneumoniae [K. pneumoniae] as the cause of diseases classified elsewhere; B96.89 Other specified bacterial agents as the cause of diseases classified elsewhere; E11.49 Type 2 diabetes mellitus with other diabetic neurological complication; E11.51 Type 2 diabetes mellitus with diabetic peripheral angiopathy without gangrene; E11.40 Type 2 diabetes mellitus with diabetic neuropathy, unspecified; I10 Essential (primary) hypertension; Z99.3 Dependence on wheelchair
CPT/HCPCS: 96365; J1335

== ENCOUNTER 2020-04-28 01:07 | Day surgery (SDC) | payer MEDICARE | END 2020-04-28 11:32 | disposition home or self-care (01) | LOC: ATC 01:07 | DX: E11.621 Type 2 diabetes mellitus with foot ulcer (principal); E11.622 Type 2 diabetes mellitus with other skin ulcer; L89.153 Pressure ulcer of sacral region, stage 3; E11.49 Type 2 diabetes mellitus with other diabetic neurological complication; I10 Essential (primary) hypertension; Z88.1 Allergy status to other antibiotic agents; Z88.8 Allergy status to other drugs, medicaments and biological substances; Z91.048 Other nonmedicinal substance allergy status; Z91.09 Other allergy status, other than to drugs and biological substances | CPT/HCPCS: 83036; 96365; A9270; C1751; J1335 ==

== ENCOUNTER 2020-04-28 01:21 | Day surgery (SDC) | payer MEDICARE, SELFPAY | END 2020-04-28 23:06 | disposition home or self-care (01) | LOC: WOUND 01:21 | DX: E11.621 Type 2 diabetes mellitus with foot ulcer (principal); L97.522 Non-pressure chronic ulcer of other part of left foot with fat layer exposed; L97.512 Non-pressure chronic ulcer of other part of right foot with fat layer exposed; E11.622 Type 2 diabetes mellitus with other skin ulcer; E11.49 Type 2 diabetes mellitus with other diabetic neurological complication; E11.40 Type 2 diabetes mellitus with diabetic neuropathy, unspecified; E11.69 Type 2 diabetes mellitus with other specified complication; M86.28 Subacute osteomyelitis, other site; I10 Essential (primary) hypertension; E78.5 Hyperlipidemia, unspecified; Z85.528 Personal history of other malignant neoplasm of kidney | CPT/HCPCS: 83036; 96365; A9270; C1751; J1335 ==

== ENCOUNTER 2020-04-29 00:08 | Day surgery (SDC) | payer MEDICARE | END 2020-04-29 08:00 | disposition home or self-care (01) | LOC: ATC 00:08 | DX: E11.621 Type 2 diabetes mellitus with foot ulcer (principal); E11.622 Type 2 diabetes mellitus with other skin ulcer; L89.153 Pressure ulcer of sacral region, stage 3; B96.1 Klebsiella pneumoniae [K. pneumoniae] as the cause of diseases classified elsewhere; E11.49 Type 2 diabetes mellitus with other diabetic neurological complication; E11.51 Type 2 diabetes mellitus with diabetic peripheral angiopathy without gangrene; I10 Essential (primary) hypertension; M19.90 Unspecified osteoarthritis, unspecified site; E11.40 Type 2 diabetes mellitus with diabetic neuropathy, unspecified; Z88.9 Allergy status to unspecified drugs, medicaments and biological substances; Z88.1 Allergy status to other antibiotic agents; Z91.040 Latex allergy status; Z88.8 Allergy status to other drugs, medicaments and biological substances; Z91.018 Allergy to other foods; Z79.01 Long term (current) use of anticoagulants; Z99.3 Dependence on wheelchair | CPT/HCPCS: 96365; J1335 ==

== ENCOUNTER 2020-04-30 00:01 | Day surgery (SDC) | payer MEDICARE | END 2020-04-30 08:00 | disposition home or self-care (01) | LOC: ATC 00:01 | DX: E11.621 Type 2 diabetes mellitus with foot ulcer (principal); L97.522 Non-pressure chronic ulcer of other part of left foot with fat layer exposed; L97.511 Non-pressure chronic ulcer of other part of right foot limited to breakdown of skin; L97.422 Non-pressure chronic ulcer of left heel and midfoot with fat layer exposed; E11.69 Type 2 diabetes mellitus with other specified complication; L89.153 Pressure ulcer of sacral region, stage 3; M86.28 Subacute osteomyelitis, other site; E78.5 Hyperlipidemia, unspecified; I10 Essential (primary) hypertension; E11.40 Type 2 diabetes mellitus with diabetic neuropathy, unspecified | CPT/HCPCS: 96365; J1335 ==

== ENCOUNTER 2020-05-01 00:05 | Day surgery (SDC) | payer MEDICARE | END 2020-05-01 09:54 | disposition home or self-care (01) | LOC: ATC 00:05 | DX: E11.621 Type 2 diabetes mellitus with foot ulcer (principal); E11.622 Type 2 diabetes mellitus with other skin ulcer; L89.153 Pressure ulcer of sacral region, stage 3; E11.49 Type 2 diabetes mellitus with other diabetic neurological complication; I10 Essential (primary) hypertension; Z88.1 Allergy status to other antibiotic agents; Z91.040 Latex allergy status; Z88.8 Allergy status to other drugs, medicaments and biological substances; Z91.018 Allergy to other foods; Z91.048 Other nonmedicinal substance allergy status | CPT/HCPCS: 96365; J1335 ==

== ENCOUNTER 2020-05-02 00:39 | Day surgery (SDC) | payer MEDICARE | END 2020-05-02 09:41 | disposition home or self-care (01) | LOC: ATC 00:39 | DX: E11.621 Type 2 diabetes mellitus with foot ulcer (principal); L97.522 Non-pressure chronic ulcer of other part of left foot with fat layer exposed; L97.511 Non-pressure chronic ulcer of other part of right foot limited to breakdown of skin; L97.422 Non-pressure chronic ulcer of left heel and midfoot with fat layer exposed; L89.156 Pressure-induced deep tissue damage of sacral region; E11.69 Type 2 diabetes mellitus with other specified complication; M86.28 Subacute osteomyelitis, other site; E78.5 Hyperlipidemia, unspecified; I10 Essential (primary) hypertension; E11.40 Type 2 diabetes mellitus with diabetic neuropathy, unspecified | CPT/HCPCS: 96365; J1335 ==

== ENCOUNTER 2020-05-03 00:36 | Day surgery (SDC) | payer MEDICARE | END 2020-05-03 10:17 | disposition home or self-care (01) | LOC: ATC 00:36 | DX: E11.621 Type 2 diabetes mellitus with foot ulcer (principal); L97.509 Non-pressure chronic ulcer of other part of unspecified foot with unspecified severity; E11.622 Type 2 diabetes mellitus with other skin ulcer; L98.499 Non-pressure chronic ulcer of skin of other sites with unspecified severity; L89.153 Pressure ulcer of sacral region, stage 3; E11.49 Type 2 diabetes mellitus with other diabetic neurological complication; A49.8 Other bacterial infections of unspecified site; I10 Essential (primary) hypertension; E11.51 Type 2 diabetes mellitus with diabetic peripheral angiopathy without gangrene; M19.90 Unspecified osteoarthritis, unspecified site; Z90.5 Acquired absence of kidney; Z88.1 Allergy status to other antibiotic agents; Z91.040 Latex allergy status; Z88.8 Allergy status to other drugs, medicaments and biological substances; Z91.018 Allergy to other foods; Z91.048 Other nonmedicinal substance allergy status | CPT/HCPCS: 96365; J1335 ==

== ENCOUNTER 2020-05-04 03:09 | Day surgery (SDC) | payer MEDICARE | END 2020-05-04 09:44 | disposition home or self-care (01) | LOC: ATC 03:09 | DX: E11.621 Type 2 diabetes mellitus with foot ulcer (principal); E11.622 Type 2 diabetes mellitus with other skin ulcer; L89.153 Pressure ulcer of sacral region, stage 3; L97.509 Non-pressure chronic ulcer of other part of unspecified foot with unspecified severity; B96.1 Klebsiella pneumoniae [K. pneumoniae] as the cause of diseases classified elsewhere; E11.49 Type 2 diabetes mellitus with other diabetic neurological complication; Z99.3 Dependence on wheelchair; Z88.1 Allergy status to other antibiotic agents; Z91.040 Latex allergy status; Z88.8 Allergy status to other drugs, medicaments and biological substances; Z91.018 Allergy to other foods | CPT/HCPCS: 96365; J1335 ==

== ENCOUNTER 2020-05-05 00:08 | Day surgery (SDC) | payer MEDICARE, SELFPAY | END 2020-05-05 23:00 | disposition home or self-care (01) | LOC: WOUND 00:08 | DX: E11.621 Type 2 diabetes mellitus with foot ulcer (principal); L97.522 Non-pressure chronic ulcer of other part of left foot with fat layer exposed; L97.511 Non-pressure chronic ulcer of other part of right foot limited to breakdown of skin; L97.422 Non-pressure chronic ulcer of left heel and midfoot with fat layer exposed; L89.156 Pressure-induced deep tissue damage of sacral region; E11.69 Type 2 diabetes mellitus with other specified complication; M86.28 Subacute osteomyelitis, other site; I10 Essential (primary) hypertension; E11.40 Type 2 diabetes mellitus with diabetic neuropathy, unspecified; E78.5 Hyperlipidemia, unspecified | CPT/HCPCS: 96365; A9270; J1335 ==

== ENCOUNTER 2020-05-06 00:24 | Day surgery (SDC) | payer MEDICARE | END 2020-05-06 10:05 | disposition home or self-care (01) | LOC: ATC 00:24 | DX: E11.621 Type 2 diabetes mellitus with foot ulcer (principal); L97.509 Non-pressure chronic ulcer of other part of unspecified foot with unspecified severity; E11.622 Type 2 diabetes mellitus with other skin ulcer; L89.153 Pressure ulcer of sacral region, stage 3; E11.49 Type 2 diabetes mellitus with other diabetic neurological complication; E11.51 Type 2 diabetes mellitus with diabetic peripheral angiopathy without gangrene; B96.1 Klebsiella pneumoniae [K. pneumoniae] as the cause of diseases classified elsewhere; I10 Essential (primary) hypertension; E11.40 Type 2 diabetes mellitus with diabetic neuropathy, unspecified; M19.90 Unspecified osteoarthritis, unspecified site; Z88.1 Allergy status to other antibiotic agents; Z91.040 Latex allergy status; Z88.8 Allergy status to other drugs, medicaments and biological substances; Z91.018 Allergy to other foods; Z91.048 Other nonmedicinal substance allergy status | CPT/HCPCS: 96365; J1335 ==

== ENCOUNTER 2020-05-07 00:34 | Day surgery (SDC) | payer MEDICARE | END 2020-05-07 09:45 | disposition home or self-care (01) | LOC: ATC 00:34 | DX: E11.621 Type 2 diabetes mellitus with foot ulcer (principal); E11.622 Type 2 diabetes mellitus with other skin ulcer; L97.509 Non-pressure chronic ulcer of other part of unspecified foot with unspecified severity; L89.153 Pressure ulcer of sacral region, stage 3; E11.49 Type 2 diabetes mellitus with other diabetic neurological complication; E11.51 Type 2 diabetes mellitus with diabetic peripheral angiopathy without gangrene; E11.40 Type 2 diabetes mellitus with diabetic neuropathy, unspecified; I10 Essential (primary) hypertension; Z79.01 Long term (current) use of anticoagulants | CPT/HCPCS: 96365; J1335 ==

== ENCOUNTER 2020-05-08 00:02 | Day surgery (SDC) | payer MEDICARE | END 2020-05-08 09:23 | disposition home or self-care (01) | LOC: ATC 00:02 | DX: E11.621 Type 2 diabetes mellitus with foot ulcer (principal); L97.509 Non-pressure chronic ulcer of other part of unspecified foot with unspecified severity; E11.622 Type 2 diabetes mellitus with other skin ulcer; L89.153 Pressure ulcer of sacral region, stage 3; E11.49 Type 2 diabetes mellitus with other diabetic neurological complication; I10 Essential (primary) hypertension; E11.51 Type 2 diabetes mellitus with diabetic peripheral angiopathy without gangrene; A49.8 Other bacterial infections of unspecified site | CPT/HCPCS: 96365; J1335 ==

== ENCOUNTER 2020-05-09 00:46 | Day surgery (SDC) | payer MEDICARE | END 2020-05-09 22:41 | disposition home or self-care (01) | LOC: ATC 00:46 | DX: E11.621 Type 2 diabetes mellitus with foot ulcer (principal); E11.622 Type 2 diabetes mellitus with other skin ulcer; L89.153 Pressure ulcer of sacral region, stage 3; E11.49 Type 2 diabetes mellitus with other diabetic neurological complication; Z88.1 Allergy status to other antibiotic agents; Z88.8 Allergy status to other drugs, medicaments and biological substances; Z91.040 Latex allergy status | CPT/HCPCS: J1335 ==

== ENCOUNTER 2020-05-12 00:39 | Day surgery (SDC) | payer MEDICARE, SELFPAY ==
[2020-05-12 10:47] LABS: BASOPHILS ABSOLUTE AUTO 0.03 K/mm3 (0.00-0.23); BASOPHILS PERCENT AUTO 0 % (0-2); EOSINOPHILS ABSOLUTE AUTO 0.37 K/mm3 (0.00-0.68); EOSINOPHILS PERCENT AUTO 4 % (0-6); Hematocrit 38.4 % (33.0-51.0); Hemoglobin 12.3 g/dL (11.5-16.0); IMMATURE GRAN ABSOLUTE AUTO 0.02 K/mm3 (0.00-0.10); IMMATURE GRAN PERCENT AUTO 0 % (0-1); LYMPHOCYTES ABSOLUTE AUTO 3.48 K/mm3 (0.84-5.20); LYMPHOCYTES PERCENT AUTO 37 % (21-46); MONOCYTES ABSOLUTE AUTO 0.65 K/mm3 (0.16-1.47); MONOCYTES PERCENT AUTO 7 % (4-13); Mean Corpuscular Volume 94 fL (80-100); Mean Platelet Volume 10.3 fL (9.1-12.4); NEUTROPHILS ABSOLUTE AUTO 4.88 K/mm3 (1.96-9.15); NEUTROPHILS PERCENT AUTO 52 % (41-73); Platelet Count 279 K/mm3 (150-400); RDW Coefficient Variation 14.1 % (11.7-14.2); RDW Standard Deviation 48.2 fL (35.1-46.3); White Blood Cell Count 9.43 K/mm3 (4.00-11.30)
== END 2020-05-12 22:57 | disposition home or self-care (01) ==
LOC: WOUND 00:39
PROVIDERS: Nurse Practitioner Family
DX: E11.621 Type 2 diabetes mellitus with foot ulcer (principal); L97.422 Non-pressure chronic ulcer of left heel and midfoot with fat layer exposed; L97.522 Non-pressure chronic ulcer of other part of left foot with fat layer exposed; L97.519 Non-pressure chronic ulcer of other part of right foot with unspecified severity; L89.150 Pressure ulcer of sacral region, unstageable; E11.622 Type 2 diabetes mellitus with other skin ulcer; E11.69 Type 2 diabetes mellitus with other specified complication; E11.49 Type 2 diabetes mellitus with other diabetic neurological complication; M86.28 Subacute osteomyelitis, other site; I10 Essential (primary) hypertension; Z85.528 Personal history of other malignant neoplasm of kidney; E78.5 Hyperlipidemia, unspecified
CPT/HCPCS: 85025; 85651; 86140; A9270

== ENCOUNTER 2020-05-14 00:01 | Day surgery (SDC) | payer MEDICARE | END 2020-05-14 09:25 | disposition home or self-care (01) | LOC: ATC 00:01 | DX: E11.621 Type 2 diabetes mellitus with foot ulcer (principal); E11.622 Type 2 diabetes mellitus with other skin ulcer; L89.153 Pressure ulcer of sacral region, stage 3; E11.49 Type 2 diabetes mellitus with other diabetic neurological complication; I10 Essential (primary) hypertension; Z88.1 Allergy status to other antibiotic agents; Z91.040 Latex allergy status; Z88.8 Allergy status to other drugs, medicaments and biological substances; Z91.018 Allergy to other foods; Z91.048 Other nonmedicinal substance allergy status | CPT/HCPCS: 99212 ==

== ENCOUNTER 2020-05-19 02:17 | Day surgery (SDC) | payer MEDICARE, SELFPAY | END 2020-05-19 23:26 | disposition home or self-care (01) | LOC: WOUND 02:17 | DX: E11.621 Type 2 diabetes mellitus with foot ulcer (principal); L97.422 Non-pressure chronic ulcer of left heel and midfoot with fat layer exposed; L97.525 Non-pressure chronic ulcer of other part of left foot with muscle involvement without evidence of necrosis; E11.622 Type 2 diabetes mellitus with other skin ulcer; E11.49 Type 2 diabetes mellitus with other diabetic neurological complication; M86.28 Subacute osteomyelitis, other site; I10 Essential (primary) hypertension; E11.9 Type 2 diabetes mellitus without complications; E78.5 Hyperlipidemia, unspecified; Z85.528 Personal history of other malignant neoplasm of kidney | CPT/HCPCS: A9270 ==

== ENCOUNTER 2020-05-26 00:27 | Day surgery (SDC) | payer MEDICARE, SELFPAY | END 2020-05-26 22:49 | disposition home or self-care (01) | LOC: WOUND 00:27 | DX: E11.621 Type 2 diabetes mellitus with foot ulcer (principal); L97.422 Non-pressure chronic ulcer of left heel and midfoot with fat layer exposed; L97.526 Non-pressure chronic ulcer of other part of left foot with bone involvement without evidence of necrosis; L97.518 Non-pressure chronic ulcer of other part of right foot with other specified severity; L89.152 Pressure ulcer of sacral region, stage 2; E11.69 Type 2 diabetes mellitus with other specified complication; M86.272 Subacute osteomyelitis, left ankle and foot; I10 Essential (primary) hypertension; E78.5 Hyperlipidemia, unspecified; E11.40 Type 2 diabetes mellitus with diabetic neuropathy, unspecified; Z85.528 Personal history of other malignant neoplasm of kidney; Z88.1 Allergy status to other antibiotic agents; Z91.040 Latex allergy status; Z88.8 Allergy status to other drugs, medicaments and biological substances; Z91.018 Allergy to other foods; Z91.048 Other nonmedicinal substance allergy status | CPT/HCPCS: A9270 ==

== ENCOUNTER 2020-06-02 00:46 | Day surgery (SDC) | payer MEDICARE | END 2020-06-02 22:50 | disposition home or self-care (01) | LOC: WOUND 00:46 | DX: E11.621 Type 2 diabetes mellitus with foot ulcer (principal); L97.526 Non-pressure chronic ulcer of other part of left foot with bone involvement without evidence of necrosis; L97.422 Non-pressure chronic ulcer of left heel and midfoot with fat layer exposed; L97.511 Non-pressure chronic ulcer of other part of right foot limited to breakdown of skin; E11.622 Type 2 diabetes mellitus with other skin ulcer; L97.821 Non-pressure chronic ulcer of other part of left lower leg limited to breakdown of skin; L89.152 Pressure ulcer of sacral region, stage 2; E11.49 Type 2 diabetes mellitus with other diabetic neurological complication; E11.69 Type 2 diabetes mellitus with other specified complication; M86.18 Other acute osteomyelitis, other site | CPT/HCPCS: 85651; 86140; A9270 ==

== ENCOUNTER 2020-06-09 00:24 | Day surgery (SDC) | payer MEDICARE | END 2020-06-09 22:39 | disposition home or self-care (01) | LOC: WOUND 00:24 | DX: E11.621 Type 2 diabetes mellitus with foot ulcer (principal); L97.526 Non-pressure chronic ulcer of other part of left foot with bone involvement without evidence of necrosis; L97.422 Non-pressure chronic ulcer of left heel and midfoot with fat layer exposed; L97.511 Non-pressure chronic ulcer of other part of right foot limited to breakdown of skin; L89.152 Pressure ulcer of sacral region, stage 2; E11.69 Type 2 diabetes mellitus with other specified complication; M86.272 Subacute osteomyelitis, left ankle and foot; E11.622 Type 2 diabetes mellitus with other skin ulcer; E11.49 Type 2 diabetes mellitus with other diabetic neurological complication; E11.40 Type 2 diabetes mellitus with diabetic neuropathy, unspecified; I10 Essential (primary) hypertension; E78.5 Hyperlipidemia, unspecified; Z85.528 Personal history of other malignant neoplasm of kidney | CPT/HCPCS: A9270 ==

== ENCOUNTER 2020-06-16 00:13 | Day surgery (SDC) | payer MEDICARE | END 2020-06-16 23:02 | disposition home or self-care (01) | LOC: WOUND 00:13 | DX: E11.621 Type 2 diabetes mellitus with foot ulcer (principal); L97.422 Non-pressure chronic ulcer of left heel and midfoot with fat layer exposed; L97.522 Non-pressure chronic ulcer of other part of left foot with fat layer exposed; E11.622 Type 2 diabetes mellitus with other skin ulcer; L97.822 Non-pressure chronic ulcer of other part of left lower leg with fat layer exposed; E11.49 Type 2 diabetes mellitus with other diabetic neurological complication; M86.28 Subacute osteomyelitis, other site; I10 Essential (primary) hypertension; E78.5 Hyperlipidemia, unspecified | CPT/HCPCS: A9270 ==

== ENCOUNTER 2020-06-30 00:03 | Day surgery (SDC) | payer MEDICARE | END 2020-06-30 22:52 | disposition home or self-care (01) | LOC: WOUND 00:03 | DX: E11.621 Type 2 diabetes mellitus with foot ulcer (principal); L97.422 Non-pressure chronic ulcer of left heel and midfoot with fat layer exposed; L97.522 Non-pressure chronic ulcer of other part of left foot with fat layer exposed; E11.622 Type 2 diabetes mellitus with other skin ulcer; E11.49 Type 2 diabetes mellitus with other diabetic neurological complication; M86.28 Subacute osteomyelitis, other site; I10 Essential (primary) hypertension; E78.5 Hyperlipidemia, unspecified; Z85.528 Personal history of other malignant neoplasm of kidney | CPT/HCPCS: A9270 ==

== ENCOUNTER 2020-07-07 00:10 | Day surgery (SDC) | payer MEDICARE ==
[2020-07-07] MEDS ORDERED: VAGIFEM10 MCG (08:41)
[2020-07-07] MEDS ORDERED: GABA300 PO (08:41)
[2020-07-07] MEDS ORDERED: BUTENAFINE HCL30 GM (08:41)
[2020-07-07] MEDS ORDERED: PIOG15 PO (08:42)
[2020-07-07] MEDS ORDERED: OMEGA-3 2100 S1 EACH PO (08:42)
== END 2020-07-07 22:50 | disposition home or self-care (01) ==
LOC: WOUND 00:10
DX: E11.621 Type 2 diabetes mellitus with foot ulcer (principal); L97.526 Non-pressure chronic ulcer of other part of left foot with bone involvement without evidence of necrosis; L97.425 Non-pressure chronic ulcer of left heel and midfoot with muscle involvement without evidence of necrosis; L89.152 Pressure ulcer of sacral region, stage 2; E11.622 Type 2 diabetes mellitus with other skin ulcer; L97.829 Non-pressure chronic ulcer of other part of left lower leg with unspecified severity; E11.49 Type 2 diabetes mellitus with other diabetic neurological complication; M86.28 Subacute osteomyelitis, other site; I10 Essential (primary) hypertension; E78.5 Hyperlipidemia, unspecified; Z85.528 Personal history of other malignant neoplasm of kidney; Z88.1 Allergy status to other antibiotic agents; Z88.8 Allergy status to other drugs, medicaments and biological substances; Z91.040 Latex allergy status
CPT/HCPCS: A9270; G0463

== ENCOUNTER 2020-07-09 06:23 | Day surgery (SDC) | payer MEDICARE ==
[~2020-07-09] VITALS: Ht 165.1 cm; Wt 82.0 kg
[~2020-07-09 06:23] MED LIST changes: +BUTENAFINE HCL30 GM; +OMEGA-3 2100 S1 EACH PO; +PIOG15 PO; +VAGIFEM10 MCG
--- NOTE | 2020-07-09 09:45 | NUR ---
PT BROUGHT BACK TO RECOVERY ROOM VIA GURNEY, SUPINE. RIGHT FEMORAL ARTERIAL SITE WITH CLEAR TEGADERM INTACT, SOFT NON TENDER WITH NO OOZING OR BLEEDING NOTED. ANGIOSEAL DEVICE PLACED AT END OF PROCEDURE. DR. MASON AT BEDSIDE TO SPEAK WITH PATIENT AND FAMILY ABOUT RESULTS OF PROCEDURE. VSS. CALL LIGHT IN REACH, WILL CONTINUE TO MONITOR.
--- NOTE | 2020-07-09 10:30 | NUR ---
PT PROVIDED WITH MEAL TRAY, FAMILY AT BEDSIDE TO ASSIST HER WITH FEEDING. PT HOB AT 45 DEGREES, RIGHT GROIN SITE REMAINS STABLE, DRESSING C/D/I. DENIES NEEDS AT THIS TIME. CALL LIGHT IN REACH.
--- NOTE | 2020-07-09 11:10 | NUR ---
HOB RAISED TO 90 DEGREES, RIGHT GROIN SITE REMAINS SOFT NON TENDER WITH NO BLEEDING OR OOZING NOTED. FAMILY REMAINS AT BEDSIDE. NO DISTRESS NOTED.
--- NOTE | 2020-07-09 11:40 | NUR ---
PT DAUGHTER AT BEDSIDE TO ASSIST HER WITH GETTING DRESSED. NEW DRESSING APPLIED TO LEFT HEAL, PT REPORTS THAT HOME HEALTH NURSE WILL BE OUT TO REDRESS HER WOUND WHEN SHE GETS HOME TODAY. DISCHARGE INSTRUCTIONS REVIEWED, VERBAL UNDERSTANDING FROM PATIENT AND FAMILY. COPIES PROVIDED IN FOLDER. IV REMOVED WITH CATH INTACT, PRESSURE DRESSING APPLIED. ENCOURAGED TO FOLLOW UP SCHEDULED. NO ACUTE DISTRESS NOTED AT TIME OF DISCHARGE.
== END 2020-07-09 16:00 | disposition home or self-care (01) ==
LOC: MHTC 06:23
DX: E11.51 Type 2 diabetes mellitus with diabetic peripheral angiopathy without gangrene (principal); I70.213 Atherosclerosis of native arteries of extremities with intermittent claudication, bilateral legs; I70.245 Atherosclerosis of native arteries of left leg with ulceration of other part of foot; L97.529 Non-pressure chronic ulcer of other part of left foot with unspecified severity; E11.22 Type 2 diabetes mellitus with diabetic chronic kidney disease; E11.69 Type 2 diabetes mellitus with other specified complication; I12.9 Hypertensive chronic kidney disease with stage 1 through stage 4 chronic kidney disease, or unspecified chronic kidney disease; M86.172 Other acute osteomyelitis, left ankle and foot; N18.9 Chronic kidney disease, unspecified; I48.91 Unspecified atrial fibrillation; I87.2 Venous insufficiency (chronic) (peripheral); K21.9 Gastro-esophageal reflux disease without esophagitis; E78.5 Hyperlipidemia, unspecified; M85.80 Other specified disorders of bone density and structure, unspecified site; A04.72 Enterocolitis due to Clostridium difficile, not specified as recurrent; Z79.01 Long term (current) use of anticoagulants
CPT/HCPCS: 37224; 37228; 37232; 75625; 75716; 75774; 76937; 99152; 99153; C1725; C1760; C1769; C1887; C1894; C2623; J1200; J1644; J1720; J2250; J3010; J7030; J7050; Q9967

== ENCOUNTER 2020-07-14 06:07 | Day surgery (SDC) | payer MEDICARE ==
[~2020-07-14] VITALS: Ht 165.1 cm; Wt 82.7 kg
--- NOTE | 2020-07-14 06:50 | NUR ---
07/14/20 0650 Trang Doshi,EDDY CHARTING FOR THIS PATIENT PRE-OP
--- NOTE | 2020-07-14 08:24 | NUR ---
07/14/20 0824 Trang Doshi POST OP CHARTING DONE BY ALLYSSA KENT RN
== END 2020-07-14 09:02 | disposition home or self-care (01) ==
LOC: ORSCSDS 06:07
PROVIDERS: Podiatrist Foot & Ankle Surgery
PROC: 0Y6Q0Z3 Detachment at Left 1st Toe, Low, Open Approach (ICD-10-PCS; principal; 2020-07-14 07:45)
DX: M86.9 Osteomyelitis, unspecified (principal); E08.42 Diabetes mellitus due to underlying condition with diabetic polyneuropathy; L89.893 Pressure ulcer of other site, stage 3; I10 Essential (primary) hypertension; E78.5 Hyperlipidemia, unspecified; N18.9 Chronic kidney disease, unspecified; Z79.899 Other long term (current) drug therapy
CPT/HCPCS: 82947; 88305; 88311; J0171; J0690; J1100; J2001; J2405; J2704; J3010; J7120

== ENCOUNTER 2020-07-16 03:20 | Day surgery (SDC) | payer MEDICARE | END 2020-07-16 23:19 | disposition home or self-care (01) | LOC: WOUND 03:20 | DX: E11.621 Type 2 diabetes mellitus with foot ulcer (principal); L97.422 Non-pressure chronic ulcer of left heel and midfoot with fat layer exposed; E11.622 Type 2 diabetes mellitus with other skin ulcer; E11.49 Type 2 diabetes mellitus with other diabetic neurological complication; M86.28 Subacute osteomyelitis, other site | CPT/HCPCS: A9270 ==

== ENCOUNTER 2020-07-23 04:32 | Day surgery (SDC) | payer MEDICARE | END 2020-07-23 22:55 | disposition home or self-care (01) | LOC: WOUND 04:32 | DX: E11.621 Type 2 diabetes mellitus with foot ulcer (principal); L97.529 Non-pressure chronic ulcer of other part of left foot with unspecified severity; L89.152 Pressure ulcer of sacral region, stage 2; L89.892 Pressure ulcer of other site, stage 2; L89.891 Pressure ulcer of other site, stage 1; E11.622 Type 2 diabetes mellitus with other skin ulcer; E11.49 Type 2 diabetes mellitus with other diabetic neurological complication; M86.28 Subacute osteomyelitis, other site | CPT/HCPCS: A9270 ==

== ENCOUNTER 2020-07-28 00:33 | Day surgery (SDC) | payer MEDICARE | END 2020-07-28 22:58 | disposition home or self-care (01) | LOC: WOUND 00:33 | DX: E11.621 Type 2 diabetes mellitus with foot ulcer (principal); L97.422 Non-pressure chronic ulcer of left heel and midfoot with fat layer exposed; L97.411 Non-pressure chronic ulcer of right heel and midfoot limited to breakdown of skin; E11.622 Type 2 diabetes mellitus with other skin ulcer; E11.49 Type 2 diabetes mellitus with other diabetic neurological complication; M86.28 Subacute osteomyelitis, other site; I10 Essential (primary) hypertension; E78.5 Hyperlipidemia, unspecified; Z85.528 Personal history of other malignant neoplasm of kidney; Z88.1 Allergy status to other antibiotic agents; Z91.040 Latex allergy status | CPT/HCPCS: A9270 ==

== ENCOUNTER 2020-08-04 00:23 | Day surgery (SDC) | payer MEDICARE | END 2020-08-04 23:14 | disposition home or self-care (01) | LOC: WOUND 00:23 | DX: E11.621 Type 2 diabetes mellitus with foot ulcer (principal); L97.425 Non-pressure chronic ulcer of left heel and midfoot with muscle involvement without evidence of necrosis; L97.529 Non-pressure chronic ulcer of other part of left foot with unspecified severity; L97.419 Non-pressure chronic ulcer of right heel and midfoot with unspecified severity; E11.622 Type 2 diabetes mellitus with other skin ulcer; E11.49 Type 2 diabetes mellitus with other diabetic neurological complication; M86.28 Subacute osteomyelitis, other site | CPT/HCPCS: A9270 ==

== ENCOUNTER 2020-08-11 00:34 | Day surgery (SDC) | payer MEDICARE | END 2020-08-12 02:19 | disposition home or self-care (01) | LOC: WOUND 00:34 | DX: E11.621 Type 2 diabetes mellitus with foot ulcer (principal); L97.422 Non-pressure chronic ulcer of left heel and midfoot with fat layer exposed; L97.522 Non-pressure chronic ulcer of other part of left foot with fat layer exposed; E11.622 Type 2 diabetes mellitus with other skin ulcer; E11.49 Type 2 diabetes mellitus with other diabetic neurological complication; M86.28 Subacute osteomyelitis, other site; I10 Essential (primary) hypertension; E78.5 Hyperlipidemia, unspecified | CPT/HCPCS: A9270 ==

== ENCOUNTER 2020-08-18 00:30 | Day surgery (SDC) | payer MEDICARE | END 2020-08-18 23:33 | disposition home or self-care (01) | LOC: WOUND 00:30 | DX: E11.621 Type 2 diabetes mellitus with foot ulcer (principal); L97.425 Non-pressure chronic ulcer of left heel and midfoot with muscle involvement without evidence of necrosis; L97.412 Non-pressure chronic ulcer of right heel and midfoot with fat layer exposed; L97.529 Non-pressure chronic ulcer of other part of left foot with unspecified severity; E11.49 Type 2 diabetes mellitus with other diabetic neurological complication; I10 Essential (primary) hypertension; E78.5 Hyperlipidemia, unspecified; Z85.528 Personal history of other malignant neoplasm of kidney; Z89.422 Acquired absence of other left toe(s) | CPT/HCPCS: A9270 ==

== ENCOUNTER 2020-09-01 07:00 | Day surgery (SDC) | payer MEDICARE | END 2020-09-01 23:00 | disposition home or self-care (01) | LOC: WOUND 07:00 | DX: E11.621 Type 2 diabetes mellitus with foot ulcer (principal); L97.422 Non-pressure chronic ulcer of left heel and midfoot with fat layer exposed; L97.522 Non-pressure chronic ulcer of other part of left foot with fat layer exposed; L97.419 Non-pressure chronic ulcer of right heel and midfoot with unspecified severity; E11.622 Type 2 diabetes mellitus with other skin ulcer; E11.59 Type 2 diabetes mellitus with other circulatory complications; M86.28 Subacute osteomyelitis, other site; I10 Essential (primary) hypertension; E78.5 Hyperlipidemia, unspecified | CPT/HCPCS: A9270 ==

== ENCOUNTER 2020-09-15 02:40 | Day surgery (SDC) | payer MEDICARE | END 2020-09-15 23:04 | disposition home or self-care (01) | LOC: WOUND 02:40 | DX: E11.621 Type 2 diabetes mellitus with foot ulcer (principal); L97.522 Non-pressure chronic ulcer of other part of left foot with fat layer exposed; L97.422 Non-pressure chronic ulcer of left heel and midfoot with fat layer exposed; E11.49 Type 2 diabetes mellitus with other diabetic neurological complication; M86.28 Subacute osteomyelitis, other site; I10 Essential (primary) hypertension; E78.5 Hyperlipidemia, unspecified; Z85.528 Personal history of other malignant neoplasm of kidney; Z88.1 Allergy status to other antibiotic agents; Z88.8 Allergy status to other drugs, medicaments and biological substances; Z91.040 Latex allergy status | CPT/HCPCS: A9270; G0463 ==

== ENCOUNTER 2020-09-29 00:09 | Day surgery (SDC) | payer MEDICARE | END 2020-09-29 22:54 | disposition home or self-care (01) | LOC: WOUND 00:09 | DX: E11.621 Type 2 diabetes mellitus with foot ulcer (principal); L97.422 Non-pressure chronic ulcer of left heel and midfoot with fat layer exposed; L97.522 Non-pressure chronic ulcer of other part of left foot with fat layer exposed; E11.49 Type 2 diabetes mellitus with other diabetic neurological complication; E11.69 Type 2 diabetes mellitus with other specified complication; M86.28 Subacute osteomyelitis, other site; I10 Essential (primary) hypertension; E78.5 Hyperlipidemia, unspecified; Z85.528 Personal history of other malignant neoplasm of kidney; Z88.8 Allergy status to other drugs, medicaments and biological substances; Z88.1 Allergy status to other antibiotic agents; Z91.02 Food additives allergy status | CPT/HCPCS: A9270; G0463 ==

== ENCOUNTER 2020-10-13 02:13 | Day surgery (SDC) | payer MEDICARE | END 2020-10-13 23:25 | disposition home or self-care (01) | LOC: WOUND 02:13 | DX: E11.621 Type 2 diabetes mellitus with foot ulcer (principal); L97.422 Non-pressure chronic ulcer of left heel and midfoot with fat layer exposed; L97.529 Non-pressure chronic ulcer of other part of left foot with unspecified severity; E11.40 Type 2 diabetes mellitus with diabetic neuropathy, unspecified; E11.622 Type 2 diabetes mellitus with other skin ulcer; E11.49 Type 2 diabetes mellitus with other diabetic neurological complication; M86.28 Subacute osteomyelitis, other site; E78.5 Hyperlipidemia, unspecified; I10 Essential (primary) hypertension | CPT/HCPCS: A9270; G0463 ==

== ENCOUNTER → 2020-10-15 | Outpatient (CLI) | payer MEDICARE | LOC: LAB HH 14:45 → LAB SHORT 14:45 | DX: N39.0 Urinary tract infection, site not specified (principal); Z91.048 Other nonmedicinal substance allergy status; Z88.1 Allergy status to other antibiotic agents; Z91.040 Latex allergy status; Z91.018 Allergy to other foods; Z91.041 Radiographic dye allergy status | CPT/HCPCS: 87077; 87086; 87186 ==

== ENCOUNTER 2020-10-29 02:17 | Day surgery (SDC) | payer MEDICARE | END 2020-10-29 23:46 | disposition home or self-care (01) | LOC: WOUND 02:17 | DX: Z09 Encounter for follow-up examination after completed treatment for conditions other than malignant neoplasm (principal); E11.69 Type 2 diabetes mellitus with other specified complication; M86.28 Subacute osteomyelitis, other site; E11.49 Type 2 diabetes mellitus with other diabetic neurological complication; E11.622 Type 2 diabetes mellitus with other skin ulcer; I10 Essential (primary) hypertension; E78.5 Hyperlipidemia, unspecified; Z85.528 Personal history of other malignant neoplasm of kidney | CPT/HCPCS: G0463 ==

== ENCOUNTER → 2021-01-01 | Outpatient (CLI) | payer MEDICARE ==
[2021-01-01 18:59] LABS: Source, Urine Catheter
[2021-01-01 19:59] LABS: Appearance, Urine Hazy (Clear); Bilirubin, Urine Neg (Neg); Blood, Urine 4+ (Neg); Glucose Qualitative, Urine Neg (Neg); Ketones, Urine Neg (Neg); Leukocyte Esterase, Urine 3+ (Neg); Nitrite, Urine Neg (Neg); Protein, Urine 1+ (Neg); Urobilinogen, Urine NORM (Normal)
[2021-01-01 20:06] LABS: Color, Urine Pale Yellow (P-Yellow)
[2021-01-01 20:08] LABS: White Blood Cells, Urine 25-50 /hpf (0-5)
[2021-01-01 20:10] LABS: Amorphous Light (0-Heavy); Bacteria Many /hpf; Squamous Epithelial Cells Few /hpf (Few)
== END | disposition home or self-care (01) ==
LOC: LAB 15:02 → LAB HH 15:02
PROVIDERS: Family Medicine
DX: N39.0 Urinary tract infection, site not specified (principal)
CPT/HCPCS: 81001; 87077; 87086; 87186

== ENCOUNTER → 2021-01-19 | Outpatient (CLI) | payer MEDICARE ==
[2021-01-19 20:14] LABS: Bilirubin, Urine Neg (Neg); Blood, Urine 4+ (Neg); Glucose Qualitative, Urine Neg (Neg); Ketones, Urine Neg (Neg); Leukocyte Esterase, Urine 3+ (Neg); Nitrite, Urine Neg (Neg); Protein, Urine Neg (Neg); Urobilinogen, Urine NORM (Normal)
[2021-01-19 20:44] LABS: Appearance, Urine Clear (Clear); Color, Urine Pale Yellow (P-Yellow)
[2021-01-19 20:45] LABS: Bacteria Mod /hpf; Squamous Epithelial Cells Not Seen /hpf (Few)
== END | disposition home or self-care (01) ==
LOC: LAB HH 18:58 → LAB SHORT 18:58 → LAB 18:58
PROVIDERS: Family Medicine
DX: N39.0 Urinary tract infection, site not specified (principal)
CPT/HCPCS: 81001; 87086

== ENCOUNTER → 2021-02-03 | Outpatient (CLI) | payer MEDICARE ==
[2021-02-03 13:37] LABS: Source, Urine Catheter
[2021-02-03 15:41] LABS: Appearance, Urine Turbid (Clear); Bilirubin, Urine Neg (Neg); Blood, Urine 4+ (Neg); Glucose Qualitative, Urine Neg (Neg); Ketones, Urine Neg (Neg); Leukocyte Esterase, Urine 3+ (Neg); Nitrite, Urine Neg (Neg); Protein, Urine 2+ (Neg); Specific Gravity, Urine 1.015 (1.003-1.022); Urobilinogen, Urine NORM (Normal)
[2021-02-03 16:03] LABS: Color, Urine Pale Yellow (P-Yellow)
[2021-02-03 16:05] LABS: White Blood Cells, Urine TNTC /hpf (0-5)
[2021-02-03 16:06] LABS: Bacteria Many /hpf; Red Blood Cells, Urine 25-50 /hpf (0-2); Renal Epithelial Rare /hpf (0-Rare); Transitional Epithelial Cells Few /hpf (0-Rare)
[2021-02-03 16:07] LABS: Squamous Epithelial Cells Rare /hpf (Few)
== END | disposition home or self-care (01) ==
LOC: LAB HH 12:30 → LAB 12:30
PROVIDERS: Family Medicine
DX: N39.0 Urinary tract infection, site not specified (principal)
CPT/HCPCS: 81001; 87077; 87086; 87186

== ENCOUNTER → 2021-02-23 | Outpatient (CLI) | payer MEDICARE ==
[2021-02-23 15:59] LABS: Appearance, Urine Clear (Clear); Bilirubin, Urine Neg (Neg); Blood, Urine 4+ (Neg); Color, Urine Yellow (P-Yellow); Glucose Qualitative, Urine Neg (Neg); Ketones, Urine Neg (Neg); Leukocyte Esterase, Urine 3+ (Neg); Nitrite, Urine Neg (Neg); Protein, Urine 1+ (Neg); Specific Gravity, Urine 1.015 (1.003-1.022); Urobilinogen, Urine NORM (Normal)
[2021-02-23 16:11] LABS: Amorphous Light (0-Heavy); Bacteria Mod /hpf; Red Blood Cells, Urine 25-50 /hpf (0-2); Squamous Epithelial Cells Few /hpf (Few)
[2021-02-23 16:12] LABS: RBC Cast Rare /lpf (0); WBC Cast 0-2 /lpf (0)
== END | disposition home or self-care (01) ==
LOC: LAB HH 15:17
PROVIDERS: Physician Assistant
DX: N39.0 Urinary tract infection, site not specified (principal)
CPT/HCPCS: 81001

== ENCOUNTER → 2021-03-14 | Outpatient (CLI) | payer MEDICARE ==
[~2021-03-14] MED LIST changes: +ALBU90OI INH; +IPRAT-ALBUT 0.5-3 ML INH; +ONDA4ODT MM; +Prednisone20 MG PO; +SULFAMETHOXAZO1 EACH PO
[2021-03-14 15:31] LABS: Bilirubin, Urine Neg (Neg); Blood, Urine 5+ (Neg); Glucose Qualitative, Urine Neg (Neg); Ketones, Urine Neg (Neg); Leukocyte Esterase, Urine 3+ (Neg); Nitrite, Urine Neg (Neg); Protein, Urine 2+ (Neg); Urobilinogen, Urine NORM (Normal)
[2021-03-14 15:45] LABS: Appearance, Urine Clear (Clear); Color, Urine Pale Yellow (P-Yellow)
[2021-03-14 15:46] LABS: Red Blood Cells, Urine 25-50 /hpf (0-2)
[2021-03-14 15:47] LABS: Amorphous Light (0-Heavy); Bacteria Mod /hpf; Mucus Light (0-Heavy); Squamous Epithelial Cells Few /hpf (Few)
== END ==
LOC: LAB 12:00 → LAB SHORT 14:59
PROVIDERS: Urology
DX: N39.0 Urinary tract infection, site not specified (principal)
CPT/HCPCS: 81001; 87077; 87086; 87186

== ENCOUNTER → 2021-04-09 | Outpatient (CLI) | payer MEDICARE ==
[~2021-04-09] MED LIST changes: -ALBU90OI INH; -IPRAT-ALBUT 0.5-3 ML INH; -ONDA4ODT MM; -Prednisone20 MG PO; -SULFAMETHOXAZO1 EACH PO
[2021-04-09 13:26] LABS: Bilirubin, Urine Neg (Neg); Blood, Urine 5+ (Neg); Glucose Qualitative, Urine Neg (Neg); Ketones, Urine Neg (Neg); Leukocyte Esterase, Urine 3+ (Neg); Nitrite, Urine Neg (Neg); Protein, Urine 3+ (Neg); Urobilinogen, Urine NORM (Normal)
[2021-04-09 13:44] LABS: Appearance, Urine Cloudy (Clear); Color, Urine Pale Yellow (P-Yellow)
[2021-04-09 13:45] LABS: Amorphous Light (0-Heavy); Bacteria Many /hpf; Red Blood Cells, Urine 25-50 /hpf (0-2); Squamous Epithelial Cells Few /hpf (Few)
[2021-04-09 13:46] LABS: Renal Epithelial Rare /hpf (0-Rare)
== END | disposition home or self-care (01) ==
LOC: LAB SHORT 11:40 → LAB HH 11:40
PROVIDERS: Urology
DX: N39.0 Urinary tract infection, site not specified (principal)
CPT/HCPCS: 81001; 87077; 87086; 87186

== ENCOUNTER 2021-05-04 08:55 | Emergency (ER) | payer MEDICARE, OTHER ==
[~2021-05-04] VITALS: Ht 165.1 cm; Wt 82.5 kg
[~2021-05-04 08:55] MED LIST changes: -CHOL10002 PO; +MULVITA PO; +ONDA4ODT MM; +SULFAMETHOXAZO1 EACH PO; -THERA1 EACH PO; -TORS10; +TORS10 PO; +VITAMIN D31000 UNI1 PO
[2021-05-04 10:18] LABS: BASOPHILS ABSOLUTE AUTO 0.03 K/mm3 (0.00-0.23); BASOPHILS PERCENT AUTO 0 % (0-2); EOSINOPHILS ABSOLUTE AUTO 0.19 K/mm3 (0.00-0.68); EOSINOPHILS PERCENT AUTO 2 % (0-6); Hematocrit 43.9 % (33.0-51.0); Hemoglobin 13.8 g/dL (11.5-16.0); IMMATURE GRAN ABSOLUTE AUTO 0.04 K/mm3 (0.00-0.10); IMMATURE GRAN PERCENT AUTO 0 % (0-1); LYMPHOCYTES ABSOLUTE AUTO 2.98 K/mm3 (0.84-5.20); LYMPHOCYTES PERCENT AUTO 27 % (21-46); MONOCYTES ABSOLUTE AUTO 0.77 K/mm3 (0.16-1.47); MONOCYTES PERCENT AUTO 7 % (4-13); Mean Corpuscular HGB 31.2 pg (26.0-34.0); Mean Corpuscular HGB Conc 31.4 g/dL (31.5-36.5); Mean Corpuscular Volume 99 fL (80-100); Mean Platelet Volume 9.8 fL (9.1-12.4); NEUTROPHILS PERCENT AUTO 63 % (41-73); Platelet Count 294 K/mm3 (150-400); RDW Coefficient Variation 13.2 % (11.7-14.2); RDW Standard Deviation 48.1 fL (35.1-46.3); Red Blood Cell Count 4.43 M/mm3 (3.80-5.20); White Blood Cell Count 10.91 K/mm3 (4.00-11.30)
[2021-05-04 10:43] LABS: Albumin, Blood 3.3 g/dL (3.4-5.0); Albumin/Globulin Ratio 0.8 (0.8-1.8); Bilirubin, Total 0.3 mg/dL (0.1-1.0); Bun/Creatinine Ratio 22.5 (12.0-20.0); Calcium, Blood 9.7 mg/dL (8.5-10.1); Creatinine, Blood 1.11 mg/dL (0.40-1.00); Globulin, Blood 3.9 g/dL (2.2-4.0); Potassium, Blood 3.7 mmol/L (3.5-5.5); Total Protein, Blood 7.2 g/dL (6.4-8.2)
[2021-05-04] MEDS ORDERED: ALBU90OI INH (11:53)
[2021-05-04] MEDS ORDERED: Prednisone20 MG PO (11:53)
[2021-05-04] MEDS ORDERED: IPRAT-ALBUT 0.5-3 ML INH (11:53)
[2021-06-20] MEDS ORDERED: LEVFLO500 PO (11:31)
[2021-06-26] MEDS ORDERED: BUTENAFINE HCL30 GM TOP (12:29)
[2021-06-26] MEDS ORDERED: PREMARIN CREAM VAG (12:30)
[2021-06-26] MEDS ORDERED: ESTRADIOL42.5 GM VAG (12:32)
[2021-06-26] MEDS ORDERED: GABA300 PO (12:34)
[2021-06-26] MEDS ORDERED: MYRBETRIQ50 MG PO (12:35)
[2021-06-26] MEDS ORDERED: METO100ER PO (12:35)
[2021-06-26] MEDS ORDERED: PIOG15 PO (12:37)
[2021-06-26] MEDS ORDERED: NYSTOP15 GM TOP (12:37)
[2021-06-26] MEDS ORDERED: K-TAB ER20 ME1 PO (12:38)
[2021-06-26] MEDS ORDERED: BACTRIM PO (12:41)
[2021-06-26] MEDS ORDERED: TRAM50 PO (12:41)
== END 2021-05-04 12:20 | disposition home or self-care (01) ==
LOC: ER 08:55
PROVIDERS: Family Medicine
DX: J44.9 Chronic obstructive pulmonary disease, unspecified (principal); E11.22 Type 2 diabetes mellitus with diabetic chronic kidney disease; I12.9 Hypertensive chronic kidney disease with stage 1 through stage 4 chronic kidney disease, or unspecified chronic kidney disease; N18.9 Chronic kidney disease, unspecified; Z91.040 Latex allergy status; Z88.1 Allergy status to other antibiotic agents; Z79.899 Other long term (current) drug therapy
CPT/HCPCS: 36415; 71045; 80053; 82947; 83880; 84145; 85025; 94640; 99285-25

== ENCOUNTER 2021-06-03 00:51 | Day surgery (SDC) | payer MEDICARE ==
[~2021-06-03 00:51] MED LIST changes: +ALBU90OI INH; +CHOL10002 PO; +IPRAT-ALBUT 0.5-3 ML INH; -MULVITA PO; +Prednisone20 MG PO; +THERA1 EACH PO; +TORS10; -TORS10 PO; -VITAMIN D31000 UNI1 PO
== END 2021-06-03 23:04 | disposition home or self-care (01) ==
LOC: WOUND 00:51
DX: E11.621 Type 2 diabetes mellitus with foot ulcer (principal); L97.522 Non-pressure chronic ulcer of other part of left foot with fat layer exposed; L89.892 Pressure ulcer of other site, stage 2; E11.49 Type 2 diabetes mellitus with other diabetic neurological complication; E11.51 Type 2 diabetes mellitus with diabetic peripheral angiopathy without gangrene; I87.2 Venous insufficiency (chronic) (peripheral); I10 Essential (primary) hypertension; E78.5 Hyperlipidemia, unspecified; J45.909 Unspecified asthma, uncomplicated; M19.90 Unspecified osteoarthritis, unspecified site; Z85.53 Personal history of malignant neoplasm of renal pelvis; Z87.19 Personal history of other diseases of the digestive system; Z88.1 Allergy status to other antibiotic agents; Z91.040 Latex allergy status; Z88.8 Allergy status to other drugs, medicaments and biological substances; Z91.048 Other nonmedicinal substance allergy status
CPT/HCPCS: G0463

== ENCOUNTER 2021-06-07 13:12 | Emergency (ER) | payer MEDICARE ==
[~2021-06-07] VITALS: Ht 165.1 cm; Wt 78.0 kg
[2021-06-07 14:36] LABS: BASOPHILS ABSOLUTE AUTO 0.03 K/mm3 (0.00-0.23); BASOPHILS PERCENT AUTO 0 % (0-2); EOSINOPHILS ABSOLUTE AUTO 0.31 K/mm3 (0.00-0.68); EOSINOPHILS PERCENT AUTO 3 % (0-6); Hemoglobin 12.8 g/dL (11.5-16.0); IMMATURE GRAN ABSOLUTE AUTO 0.02 K/mm3 (0.00-0.10); IMMATURE GRAN PERCENT AUTO 0 % (0-1); LYMPHOCYTES ABSOLUTE AUTO 2.58 K/mm3 (0.84-5.20); LYMPHOCYTES PERCENT AUTO 27 % (21-46); MONOCYTES ABSOLUTE AUTO 0.95 K/mm3 (0.16-1.47); MONOCYTES PERCENT AUTO 10 % (4-13); Mean Corpuscular HGB 30.6 pg (26.0-34.0); Mean Corpuscular HGB Conc 31.2 g/dL (31.5-36.5); Mean Corpuscular Volume 98 fL (80-100); NEUTROPHILS ABSOLUTE AUTO 5.55 K/mm3 (1.96-9.15); NEUTROPHILS PERCENT AUTO 59 % (41-73); Platelet Count 320 K/mm3 (150-400); RDW Coefficient Variation 13.7 % (11.7-14.2); RDW Standard Deviation 49.4 fL (35.1-46.3); Red Blood Cell Count 4.18 M/mm3 (3.80-5.20); White Blood Cell Count 9.44 K/mm3 (4.00-11.30)
[2021-06-07 14:47] LABS: Albumin, Blood 3.3 g/dL (3.4-5.0); Albumin/Globulin Ratio 0.9 (0.8-1.8); Bilirubin, Total 0.2 mg/dL (0.1-1.0); Calcium, Blood 9.5 mg/dL (8.5-10.1); Creatinine, Blood 1.26 mg/dL (0.40-1.00); Globulin, Blood 3.5 g/dL (2.2-4.0); Potassium, Blood 3.9 mmol/L (3.5-5.5); Total Protein, Blood 6.8 g/dL (6.4-8.2)
== END 2021-06-07 15:25 | disposition home or self-care (01) ==
LOC: ER 13:12
PROVIDERS: Physician Assistant
DX: N93.9 Abnormal uterine and vaginal bleeding, unspecified (principal); E11.40 Type 2 diabetes mellitus with diabetic neuropathy, unspecified; I12.9 Hypertensive chronic kidney disease with stage 1 through stage 4 chronic kidney disease, or unspecified chronic kidney disease; E11.22 Type 2 diabetes mellitus with diabetic chronic kidney disease; N18.9 Chronic kidney disease, unspecified; I48.91 Unspecified atrial fibrillation; J44.9 Chronic obstructive pulmonary disease, unspecified; Z86.73 Personal history of transient ischemic attack (TIA), and cerebral infarction without residual deficits; Z88.1 Allergy status to other antibiotic agents; Z91.048 Other nonmedicinal substance allergy status; Z91.040 Latex allergy status; Z91.018 Allergy to other foods; Z79.899 Other long term (current) drug therapy
CPT/HCPCS: 36415; 80053; 85025; 93005; 93010; 99284-25

== ENCOUNTER → 2021-06-11 | Outpatient (CLI) | payer MEDICARE ==
[2021-06-12 13:00] LABS: Candida species (DNA Probe) Negative (NEGATIVE); G. vaginalis (DNA Probe) Negative (NEGATIVE); T. vaginalis (DNA Probe) Negative (NEGATIVE)
== END | disposition home or self-care (01) ==
LOC: LAB SHORT 15:35 → LAB 15:35
PROVIDERS: Family Medicine
DX: N77.1 Vaginitis, vulvitis and vulvovaginitis in diseases classified elsewhere (principal)
CPT/HCPCS: 87480; 87510; 87660

== ENCOUNTER 2021-06-17 01:03 | Day surgery (SDC) | payer MEDICARE | END 2021-06-17 22:42 | disposition home or self-care (01) | LOC: WOUND 01:03 | DX: E11.621 Type 2 diabetes mellitus with foot ulcer (principal); L97.522 Non-pressure chronic ulcer of other part of left foot with fat layer exposed; L89.899 Pressure ulcer of other site, unspecified stage; E11.51 Type 2 diabetes mellitus with diabetic peripheral angiopathy without gangrene; I87.2 Venous insufficiency (chronic) (peripheral); E11.40 Type 2 diabetes mellitus with diabetic neuropathy, unspecified; I10 Essential (primary) hypertension; E78.5 Hyperlipidemia, unspecified; Z88.1 Allergy status to other antibiotic agents; Z91.040 Latex allergy status | CPT/HCPCS: A9270; G0463 ==

== ENCOUNTER 2021-06-26 14:38 | Emergency (ER) | payer MEDICARE ==
[~2021-06-26] VITALS: Ht 165.1 cm; Wt 82.5 kg
[~2021-06-26 14:38] MED LIST changes: +BACTRIM PO; +BUTENAFINE HCL30 GM TOP; +ESTRADIOL42.5 GM VAG; +K-TAB ER20 ME1 PO; +LEVFLO500 PO; +NYSTOP15 GM TOP; +PREMARIN CREAM VAG
== END 2021-06-26 16:35 | disposition home or self-care (01) ==
LOC: ER 14:38
DX: E11.51 Type 2 diabetes mellitus with diabetic peripheral angiopathy without gangrene (principal); E11.621 Type 2 diabetes mellitus with foot ulcer; L97.529 Non-pressure chronic ulcer of other part of left foot with unspecified severity; L97.429 Non-pressure chronic ulcer of left heel and midfoot with unspecified severity; I12.9 Hypertensive chronic kidney disease with stage 1 through stage 4 chronic kidney disease, or unspecified chronic kidney disease; E11.22 Type 2 diabetes mellitus with diabetic chronic kidney disease; N18.9 Chronic kidney disease, unspecified; E11.40 Type 2 diabetes mellitus with diabetic neuropathy, unspecified; J44.9 Chronic obstructive pulmonary disease, unspecified; I48.91 Unspecified atrial fibrillation; Z95.0 Presence of cardiac pacemaker; Z79.899 Other long term (current) drug therapy; Z79.01 Long term (current) use of anticoagulants; Z79.84 Long term (current) use of oral hypoglycemic drugs; Z79.52 Long term (current) use of systemic steroids; Z86.73 Personal history of transient ischemic attack (TIA), and cerebral infarction without residual deficits; Z88.1 Allergy status to other antibiotic agents; Z91.040 Latex allergy status; Z88.8 Allergy status to other drugs, medicaments and biological substances; Z91.018 Allergy to other foods; Z91.09 Other allergy status, other than to drugs and biological substances
CPT/HCPCS: 99283

== ENCOUNTER 2021-06-29 08:12 | Day surgery (SDC) | payer MEDICARE ==
[~2021-06-29] VITALS: Ht 165.1 cm; Wt 82.7 kg
--- NOTE | 2021-06-29 09:20 | NUR ---
CALL LIGHT IN REACH.
--- NOTE | 2021-06-29 13:17 | NUR ---
SLIGHT HEMATOMA NOTED AT RIGHT FEMORAL GROIN SITE. MANDY RTR APPLIED MANUAL PRESSURE TO RIGHT FEMORAL GROIN SITE FOR 10 MIN. NEW TEGADERM PLACED OVER RIGHT FEMORAL SITE AND HEMATOMA HAS BEED REDUCED. PT DENIES SHARP BACK PAIN.CALL LIGHT IN REACH AND PT'S SON IN ROOM.
--- NOTE | 2021-06-29 13:39 | NUR ---
RIGHT FEMORAL GROIN SITE SOFT WITH NO HEMATOMA, NO PULSATILE BLEEDING AND INTACT DRESSING. DISCHARGE INSTRUCTIONS REVIEWED WITH PT AND HER SON; ALL QUESTIONS ANSWERED. CALL LIGHT IN REACH.
--- NOTE | 2021-06-29 14:49 | NUR ---
NO CHANGES TO R FEM GROIN SITE. 20 G IV DISCONTINUED FROM RIGHT AC WITH INTACT CANNULA. PT ESCORTED OUT VIA WHEELCHAIR ESCORT.
== END 2021-06-29 14:45 | disposition home or self-care (01) ==
LOC: MHTC 08:12
DX: E11.52 Type 2 diabetes mellitus with diabetic peripheral angiopathy with gangrene (principal); I70.223 Atherosclerosis of native arteries of extremities with rest pain, bilateral legs; I96 Gangrene, not elsewhere classified; E11.621 Type 2 diabetes mellitus with foot ulcer; L97.509 Non-pressure chronic ulcer of other part of unspecified foot with unspecified severity; I12.9 Hypertensive chronic kidney disease with stage 1 through stage 4 chronic kidney disease, or unspecified chronic kidney disease; E11.22 Type 2 diabetes mellitus with diabetic chronic kidney disease; N18.9 Chronic kidney disease, unspecified; E78.5 Hyperlipidemia, unspecified; Z91.040 Latex allergy status; Z91.018 Allergy to other foods; Z88.8 Allergy status to other drugs, medicaments and biological substances; Z91.048 Other nonmedicinal substance allergy status
CPT/HCPCS: 37224; 37229; 37232; 37233; 75716; 75774; 76937; 82947; 99152; 99153; C1714; C1725; C1760; C1769; C1887; C1894; J1644; J2250; J3010; J7030; J7040; Q9967

== ENCOUNTER 2021-07-01 02:18 | Day surgery (SDC) | payer MEDICARE | END 2021-07-01 23:09 | disposition home or self-care (01) | LOC: WOUND 02:18 | DX: E11.621 Type 2 diabetes mellitus with foot ulcer (principal); L97.522 Non-pressure chronic ulcer of other part of left foot with fat layer exposed; E11.59 Type 2 diabetes mellitus with other circulatory complications; E11.49 Type 2 diabetes mellitus with other diabetic neurological complication; E11.51 Type 2 diabetes mellitus with diabetic peripheral angiopathy without gangrene; I87.2 Venous insufficiency (chronic) (peripheral); I10 Essential (primary) hypertension; E78.5 Hyperlipidemia, unspecified | CPT/HCPCS: A9270 ==

== ENCOUNTER 2021-07-15 01:00 | Day surgery (SDC) | payer MEDICARE | END 2021-07-15 23:09 | disposition home or self-care (01) | LOC: WOUND 01:00 | DX: E11.621 Type 2 diabetes mellitus with foot ulcer (principal); L97.522 Non-pressure chronic ulcer of other part of left foot with fat layer exposed; E11.59 Type 2 diabetes mellitus with other circulatory complications; E11.49 Type 2 diabetes mellitus with other diabetic neurological complication; E11.51 Type 2 diabetes mellitus with diabetic peripheral angiopathy without gangrene; I87.2 Venous insufficiency (chronic) (peripheral); I10 Essential (primary) hypertension; E78.5 Hyperlipidemia, unspecified | CPT/HCPCS: A9270 ==

== ENCOUNTER 2021-07-29 01:18 | Day surgery (SDC) | payer MEDICARE | END 2021-08-03 23:33 | disposition home or self-care (01) | LOC: WOUND 01:18 | DX: E11.621 Type 2 diabetes mellitus with foot ulcer (principal); L97.522 Non-pressure chronic ulcer of other part of left foot with fat layer exposed; E11.59 Type 2 diabetes mellitus with other circulatory complications; E11.49 Type 2 diabetes mellitus with other diabetic neurological complication; E11.51 Type 2 diabetes mellitus with diabetic peripheral angiopathy without gangrene; I87.2 Venous insufficiency (chronic) (peripheral); I10 Essential (primary) hypertension; E78.5 Hyperlipidemia, unspecified | CPT/HCPCS: A9270 ==

== ENCOUNTER → 2021-08-07 | Outpatient (CLI) | payer MEDICARE ==
[2021-08-07 15:18] LABS: Source, Urine Voided
[2021-08-07 16:00] LABS: Appearance, Urine Hazy (Clear); Bilirubin, Urine Neg (Neg); Blood, Urine 5+ (Neg); Glucose Qualitative, Urine Neg (Neg); Ketones, Urine Neg (Neg); Leukocyte Esterase, Urine 3+ (Neg); Nitrite, Urine Neg (Neg); Protein, Urine 2+ (Neg); Urobilinogen, Urine NORM (Normal)
[2021-08-07 16:14] LABS: Color, Urine Pale Yellow (P-Yellow)
[2021-08-07 16:15] LABS: White Blood Cells, Urine TNTC /hpf (0-5)
[2021-08-07 16:16] LABS: Bacteria Many /hpf; Renal Epithelial Rare /hpf (0-Rare); Squamous Epithelial Cells Few /hpf (Few); Transitional Epithelial Cells Few /hpf (0-Rare)
== END | disposition home or self-care (01) ==
LOC: LAB HH 15:16
PROVIDERS: Urology
DX: N39.0 Urinary tract infection, site not specified (principal)
CPT/HCPCS: 81001; 87077; 87086; 87186

== ENCOUNTER 2021-08-12 00:28 | Day surgery (SDC) | payer MEDICARE | END 2021-08-12 22:42 | disposition home or self-care (01) | LOC: WOUND 00:28 | DX: E11.621 Type 2 diabetes mellitus with foot ulcer (principal); L97.522 Non-pressure chronic ulcer of other part of left foot with fat layer exposed; E11.59 Type 2 diabetes mellitus with other circulatory complications; E11.49 Type 2 diabetes mellitus with other diabetic neurological complication; I73.9 Peripheral vascular disease, unspecified; I87.2 Venous insufficiency (chronic) (peripheral); I10 Essential (primary) hypertension; E78.5 Hyperlipidemia, unspecified | CPT/HCPCS: A9270; G0463 ==

== ENCOUNTER 2021-08-22 08:44 | Observation (INO) | payer MEDICARE, OTHER ==
[~2021-08-22] VITALS: Ht 165.1 cm; Wt 86.2 kg
[~2021-08-22 08:44] MED LIST changes: -CHOL10002 PO; +MULVITA PO; -THERA1 EACH PO; -TORS10; +TORS10 PO; +VITAMIN D31000 UNI1 PO
[2021-08-22 11:11] LABS: BASOPHILS ABSOLUTE AUTO 0.04 K/mm3 (0.00-0.23); BASOPHILS PERCENT AUTO 0 % (0-2); EOSINOPHILS ABSOLUTE AUTO 0.91 K/mm3 (0.00-0.68); EOSINOPHILS PERCENT AUTO 7 % (0-6); Hematocrit 39.8 % (33.0-51.0); Hemoglobin 12.4 g/dL (11.5-16.0); IMMATURE GRAN ABSOLUTE AUTO 0.04 K/mm3 (0.00-0.10); IMMATURE GRAN PERCENT AUTO 0 % (0-1); LYMPHOCYTES ABSOLUTE AUTO 3.24 K/mm3 (0.84-5.20); LYMPHOCYTES PERCENT AUTO 25 % (21-46); MONOCYTES ABSOLUTE AUTO 1.12 K/mm3 (0.16-1.47); MONOCYTES PERCENT AUTO 9 % (4-13); Mean Corpuscular HGB 30.2 pg (26.0-34.0); Mean Corpuscular HGB Conc 31.2 g/dL (31.5-36.5); Mean Corpuscular Volume 97 fL (80-100); NEUTROPHILS ABSOLUTE AUTO 7.65 K/mm3 (1.96-9.15); NEUTROPHILS PERCENT AUTO 59 % (41-73); Platelet Count 256 K/mm3 (150-400); RDW Coefficient Variation 14.6 % (11.7-14.2); RDW Standard Deviation 52.5 fL (35.1-46.3)
[2021-08-22 11:28] LABS: Albumin, Blood 3.4 g/dL (3.4-5.0); Albumin/Globulin Ratio 0.9 (0.8-1.8); Bilirubin, Total 0.3 mg/dL (0.1-1.0); Bun/Creatinine Ratio 22.4 (12.0-20.0); Calcium, Blood 9.8 mg/dL (8.5-10.1); Creatinine, Blood 1.07 mg/dL (0.40-1.00); Globulin, Blood 3.6 g/dL (2.2-4.0); Potassium, Blood 3.7 mmol/L (3.5-5.5)
[2021-08-22 13:40] LABS: Adenovirus F 40/41 Not Detected (NOT DETECT); Astrovirus Not Detected (NOT DETECT); Campylobacter Sp Not Detected (NOT DETECT); Cryptosporidium Not Detected (NOT DETECT); Cyclospora Cayetanensis Not Detected (NOT DETECT); E. Coli O157 Not Detected (NOT DETECT); Entamoeba Histolytica Not Detected (NOT DETECT); Enteroaggregative E. coli-EAEC Not Detected (NOT DETECT); Enteropathogenic E. coli-EPEC Not Detected (NOT DETECT); Enterotoxigenic E. coli-ETEC Not Detected (NOT DETECT); Giardia Lamblia Not Detected (NOT DETECT); Norovirus GI/GII Not Detected (NOT DETECT); Plesiomonas Shigelloides Not Detected (NOT DETECT); Rotavirus A Not Detected (NOT DETECT); Salmonella Sp Not Detected (NOT DETECT); Sapovirus Detected (NOT DETECT); Shiga Toxin-prod E. coli-STEC Not Detected (NOT DETECT); Shigella/Enteroin E. coli-EIEC Not Detected (NOT DETECT); Vibrio Cholerae Not Detected (NOT DETECT); Vibrio Sp Not Detected (NOT DETECT); Yersinia Enterocolitica Not Detected (NOT DETECT)
[2021-08-22 17:34] LABS: Influenza A, PCR NEGATIVE (NEGATIVE); Influenza B, PCR NEGATIVE (NEGATIVE); Resp Syncytial Virus, PCR NEGATIVE (NEGATIVE); SARS-Cov-2 (COVID-19) PCR, MMC NEGATIVE (NEGATIVE)
[2021-08-22 18:56] LABS: Source, Urine Straight Cath
[2021-08-22 19:12] LABS: Appearance, Urine Clear (Clear); Bilirubin, Urine Neg (Neg); Blood, Urine 3+ (Neg); Color, Urine Yellow (P-Yellow); Glucose Qualitative, Urine Neg (Neg); Ketones, Urine Neg (Neg); Leukocyte Esterase, Urine 3+ (Neg); Nitrite, Urine Neg (Neg); Protein, Urine Neg (Neg); Specific Gravity, Urine 1.015 (1.003-1.022); Urobilinogen, Urine NORM (Normal)
[2021-08-22 19:26] LABS: Bacteria Mod /hpf; Mucus Light (0-Heavy); Squamous Epithelial Cells Rare /hpf (Few); Yeast/Fungi Urine Many /hpf
--- NOTE | 2021-08-22 20:05 | NUR ---
ADMIT PT NEW ADMIT TO RM 335, ARRIVED ROUGHLY 1949. DX C DIFF. HAS BEEN HAVING LOOSE STOOL FOR 2 WEEKS. ORIENTED TO RM & CALL LIGHT. WILL MONITOR.
[2021-08-22] MEDS ORDERED: TORS10 PO (21:21)
[2021-08-22] MEDS ORDERED: XARELTO15 M1 PO (21:24)
[2021-08-22] MEDS ORDERED: SULFAMETHOXAZO1 EACH PO (21:25)
[2021-08-23 05:57] LABS: BASOPHILS ABSOLUTE AUTO 0.04 K/mm3 (0.00-0.23); BASOPHILS PERCENT AUTO 0 % (0-2); EOSINOPHILS ABSOLUTE AUTO 0.63 K/mm3 (0.00-0.68); EOSINOPHILS PERCENT AUTO 6 % (0-6); Hematocrit 38.9 % (33.0-51.0); Hemoglobin 11.9 g/dL (11.5-16.0); IMMATURE GRAN ABSOLUTE AUTO 0.02 K/mm3 (0.00-0.10); IMMATURE GRAN PERCENT AUTO 0 % (0-1); LYMPHOCYTES ABSOLUTE AUTO 2.75 K/mm3 (0.84-5.20); LYMPHOCYTES PERCENT AUTO 28 % (21-46); MONOCYTES ABSOLUTE AUTO 0.81 K/mm3 (0.16-1.47); MONOCYTES PERCENT AUTO 8 % (4-13); Mean Corpuscular HGB 29.9 pg (26.0-34.0); Mean Corpuscular HGB Conc 30.6 g/dL (31.5-36.5); Mean Corpuscular Volume 98 fL (80-100); Mean Platelet Volume 10.1 fL (9.1-12.4); NEUTROPHILS ABSOLUTE AUTO 5.54 K/mm3 (1.96-9.15); NEUTROPHILS PERCENT AUTO 57 % (41-73); Platelet Count 258 K/mm3 (150-400); RDW Coefficient Variation 14.6 % (11.7-14.2); RDW Standard Deviation 52.3 fL (35.1-46.3); Red Blood Cell Count 3.98 M/mm3 (3.80-5.20); White Blood Cell Count 9.79 K/mm3 (4.00-11.30)
[2021-08-23 06:17] LABS: Albumin, Blood 3.2 g/dL (3.4-5.0); Albumin/Globulin Ratio 0.9 (0.8-1.8); Bilirubin, Total 0.3 mg/dL (0.1-1.0); Bun/Creatinine Ratio 23.6 (12.0-20.0); Calcium, Blood 9.2 mg/dL (8.5-10.1); Creatinine, Blood 0.89 mg/dL (0.40-1.00); Globulin, Blood 3.4 g/dL (2.2-4.0); Total Protein, Blood 6.6 g/dL (6.4-8.2)
--- NOTE | 2021-08-23 06:47 | NUR ---
SHIFT SUMMARY AOX4. HR 115-120'S, OTHERWISE REST OF VSS. RT PLACED PT ON 1L O2, DOESNT WEAR ANY O2 @BASELINE. ADMITTED FOR SEPSIS, DIARRHEA FOR 2 WKS & UTI. PT HAD 1 LOOSE BM THIS SHIFT. CHRONIC SABILLON REPLACED IN ER, PATENT & DRAINING. DENIES PAIN, N/V. HAS +2 PITTING EDEMA BLE, +1 EDEMA HANDS, MOD DISTENDED ABD c TYMPANIC BT. REPORTS ORTHOPNEA. CALL LIGHT IN REACH & PT ABLE TO MAKE NEEDS KNOWN.
[2021-08-23] MEDS ORDERED: AMIT25 PO (08:01)
--- NOTE | 2021-08-23 08:07 | NUR ---
SPOKE WITH VIRI IN PHARMACY - UNABLE TO VERIFY 5 OF HER MEDS DUE TO MD ORDERS. SON ARRIVED AND BROUGHT IN MEDICATIONS, HOME LIST UPDATED. BP AND HR ELEVATED, PT SAID SHE WAS NOT UNCOMFORTABLE AT THE TIME OF VS MONITORING. DR Eboni CHURCHILL CALLED AND UPDATED. WILL GIVE AM BP MEDS, MD SAID SHE WILL PUT IN FOR PRN BP MED. STOP IVF ORDER FROM DR CHURCHILL. DR CHURCHILL SAID SHE WILL REVIEW MED LIST AND NEED FOR DROPLET PRECAUTIONS.
[2021-08-23] MEDS ORDERED: VISBIOME 112.51 EACH PO ×2 (11:48→12:25)
--- NOTE | 2021-08-23 12:11 | NUR ---
O2 SAT MID 90S ON ROOM AIR. PT DOES NOT TAKE OXYGEN AT HOME.HR REMAINS ELEVATED IN THE 120S. PT SAID SHE IS NOT IN PAIN. PLAN FOR DISCHARGE. DR Eboni CHURCHILL IS AWARE OF TACHYCARDIA AND COMFORTABLE DISCHARGING HER. PT'S SON IS HERE AT BEDSIDE. HE SAID HE IS A RIVETING MACHINE OPERATOR TAPE CONTROL FOR [employer] AND LIVES WITH HER. PT HAS NO SOB OR PAIN RESTING IN BED.
--- NOTE | 2021-08-23 13:53 | NUR ---
DISCHARGED TO HOME VIA OWN WHEELCHAIR WITH HER SON AT 1345 HRS. PIV REMOVED INTACT. PT AND SON VERBALISED UNDERSTANDING OF WRITTENA DN VERBAL DISCHARGE INSTRUCTIONS. NO C/O PAIN ON DISCHARGE. NO SOB AT TIME OF DISCHARGE. 2 PERSON TRANSFER TO WHEELCHAIR WITH GAIT BELT AND WALKER.
== END 2021-08-23 13:48 | disposition home or self-care (01) ==
LOC: ER 08:44 → MEDS 18:43
PROVIDERS: Emergency Medicine; Family Medicine; ADMIT Internal Medicine
DX: A41.9 Sepsis, unspecified organism (principal); A08.4 Viral intestinal infection, unspecified; K64.9 Unspecified hemorrhoids; E11.40 Type 2 diabetes mellitus with diabetic neuropathy, unspecified; E11.22 Type 2 diabetes mellitus with diabetic chronic kidney disease; I11.9 Hypertensive heart disease without heart failure; N18.30 Chronic kidney disease, stage 3 unspecified; J44.9 Chronic obstructive pulmonary disease, unspecified; Z20.822 Contact with and (suspected) exposure to COVID-19; I48.0 Paroxysmal atrial fibrillation; Z88.1 Allergy status to other antibiotic agents; Z91.040 Latex allergy status; Z95.0 Presence of cardiac pacemaker; Z91.018 Allergy to other foods; Z91.048 Other nonmedicinal substance allergy status; Z79.01 Long term (current) use of anticoagulants; Z66 Do not resuscitate
CPT/HCPCS: 0241U; 36415; 51702; 71045; 80053; 81001; 82947; 83605; 83880; 84484; 85025; 87040; 87077; 87086; 87106; 87186; 87324; 87507; 94760; 96360; 96361; 99285-25; A9270; G0378; J7030

== ENCOUNTER 2021-08-26 08:00 | Day surgery (SDC) | payer MEDICARE ==
[~2021-08-26 08:00] MED LIST changes: +VISBIOME 112.51 EACH PO; +XARELTO15 M1 PO
== END 2021-08-26 23:59 | disposition home or self-care (01) ==
LOC: WOUND 08:00
DX: E11.621 Type 2 diabetes mellitus with foot ulcer (principal); L97.522 Non-pressure chronic ulcer of other part of left foot with fat layer exposed; I10 Essential (primary) hypertension; E78.5 Hyperlipidemia, unspecified; Z87.19 Personal history of other diseases of the digestive system; Z85.528 Personal history of other malignant neoplasm of kidney; E11.40 Type 2 diabetes mellitus with diabetic neuropathy, unspecified; E11.51 Type 2 diabetes mellitus with diabetic peripheral angiopathy without gangrene; I87.2 Venous insufficiency (chronic) (peripheral)

== ENCOUNTER → 2021-09-09 | Day surgery (SDC) | payer MEDICARE | LOC: WOUND 02:29 | DX: E11.621 Type 2 diabetes mellitus with foot ulcer (principal); L97.522 Non-pressure chronic ulcer of other part of left foot with fat layer exposed; L97.521 Non-pressure chronic ulcer of other part of left foot limited to breakdown of skin; E11.51 Type 2 diabetes mellitus with diabetic peripheral angiopathy without gangrene; I87.2 Venous insufficiency (chronic) (peripheral); E11.42 Type 2 diabetes mellitus with diabetic polyneuropathy | CPT/HCPCS: A9270 ==

== ENCOUNTER 2021-10-07 00:50 | Day surgery (SDC) | payer MEDICARE | END 2021-10-07 23:37 | disposition home or self-care (01) | LOC: WOUND 00:50 | DX: E11.621 Type 2 diabetes mellitus with foot ulcer (principal); L97.522 Non-pressure chronic ulcer of other part of left foot with fat layer exposed; E11.59 Type 2 diabetes mellitus with other circulatory complications; E11.49 Type 2 diabetes mellitus with other diabetic neurological complication; E11.51 Type 2 diabetes mellitus with diabetic peripheral angiopathy without gangrene; I87.2 Venous insufficiency (chronic) (peripheral); I10 Essential (primary) hypertension; E78.5 Hyperlipidemia, unspecified | CPT/HCPCS: A9270; G0463 ==

== ENCOUNTER 2021-10-21 03:18 | Day surgery (SDC) | payer MEDICARE | END 2021-10-21 22:45 | disposition home or self-care (01) | LOC: WOUND 03:18 | DX: L89.899 Pressure ulcer of other site, unspecified stage (principal); E11.621 Type 2 diabetes mellitus with foot ulcer; E11.51 Type 2 diabetes mellitus with diabetic peripheral angiopathy without gangrene; E11.40 Type 2 diabetes mellitus with diabetic neuropathy, unspecified; I87.2 Venous insufficiency (chronic) (peripheral); I10 Essential (primary) hypertension; E78.5 Hyperlipidemia, unspecified | CPT/HCPCS: A9270; G0463 ==

== ENCOUNTER → 2021-10-23 | Outpatient (CLI) | payer MEDICARE ==
[2021-10-23 15:22] LABS: Appearance, Urine Cloudy (Clear); Bilirubin, Urine Neg (Neg); Blood, Urine 4+ (Neg); Glucose Qualitative, Urine Neg (Neg); Ketones, Urine Neg (Neg); Leukocyte Esterase, Urine 3+ (Neg); Nitrite, Urine Neg (Neg); Protein, Urine 2+ (Neg); Urobilinogen, Urine NORM (Normal); pH, Urine 6.5 (5.0-8.0)
[2021-10-23 15:55] LABS: Color, Urine Pale Yellow (P-Yellow); Red Blood Cells, Urine TNTC /hpf (0-2); White Blood Cells, Urine TNTC /hpf (0-5)
[2021-10-23 15:56] LABS: Bacteria Many /hpf; Hyaline Casts 0-2 /lpf (0-2); Squamous Epithelial Cells Mod /hpf (Few); Transitional Epithelial Cells Rare /hpf (0-Rare); WBC Cast 0-2 /lpf (0)
== END | disposition home or self-care (01) ==
LOC: LAB SHORT 12:30 → LAB HH 12:30
PROVIDERS: Urology
DX: N39.0 Urinary tract infection, site not specified (principal)
CPT/HCPCS: 81001; 87077; 87086; 87186

== ENCOUNTER 2021-11-04 07:36 | Day surgery (SDC) | payer MEDICARE | END 2021-11-04 23:35 | disposition home or self-care (01) | LOC: WOUND 07:36 | DX: L89.899 Pressure ulcer of other site, unspecified stage (principal); E11.621 Type 2 diabetes mellitus with foot ulcer; E11.42 Type 2 diabetes mellitus with diabetic polyneuropathy; E11.51 Type 2 diabetes mellitus with diabetic peripheral angiopathy without gangrene; I87.2 Venous insufficiency (chronic) (peripheral); E78.5 Hyperlipidemia, unspecified; Z85.528 Personal history of other malignant neoplasm of kidney | CPT/HCPCS: A9270; G0463 ==

== ENCOUNTER 2021-11-06 11:02 | Emergency (ER) | payer MEDICARE ==
[~2021-11-06] VITALS: Ht 165.1 cm; Wt 87.1 kg
[2021-11-06 12:07] LABS: BASOPHILS ABSOLUTE AUTO 0.03 K/mm3 (0.00-0.23); BASOPHILS PERCENT AUTO 0 % (0-2); EOSINOPHILS ABSOLUTE AUTO 0.21 K/mm3 (0.00-0.68); EOSINOPHILS PERCENT AUTO 2 % (0-6); Hematocrit 43.1 % (33.0-51.0); Hemoglobin 13.6 g/dL (11.5-16.0); IMMATURE GRAN ABSOLUTE AUTO 0.02 K/mm3 (0.00-0.10); IMMATURE GRAN PERCENT AUTO 0 % (0-1); LYMPHOCYTES ABSOLUTE AUTO 2.56 K/mm3 (0.84-5.20); LYMPHOCYTES PERCENT AUTO 26 % (21-46); MONOCYTES ABSOLUTE AUTO 0.82 K/mm3 (0.16-1.47); MONOCYTES PERCENT AUTO 8 % (4-13); Mean Corpuscular HGB Conc 31.6 g/dL (31.5-36.5); Mean Corpuscular Volume 95 fL (80-100); Mean Platelet Volume 10.4 fL (9.1-12.4); NEUTROPHILS ABSOLUTE AUTO 6.38 K/mm3 (1.96-9.15); NEUTROPHILS PERCENT AUTO 64 % (41-73); Platelet Count 307 K/mm3 (150-400); RDW Coefficient Variation 14.4 % (11.7-14.2); RDW Standard Deviation 49.6 fL (35.1-46.3); Red Blood Cell Count 4.54 M/mm3 (3.80-5.20); White Blood Cell Count 10.02 K/mm3 (4.00-11.30)
[2021-11-06 12:22] LABS: Albumin, Blood 3.6 g/dL (3.4-5.0); Bilirubin, Total 0.2 mg/dL (0.1-1.0); Bun/Creatinine Ratio 24.8 (12.0-20.0); Calcium, Blood 9.9 mg/dL (8.5-10.1); Creatinine, Blood 1.25 mg/dL (0.40-1.00); Globulin, Blood 3.5 g/dL (2.2-4.0); Potassium, Blood 4.4 mmol/L (3.5-5.5); Total Protein, Blood 7.1 g/dL (6.4-8.2)
== END 2021-11-06 15:55 | disposition left against medical advice (07) ==
LOC: ER 11:02
PROVIDERS: Physician Assistant
DX: R31.9 Hematuria, unspecified (principal); Z79.899 Other long term (current) drug therapy; Z79.02 Long term (current) use of antithrombotics/antiplatelets; Z53.21 Procedure and treatment not carried out due to patient leaving prior to being seen by health care provider
CPT/HCPCS: 36415; 80053; 85025

== ENCOUNTER 2021-12-01 02:11 | Day surgery (SDC) | payer MEDICARE | END 2021-12-01 22:41 | disposition home or self-care (01) | LOC: WOUND 02:11 | DX: L89.899 Pressure ulcer of other site, unspecified stage (principal); E11.51 Type 2 diabetes mellitus with diabetic peripheral angiopathy without gangrene; E11.40 Type 2 diabetes mellitus with diabetic neuropathy, unspecified | CPT/HCPCS: A9270; G0463 ==

== ENCOUNTER 2021-12-16 01:46 | Day surgery (SDC) | payer MEDICARE | END 2021-12-16 22:48 | disposition home or self-care (01) | LOC: WOUND 01:46 | DX: L89.899 Pressure ulcer of other site, unspecified stage (principal); E11.51 Type 2 diabetes mellitus with diabetic peripheral angiopathy without gangrene; I87.2 Venous insufficiency (chronic) (peripheral) | CPT/HCPCS: A9270; G0463 ==

== ENCOUNTER → 2021-12-25 | Outpatient (CLI) | payer MEDICARE ==
[2021-12-25 15:12] LABS: Source, Urine Foley catheter
[2021-12-25 16:04] LABS: Appearance, Urine Cloudy (Clear); Bilirubin, Urine Neg (Neg); Blood, Urine 5+ (Neg); Glucose Qualitative, Urine Neg (Neg); Ketones, Urine Neg (Neg); Leukocyte Esterase, Urine 3+ (Neg); Nitrite, Urine Neg (Neg); Protein, Urine 1+ (Neg); Specific Gravity, Urine 1.015 (1.003-1.022); Urobilinogen, Urine NORM (Normal)
[2021-12-25 16:30] LABS: Color, Urine Pale Yellow (P-Yellow)
[2021-12-25 16:31] LABS: Bacteria Many /hpf; Red Blood Cells, Urine TNTC /hpf (0-2); Squamous Epithelial Cells Few /hpf (Few); White Blood Cells, Urine 50-100 /hpf (0-5)
[2021-12-25 16:32] LABS: Transitional Epithelial Cells Rare /hpf (0-Rare)
== END | disposition home or self-care (01) ==
LOC: LAB HH 15:10
PROVIDERS: Family Medicine
DX: N39.0 Urinary tract infection, site not specified (principal)
CPT/HCPCS: 81001; 87077; 87086; 87186

== ENCOUNTER 2021-12-30 02:26 | Day surgery (SDC) | payer MEDICARE | END 2021-12-30 23:22 | disposition home or self-care (01) | LOC: WOUND 02:26 | DX: E11.621 Type 2 diabetes mellitus with foot ulcer (principal); L97.522 Non-pressure chronic ulcer of other part of left foot with fat layer exposed; E11.51 Type 2 diabetes mellitus with diabetic peripheral angiopathy without gangrene; I87.2 Venous insufficiency (chronic) (peripheral); E11.40 Type 2 diabetes mellitus with diabetic neuropathy, unspecified; I10 Essential (primary) hypertension; E78.5 Hyperlipidemia, unspecified; Z85.528 Personal history of other malignant neoplasm of kidney | CPT/HCPCS: G0463 ==

== ENCOUNTER 2022-01-20 10:23 | Emergency (ER) | payer MEDICARE ==
[~2022-01-20] VITALS: Ht 165.1 cm; Wt 83.9 kg
[2022-01-20 12:27] LABS: BASOPHILS ABSOLUTE AUTO 0.04 K/mm3 (0.00-0.23); BASOPHILS PERCENT AUTO 0 % (0-2); EOSINOPHILS ABSOLUTE AUTO 0.12 K/mm3 (0.00-0.68); EOSINOPHILS PERCENT AUTO 1 % (0-6); Hematocrit 41.8 % (33.0-51.0); Hemoglobin 13.2 g/dL (11.5-16.0); IMMATURE GRAN ABSOLUTE AUTO 0.08 K/mm3 (0.00-0.10); IMMATURE GRAN PERCENT AUTO 1 % (0-1); LYMPHOCYTES ABSOLUTE AUTO 2.76 K/mm3 (0.84-5.20); LYMPHOCYTES PERCENT AUTO 16 % (21-46); MONOCYTES ABSOLUTE AUTO 1.43 K/mm3 (0.16-1.47); MONOCYTES PERCENT AUTO 8 % (4-13); Mean Corpuscular HGB 30.9 pg (26.0-34.0); Mean Corpuscular HGB Conc 31.6 g/dL (31.5-36.5); Mean Corpuscular Volume 98 fL (80-100); NEUTROPHILS ABSOLUTE AUTO 12.72 K/mm3 (1.96-9.15); NEUTROPHILS PERCENT AUTO 74 % (41-73); Platelet Count 293 K/mm3 (150-400); RDW Standard Deviation 54.4 fL (35.1-46.3); Red Blood Cell Count 4.27 M/mm3 (3.80-5.20); White Blood Cell Count 17.15 K/mm3 (4.00-11.30)
[2022-01-20 12:34] LABS: Albumin, Blood 3.3 g/dL (3.4-5.0); Albumin/Globulin Ratio 0.8 (0.8-1.8); Bilirubin, Total 0.4 mg/dL (0.1-1.0); Bun/Creatinine Ratio 26.1 (12.0-20.0); Calcium, Blood 9.5 mg/dL (8.5-10.1); Creatinine, Blood 1.15 mg/dL (0.40-1.00); Globulin, Blood 4.3 g/dL (2.2-4.0); Potassium, Blood 3.7 mmol/L (3.5-5.5); Total Protein, Blood 7.6 g/dL (6.4-8.2)
[2022-01-20 12:35] LABS: Influenza A, PCR NEGATIVE (NEGATIVE); Influenza B, PCR NEGATIVE (NEGATIVE); Resp Syncytial Virus, PCR NEGATIVE (NEGATIVE); SARS-Cov-2 (COVID-19) PCR, MMC NEGATIVE (NEGATIVE)
[2022-01-21] MEDS ORDERED: ONDA4ODT MM (14:25)
== END 2022-01-20 15:50 | disposition left against medical advice (07) ==
LOC: ER 10:23
PROVIDERS: Physician Assistant
DX: R19.7 Diarrhea, unspecified (principal); R05.9 Cough, unspecified; R50.9 Fever, unspecified; R53.1 Weakness; Z53.21 Procedure and treatment not carried out due to patient leaving prior to being seen by health care provider
CPT/HCPCS: 0241U; 71046; 80053; 83690; 85025

== ENCOUNTER 2022-01-22 20:52 | Inpatient (IN) | payer MEDICARE ==
[~2022-01-22] VITALS: Ht 165.1 cm; Wt 83.0 kg
[2022-01-22 21:18] LABS: BASOPHILS ABSOLUTE AUTO 0.03 K/mm3 (0.00-0.23); BASOPHILS PERCENT AUTO 0 % (0-2); EOSINOPHILS ABSOLUTE AUTO 0.12 K/mm3 (0.00-0.68); EOSINOPHILS PERCENT AUTO 1 % (0-6); Hematocrit 40.9 % (33.0-51.0); Hemoglobin 12.3 g/dL (11.5-16.0); IMMATURE GRAN ABSOLUTE AUTO 0.11 K/mm3 (0.00-0.10); IMMATURE GRAN PERCENT AUTO 1 % (0-1); LYMPHOCYTES ABSOLUTE AUTO 2.53 K/mm3 (0.84-5.20); LYMPHOCYTES PERCENT AUTO 16 % (21-46); MONOCYTES ABSOLUTE AUTO 1.37 K/mm3 (0.16-1.47); MONOCYTES PERCENT AUTO 9 % (4-13); Mean Corpuscular HGB 30.4 pg (26.0-34.0); Mean Corpuscular HGB Conc 30.1 g/dL (31.5-36.5); Mean Corpuscular Volume 101 fL (80-100); Mean Platelet Volume 9.9 fL (9.1-12.4); NEUTROPHILS ABSOLUTE AUTO 11.96 K/mm3 (1.96-9.15); NEUTROPHILS PERCENT AUTO 74 % (41-73); Platelet Count 262 K/mm3 (150-400); RDW Coefficient Variation 15.2 % (11.7-14.2); RDW Standard Deviation 57.4 fL (35.1-46.3); Red Blood Cell Count 4.05 M/mm3 (3.80-5.20); White Blood Cell Count 16.12 K/mm3 (4.00-11.30)
[2022-01-22 21:36] LABS: Albumin, Blood 2.9 g/dL (3.4-5.0); Albumin/Globulin Ratio 0.7 (0.8-1.8); Bilirubin, Total 0.3 mg/dL (0.1-1.0); Bun/Creatinine Ratio 24.8 (12.0-20.0); Calcium, Blood 9.1 mg/dL (8.5-10.1); Creatinine, Blood 1.33 mg/dL (0.40-1.00); Globulin, Blood 4.1 g/dL (2.2-4.0); Potassium, Blood 4.6 mmol/L (3.5-5.5)
[2022-01-22 22:47] LABS: Influenza A, PCR NEGATIVE (NEGATIVE); Influenza B, PCR NEGATIVE (NEGATIVE); Resp Syncytial Virus, PCR NEGATIVE (NEGATIVE); SARS-Cov-2 (COVID-19) PCR, MMC NEGATIVE (NEGATIVE)
[2022-01-23 06:12] LABS: Source, Urine Foley catheter
[2022-01-23 06:17] LABS: Appearance, Urine Clear (Clear); Bilirubin, Urine Neg (Neg); Blood, Urine 2+ (Neg); Color, Urine Yellow (P-Yellow); Glucose Qualitative, Urine Neg (Neg); Ketones, Urine Neg (Neg); Leukocyte Esterase, Urine 1+ (Neg); Nitrite, Urine Neg (Neg); Protein, Urine 1+ (Neg); Specific Gravity, Urine 1.015 (1.003-1.022); Urobilinogen, Urine NORM (Normal)
[2022-01-23 06:56] LABS: Bacteria Few /hpf; Renal Epithelial Rare /hpf (0-Rare); Squamous Epithelial Cells Rare /hpf (Few)
--- NOTE | 2022-01-23 07:23 | NUR ---
Shift Summary Pt arrived to the unit from the ER at approx 0130 with a Dx of acute respiratory failure. Pt tested negative for Covid and Influenza, the doctor wrote she likely has a viral infection. Pt has a chronic Farrell which was changed out upon arrival to the unit and a urine sample was sent to the lab. She had a fever of 100.8 in the ER and was too weak and tired to get out of bed tonight. She has a stage 1-2 pressure ulcer on her coccyx which is in the process of healing evidenced by granulation tissue, mepilex in place. She is experiencing incontinent diarrhea which is a potential problem for her pressure ulcer. She recived 1L of NS @ 75. BP was a little low tonight around 108/60. Pt was very somnolent tonight, never awaking beyond drowsy. Pleasant and cooperative with care, no acute events.
[2022-01-23] MEDS ORDERED: TORS10 PO ×2 (09:42→09:43)
[2022-01-23] MEDS ORDERED: PIOG15 PO (09:51)
[2022-01-23] MEDS ORDERED: 1/2 NS 250ml250 ML (09:52)
[2022-01-23] MEDS ORDERED: SULFAMETHOXAZO1 EACH PO (09:52)
[2022-01-23] MEDS ORDERED: Amiodarone HCl200 MG PO (09:54)
[2022-01-23 10:01] LABS: BASOPHILS ABSOLUTE AUTO 0.02 K/mm3 (0.00-0.23); BASOPHILS PERCENT AUTO 0 % (0-2); EOSINOPHILS PERCENT AUTO 0 % (0-6); IMMATURE GRAN ABSOLUTE AUTO 0.12 K/mm3 (0.00-0.10); IMMATURE GRAN PERCENT AUTO 1 % (0-1); LYMPHOCYTES ABSOLUTE AUTO 1.52 K/mm3 (0.84-5.20); LYMPHOCYTES PERCENT AUTO 11 % (21-46); MONOCYTES ABSOLUTE AUTO 0.14 K/mm3 (0.16-1.47); MONOCYTES PERCENT AUTO 1 % (4-13); Mean Corpuscular HGB 30.2 pg (26.0-34.0); Mean Corpuscular HGB Conc 29.3 g/dL (31.5-36.5); Mean Corpuscular Volume 103 fL (80-100); NEUTROPHILS ABSOLUTE AUTO 11.56 K/mm3 (1.96-9.15); NEUTROPHILS PERCENT AUTO 87 % (41-73); Platelet Count 264 K/mm3 (150-400); RDW Coefficient Variation 15.4 % (11.7-14.2); RDW Standard Deviation 58.9 fL (35.1-46.3); Red Blood Cell Count 3.98 M/mm3 (3.80-5.20); White Blood Cell Count 13.36 K/mm3 (4.00-11.30)
[2022-01-23 10:12] LABS: Albumin, Blood 2.8 g/dL (3.4-5.0); Albumin/Globulin Ratio 0.7 (0.8-1.8); Bilirubin, Total 0.2 mg/dL (0.1-1.0); Creatinine, Blood 1.27 mg/dL (0.40-1.00); Total Protein, Blood 6.8 g/dL (6.4-8.2)
[2022-01-23 14:19] LABS: Free Thyroxine 1.21 ng/dL (0.70-1.60)
[2022-01-23 14:21] LABS: Thyroid Stimulating Hormone 0.635 uIU/mL (0.360-4.800)
--- NOTE | 2022-01-23 16:06 | NUR ---
AM MED SCAN PTS BAND WOULD NOT SCAN, VERIFIED PTS DATE OF , MEDICATONS WITH THE PT AND FAMILY. ROUTE AND TIME OF ADMINISTRATION. MED GIVEN TO THE PT FAMILY AT THE BEDSIDE
--- NOTE | 2022-01-23 16:16 | NUR ---
PT IS A/OX3, PLEASANT AND COOPERATIVE. THE PT IS BEDREST TODAY. PT WAS REPOSITIONED T/O THE DAY. PT'S URINARY CATH WAS REPLACED WITH A PLASTIC 18 FR DUE TO LATEX ALERGY BY THE SLAB DEPILER OPERATOR ELIUD THIS AM. PTS SON WAS AT THE BEDSIDE TODAY AND SPOKE WITH DR. WISE , CALL LIGHT IN REACH. WILL CONTINUE TO MONITOR AND ASSESS FOR CHANGES.
--- NOTE | 2022-01-24 03:21 | NUR ---
shift summary NO OVERNGIHT EVENTS. PT HAD X1 LOOSE STOOL, STOOL SAMPLE COLLECTED. CONTINUING [id number]. MEPILEX REPLACED. RC IN PLACE DRAINING CLEAR YELLOW URINE. REMAINS ON 2LO2, UNABLE TO WEAN. PT AWARE OF SPUTUM SAMPLE, UNABLE TO COUGH UP ENOUGH TO COLLECT. ABLE TO MAKE NEEDS KNOWN.
[2022-01-24 06:16] LABS: Adenovirus F 40/41 Not Detected (NOT DETECT); Astrovirus Not Detected (NOT DETECT); Campylobacter Sp Not Detected (NOT DETECT); Cryptosporidium Not Detected (NOT DETECT); Cyclospora Cayetanensis Not Detected (NOT DETECT); E. Coli O157 Not Detected (NOT DETECT); Entamoeba Histolytica Not Detected (NOT DETECT); Enteroaggregative E. coli-EAEC Not Detected (NOT DETECT); Enteropathogenic E. coli-EPEC Not Detected (NOT DETECT); Enterotoxigenic E. coli-ETEC Not Detected (NOT DETECT); Giardia Lamblia Not Detected (NOT DETECT); Norovirus GI/GII Not Detected (NOT DETECT); Plesiomonas Shigelloides Not Detected (NOT DETECT); Rotavirus A Not Detected (NOT DETECT); Salmonella Sp Not Detected (NOT DETECT); Sapovirus Not Detected (NOT DETECT); Shiga Toxin-prod E. coli-STEC Not Detected (NOT DETECT); Shigella/Enteroin E. coli-EIEC Not Detected (NOT DETECT); Vibrio Cholerae Not Detected (NOT DETECT); Vibrio Sp Not Detected (NOT DETECT); Yersinia Enterocolitica Not Detected (NOT DETECT)
--- NOTE | 2022-01-24 16:04 | NUR ---
PT IS A/OX3, WITH SOME MILD CONFUSION, PLEASANT AND COOPERATIVE. PT APPEARS TO BE BREATHING EASILY ON O2@ 2L/MIN AT THIS TIME. THE PT DENIED ANY PAIN THIS AM, PT WAS REPOSITIONED T/O THE DAY. THIS AFTERNOON THE PT WAS ASKED TO GET UP INTO THE RECLINER WITH HELP. THE PT BECAME AGITATED AND DECLINED TO GET UP AND WAS IRRIATABLE WITH ANY CARE. CARE WAS DONE PT WAS REPOSITIONED. CALL LIGHT IN REACH. WILL CONTINUE TO MONITOR AND ASSESS FOR CHANGES
[2022-01-25] MEDS ORDERED: CIPR250 PO (00:40)
--- NOTE | 2022-01-25 03:44 | NUR ---
SHIFT SUMMARY NO OVERNIGHT EVENTS. PT SLEPT WELL THROUGHOUT SHIFT. CONTINUEING [id number], HEELS ELEVATED. REMAINS ON 2LO2, NONPRODUCTIVE COUGH. DENIES PAIN/SOB. CHRONIC SABILLON DRAINING WELL. CALL LIGHT IN REACH.
[2022-01-25 06:23] LABS: BASOPHILS ABSOLUTE AUTO 0.01 K/mm3 (0.00-0.23); BASOPHILS PERCENT AUTO 0 % (0-2); EOSINOPHILS PERCENT AUTO 0 % (0-6); Hematocrit 40.3 % (33.0-51.0); Hemoglobin 12.1 g/dL (11.5-16.0); IMMATURE GRAN ABSOLUTE AUTO 0.09 K/mm3 (0.00-0.10); IMMATURE GRAN PERCENT AUTO 1 % (0-1); LYMPHOCYTES ABSOLUTE AUTO 1.35 K/mm3 (0.84-5.20); LYMPHOCYTES PERCENT AUTO 11 % (21-46); MONOCYTES ABSOLUTE AUTO 0.76 K/mm3 (0.16-1.47); MONOCYTES PERCENT AUTO 6 % (4-13); Mean Corpuscular HGB 30.4 pg (26.0-34.0); Mean Corpuscular Volume 101 fL (80-100); Mean Platelet Volume 9.7 fL (9.1-12.4); NEUTROPHILS PERCENT AUTO 81 % (41-73); Platelet Count 272 K/mm3 (150-400); RDW Coefficient Variation 15.1 % (11.7-14.2); RDW Standard Deviation 56.8 fL (35.1-46.3); Red Blood Cell Count 3.98 M/mm3 (3.80-5.20); White Blood Cell Count 11.91 K/mm3 (4.00-11.30)
[2022-01-25 06:51] LABS: Bun/Creatinine Ratio 38.7 (12.0-20.0); Calcium, Blood 10.2 mg/dL (8.5-10.1); Creatinine, Blood 0.91 mg/dL (0.40-1.00); Potassium, Blood 4.1 mmol/L (3.5-5.5)
--- NOTE | 2022-01-25 19:12 | NUR ---
SHIFT SUMMARY PT A&OX3-4 AND PLEASANT. SON AND DAUGHTER AT BEDSIDE DURING MORNING AND EARLY AFTERNOON. PT ATE VERY LITTLE. NO C/O PAIN. PHYSICAL THERAPY WORKED WITH PT AND WAS ABLE TO GET HER UP TO CHAIR. PT WAS UP TO CHAIR FOR A FEW HOURS THIS AFTEROON AND OVERHEAD LIFT WAS USED TO GET PT BACK TO BED. PT SATING >95% ON 2L OF 02. BED IN LOWEST POSITION AND CALL LIGHT IN REACH.
--- NOTE | 2022-01-26 03:38 | NUR ---
SHIFT SUMMARY NO OVERNIGHT EVENTS. CONTINUES 2QTURNS. REMAINS ON 2LO2, DENIES SOB, HAS NONPRODUCTIVE COUGH. SABILLON CATHETER DRAINING CLEAR YELLOW URINE. POOR APPETITE, DIDNT EAT DINNER. ABLE TO MAKE NEEDS KNOWN, CALL LIGHT IN REACH.
--- NOTE | 2022-01-26 18:50 | NUR ---
SHIFT SUMMARY NO ACUTE CHANGES. PT A&OX2/3 AND PLEASANT. FAMILY AT BEDSIDE THIS AM AND ASSISTED PT WITH EATING. PT ATE VERY LITTLE AGAIN TODAY. PT HAVING LIQUID STOOL TODAY. VSS HOWEVER B/P IN AFTERNOON WAS A ELEVATED. BED IN LOWEST POSITION AND CALL LIGHT IN REACH.
--- NOTE | 2022-01-27 09:20 | NUR ---
SHIFT SUMMARY A&O X 2-3. VSS. CALM AND COOPERATIVE WITH CARE. DENIES PAIN. BLE EDEMA +2, REDNESS. PT INCONTINENT OF BOWEL. SABILLON CATHETER LEAKING AND SATURATED CHUCKS PAD. SABILLON REMOVED AND NEW ONE INSERTED. BED ALARM ON. WILL CONTINUE TO MONITOR AND FOLLOW PLAN OF CARE.
[2022-01-27] MEDS ORDERED: AMIT25 PO (12:27)
[2022-01-27] MEDS ORDERED: Sanctura20 MG PO (12:28)
[2022-01-27] MEDS ORDERED: ASPI81CH PO (12:28)
[2022-01-27 13:39] LABS: SARS-Cov-2 (COVID-19) PCR, MMC NEGATIVE (NEGATIVE)
--- NOTE | 2022-01-27 20:50 | NUR ---
SHIFT SUMMARY PTN A&O X3, HERE FOR SOB AND RESPIRATORY FAILURE, IMPROVED. HX STROKE WITH L-SIDED WEAKNESS. PTN WORKED WITH OT AND PT THIS SHIFT, AND WAS ABLE TO GET UP TO CHAIR FOR AN EXTENDED PART OF DAY. PTN TAKES MEDICATIONS IN APPLESAUCE AND IS NOT ABLE TO GRAB THE CUP OR FOOD, SO IS A ONE-ON-ONE FEEDER, AND NEEDS TO BE GIVEN SIPS NEEDED. RT SAW PTN AND TOOK HER OFF O2, AND ON FOLLOW-UP CHECKS HER SATS RAN 98% AND EVEN 99%. RT SUGGESTED SLEEP STUDY FOR NIGHTIME O2. PTN HAS CHRONIC SABILLON AND AT END SHIFT SHE MENTIONED IT HAD BEEN LEAKING SINCE NOON. THIS WAS PASSED ON TO CLAIMS ATTORNEY. BUTTOCKS CLEANED AND DRIED AND NEW MEPILEX APPLIED. PLAN IS FOR PTN TO TRANSFER TO SNF TOMORROW.
--- NOTE | 2022-01-28 03:23 | NUR ---
Patient resting in bed, no complaints of pain or discomfort.
[2022-01-28 12:28] LABS: Hemoglobin 13.8 g/dL (11.5-16.0)
[2022-01-28 13:06] LABS: Bun/Creatinine Ratio 36.1 (12.0-20.0); Calcium, Blood 10.8 mg/dL (8.5-10.1); Creatinine, Blood 0.78 mg/dL (0.40-1.00); Potassium, Blood 3.9 mmol/L (3.5-5.5)
[2022-01-28 13:41] LABS: Source, Urine Foley catheter
[2022-01-28 13:47] LABS: Bilirubin, Urine Neg (Neg); Blood, Urine 3+ (Neg); Glucose Qualitative, Urine Neg (Neg); Ketones, Urine Neg (Neg); Leukocyte Esterase, Urine 3+ (Neg); Nitrite, Urine Pos (Neg); Protein, Urine 2+ (Neg); Specific Gravity, Urine 1.015 (1.003-1.022); Urobilinogen, Urine NORM (Normal); pH, Urine 6.5 (5.0-8.0)
[2022-01-28 15:11] LABS: Appearance, Urine Clear (Clear); Color, Urine Yellow (P-Yellow)
[2022-01-28 15:14] LABS: Renal Epithelial Rare /hpf (0-Rare); Transitional Epithelial Cells Few /hpf (0-Rare); White Blood Cells, Urine 25-50 /hpf (0-5)
[2022-01-28 15:15] LABS: Squamous Epithelial Cells Rare /hpf (Few)
[2022-01-28 15:16] LABS: Bacteria Many /hpf
--- NOTE | 2022-01-28 16:16 | NUR ---
SHIFT SUMMARY MS HILL IS ABLE TO ANSWER ALL ORIENTATION QUESTIONS, IS SOMETIMES FORGETFUL. HER SON WAS HERE THIS MORNING FOR A FEW HOURS AND IS VERY INVOLVED IN HER CARE. PT HAS VERY DISTENDED, FIRM ABDOMEN. SHE DENIED PAIN UNLESS PALPATED. STATUS CHANGED TO NPO THIS MORNING, ABD CT SCAN DONE AND IVF STARTED FOR HYDRATION. DUCULOX SUPPOSITORY GIVEN WITH NO RESULT YET. PT SAID SHE FEELS VERY WEAK. SHE HAS WORKED WITH OT AND PT TODAY BUT HAS NOT FELT UP TO GETTING INTO THE CHAIR. SABILLON CATHETER IN PLACE. HER PERINEAL AREA IS RED AND SWOLLEN. HER SON SAID THAT PT IS ALLERGIC TO LATEX AND GETS RED ADN SWOLLEN WHEN LATEX SABILLON IS IN PLACE. HE ALSO SAID THAT SHE HAS A CHRONIC SABILLON AT HOME WITH SEDIMENT IN HER URINE PT'S UROLOGIST RECOMMENDS [id number] FLUSH TO THE SABILLON WITH 40CC STERILE WATER. SABILLON CATHETER REMOVED AND REPLACED WITH 18F LATEX FREE SABILLON CATHETER, FLUSHED TWICE SO FAR WITH 40CC WATER, EASY FLUSH WITH 40CC RETURN OF CLOUDY YELLOW URINE. PT SAID SHE FELT THE DIFFERENCE AND NOTED IMPROVEMENT SOON SABILLON HAD BEEN CHANGED. BP AND HEART RATE REMAIN ELEVATED, PREVIOUSLY NOTED. NO SPUTUM EXPECTORATED TO SEND TO LAB. BED LOW, CALL LIGHT IN REACH.
--- NOTE | 2022-01-28 18:24 | NUR ---
RN NOTE DIET ORDER RESUMED PER DR SETHI NO SURGICAL CONCERNS ON CT SCAN. SHE ONLY TOOK 15% OF HER SUPPER. IVF CONTINUE AT THIS TIME.
--- NOTE | 2022-01-29 03:15 | NUR ---
Patient resting in bed, no complaints of pain or discomfort at this time.
--- NOTE | 2022-01-29 10:00 | NUR ---
SHIFT SUMMARY PT IS WITH HER SON AT BEDSIDE. SON WITH QUESTIONS REGARDING STATUS UPDATE OF RECENT ABD CT RESULTS. DISCUSSED PT'S PLAN TO DISCHARGE TO [facility]. ROOM AIR. IV IN LEFT AC. INCONTINENT OF BOWEL IN ATTENDS. ON ISOLATION PRECAUTIONS FOR ESBL/MRSA IN URINE. HISTORY OF STROKE WITH LEFT SIDED DEFICITS, LEFT HAND CONTRACTED. SLOW SPEECH, BUT COMPREHENSIBLE. BED IN LOWEST POSITION, CALL LIGHT WITHIN REACH.
--- NOTE | 2022-01-29 12:28 | NUR ---
LATE ENTRY: PT TAKEN TO OR VIA MEDICAL BED AT 09:40. PT ARRIVED BACK TO MEDICAL FLOOR AT 12:15 VIA MEDICAL BED. VITAL SIGNS STABLE. ROOM AIR. POD #0 S/P LBKA. SABILLON INTACT, DRAINING YELLOW URINE TO GRAVITY. PT IS AWAKE, AND RESPONSIVE. ACCOMPANIED BY HER SUPPORT PEOPLE, "TA EVIE" ANNA AND FRIEND RUFINO. ROOM AIR. POWERGLIDE IS INTACT TO LEFT ARM. PER PACU REPORT GIVEN TO THIS RN, PT PRODUCED 100ML URINE OUTPUT. PER REPORT, PT HAS BULKY GAUZE DRESSING WRAPPED WITH MACO BANDAGE. INSPECTOR OPTICAL INSTRUMENT STATES THAT THERE IS A MELODY DRAIN UNDER THE MACO BANDAGE. RN WILL CONTINUE TO MONITOR VS AND MENTATION, SLOWLY PROGRESS TO EATING.
[2022-01-29 12:34] LABS: SARS-Cov-2 (COVID-19) PCR, MMC NEGATIVE (NEGATIVE)
--- NOTE | 2022-01-29 15:55 | NUR ---
PT WAS DISCHARGED TO CARE OF MEDICAL TRANSPORT TO [facility], WITH ALL PERSONAL BELONGINGS AND FACESHEET, WITH PACKET, GIVEN TO TRANSPORT PERSONNEL. IV REMOVED. CHRONIC INDWELLING SABILLON REMAINS INTACT AND DRAINING TO GRAVITY.
--- NOTE | 2022-01-29 17:15 | NUR ---
RN GAVE REPORT OVER THE PHONE TO NURSE RODAS FROM [facility].
== END 2022-01-29 15:12 | DRG 189 ==
LOC: ER 20:52 → MEDS 20:53 → ER 21:45 → MEDS 01-23 00:31 → ENPENDDIS 01-27 13:20 → MEDS 01-29 15:12
PROVIDERS: Internal Medicine; Student in an Organized Health Care Education/Training Program; ADMIT Internal Medicine
DX: J96.01 Acute respiratory failure with hypoxia (principal); N17.9 Acute kidney failure, unspecified; J44.0 Chronic obstructive pulmonary disease with (acute) lower respiratory infection; J98.11 Atelectasis; I69.354 Hemiplegia and hemiparesis following cerebral infarction affecting left non-dominant side; I48.20 Chronic atrial fibrillation, unspecified; I48.92 Unspecified atrial flutter; J44.1 Chronic obstructive pulmonary disease with (acute) exacerbation; K56.7 Ileus, unspecified; Z28.21 Immunization not carried out because of patient refusal; Z20.822 Contact with and (suspected) exposure to COVID-19; Z74.01 Bed confinement status; I12.9 Hypertensive chronic kidney disease with stage 1 through stage 4 chronic kidney disease, or unspecified chronic kidney disease; E11.22 Type 2 diabetes mellitus with diabetic chronic kidney disease; B34.9 Viral infection, unspecified; N18.30 Chronic kidney disease, stage 3 unspecified; I48.0 Paroxysmal atrial fibrillation; K59.81 Ogilvie syndrome; E11.40 Type 2 diabetes mellitus with diabetic neuropathy, unspecified; Z95.0 Presence of cardiac pacemaker; Z90.5 Acquired absence of kidney; Z90.710 Acquired absence of both cervix and uterus; Z88.1 Allergy status to other antibiotic agents; Z91.011 Allergy to milk products; Z91.018 Allergy to other foods; Z79.899 Other long term (current) drug therapy
CPT/HCPCS: 0241U; 36415; 71045; 71046; 74019; 74176; 80048; 80053; 81001; 82947; 83880; 84439; 84443; 85014; 85018; 85025; 87086; 87507; 93005; 93010; 94760; 94761; 94762; 96374; 97110; 97112; 97162; 97166; 97530; 97535; 99285-25; A9270; J0456; J2930; J7030; J7050; J7512; U0004